=== PATIENT | female | born 1980 | race Caucasian/White ===

== ENCOUNTER → 2017-07-18 | Emergency (ER) | payer OTHER ==
[~2017-07-18] VITALS: Ht 157.5 cm; Wt 79.4 kg
[~2017-07-18] MED LIST: ABILIFY15 MG PO; CELEXA10 MG PO; CLEOCIN40 GM TP; HYDROXYZINE PA100 MG PO; IMITREX100 MG PO; KEFLEX500 MG PO; OMEPRAZOLE20 MG PO; PRAZOSIN HCL1 MG PO; PROPANOLOL PO; VISTARIL25 MG PO; VITAMIN D50000 UNI1 PO; VIVLODEX10 MG PO; ZYPREXA5 MG PO
== END ==
LOC: ED 10:59
DX: N89.8 Other specified noninflammatory disorders of vagina (principal); E87.6 Hypokalemia; F15.10 Other stimulant abuse, uncomplicated; F17.200 Nicotine dependence, unspecified, uncomplicated; F41.9 Anxiety disorder, unspecified; F32.9 Major depressive disorder, single episode, unspecified; Z87.442 Personal history of urinary calculi; Z90.49 Acquired absence of other specified parts of digestive tract; Z98.51 Tubal ligation status; Z88.8 Allergy status to other drugs, medicaments and biological substances; Z79.899 Other long term (current) drug therapy
CPT/HCPCS: 80053; 81001; 84703; 85025; 86703; 87070; 87147; 87205; 87220; 87491; 87591; 96374; 99284; J0696; J7030

== ENCOUNTER 2017-08-05 14:37 | Emergency (ER) | payer OTHER ==
[~2017-08-05] VITALS: Ht 157.5 cm; Wt 79.4 kg
[~2017-08-05 14:37] MED LIST changes: -VIVLODEX10 MG PO
[2017-08-05] MEDS ORDERED: VIVLODEX10 MG PO (14:54)
== END 2017-08-05 17:51 | disposition home or self-care (01) ==
LOC: ED 14:37
PROC: 0T9B70Z Drainage of Bladder with Drainage Device, Via Natural or Artificial Opening (ICD-10-PCS; principal; 2017-08-05)
DX: Z00.8 Encounter for other general examination (principal); F41.9 Anxiety disorder, unspecified; F32.9 Major depressive disorder, single episode, unspecified; F17.200 Nicotine dependence, unspecified, uncomplicated; Z90.49 Acquired absence of other specified parts of digestive tract; Z87.442 Personal history of urinary calculi; Z98.51 Tubal ligation status; Z88.8 Allergy status to other drugs, medicaments and biological substances; Z79.899 Other long term (current) drug therapy
CPT/HCPCS: 36415; 51701; 80053; 80176; 81001; 84443; 84703; 85025; 99283; G0480

== ENCOUNTER 2017-11-13 16:38 | Emergency (ER) | payer OTHER ==
[~2017-11-13] VITALS: Ht 157.5 cm; Wt 79.8 kg
[~2017-11-13 16:38] MED LIST changes: +VIVLODEX10 MG PO
--- NOTE | 2017-11-14 12:11 | NUR ---
MILO: [employer] CALLED REQUESTING THAT THE PT'S LAB RESULTS BE FAXED OVER. LABS WERE FAXED AND I GOT CONFIRMATION THEY WERE RECIEVED.
== END 2017-11-13 19:06 | disposition home or self-care (01) ==
LOC: ED 16:38
DX: S64.01XA Injury of ulnar nerve at wrist and hand level of right arm, initial encounter (principal); Z02.89 Encounter for other administrative examinations; Z88.8 Allergy status to other drugs, medicaments and biological substances; F17.200 Nicotine dependence, unspecified, uncomplicated; Z90.49 Acquired absence of other specified parts of digestive tract; Z98.51 Tubal ligation status; Z79.899 Other long term (current) drug therapy; Z87.442 Personal history of urinary calculi; W22.8XXA Striking against or struck by other objects, initial encounter
CPT/HCPCS: 80053; 80176; 81001; 84443; 85025; 99283; G0480

== ENCOUNTER 2019-01-22 20:49 | Emergency (ER) | payer OTHER ==
[~2019-01-22] VITALS: Ht 157.5 cm; Wt 81.7 kg
[~2019-01-22 20:49] MED LIST changes: +BACTRIM DS TAB1 EACH PO; +CIPRO500 MG PO; +CLONIDINE HCL0.1 MG PO; +NORCO 5-325 TA1 EACH PO
--- OUTSIDE RECORDS SUMMARY | 2019-01-22 20:52 | XMS ---
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 Presenting Problem: Pt has had 10 ED visits within multiple health systems in 12 months. Mult. Complaints UTI/Cervical Infection Bumps on arm Rash all over Anxiety Disorder Hypokalemia Headache Abdominal Pain Anxiety Disorder Anxiety Disorder Primary Providers: Unsure if patient has PCP in hometown of [place] Barriers to connection to outpatient care: Recent relocation to [place], [place] for [facility] residential treatment program, will need to establish PCP care Strengths and Supports: Pt has insurance Safety Concerns: History of substance abuse and anxiety Plan when in the ED: Provide appropriate but directed workup and disposition Provide education on appropriate use of the ED and alternatives to address non-emergent issues such as urgent care clinics and walk in clinics Encourage follow up and connection with outpatient providers Care History Medical/Surgical 06/30/2018 [facility] - PATIENT HAS NOT ESTABLISHED CARE WITH DR GAYLE PCP. PATIENT HAS NO SHOWED 3X TO EVERY APT TO ESTABLISH CARE WITH PROVIDER. PLEASE DIRECT PATIENT TO CLINIC FOR NON EMERGENT MEDICAL NEEDS. - Patient is currently established with [facility]. If patient is seen in the ED during business hours. Please contact CHWs at [facility]. Care Recommendation: This patient has had 5 or more Emergency Department visits in the last 12 months.\T\nbsp; Patient requires education on the scope and purpose of the ED as an acute care provider not a Primary Care Provider and should not be utilized for chronic conditions.\T\nbsp; These are guidelines and the provider should exercise clinical judgment when providing care. E.D. VISIT COUNT (12 MO.) 2 [facility] [address] TOTAL 9 NOTE: Visits indicate total known visits. ED/UCC VISIT TRACKING (12 MO.) 01/22/2019 20:49 T[facility] Ramirez TYPE: Emergency COMPLAINT: - SORE THROAT 11/11/2018 12:35 TESFA[facility] Ramirez TYPE: Emergency COMPLAINT: - MEDICAL CLEARANCE DIAGNOSES: - Other mcfp (current) drug therapy - Anxiety disorder, unspecified - Nicotine dependence, unspecified, uncomplicated - USP (current) use of aspirin - Migraine, unspecified, not intractable, without status migrainosus - Encounter for other general examination - Major depressive disorder, single episode, unspecified - Post-traumatic stress disorder, unspecified - Schizoaffective disorder, unspecified - Allergy status to other antibiotic agents status - Sedative, hypnotic or anxiolytic abuse, uncomplicated 10/19/2018 08:55 [facility] Xiomara MONIQUE TYPE: Emergency DIAGNOSES: - Unspecified psychosis not due to a substance or known physiological condition 10/18/2018 10:26 [facility] Xi[facility]ara Hernandeza Bala MONIQUE TYPE: Emergency DIAGNOSES: - Unspecified psychosis not due to a substance or known physiological condition - Medical Evaluation 09/21/2018 19:30 [facility] DIAGNOSES: 0. WHEEZING SHORT OF BREATH 09/17/2018 23:31 [facility]: [facility] DIAGNOSES: 0. 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 06/28/2018 13:42 T[facility] Car[facility] [place] TYPE: Emergency COMPLAINT: - WOUND CHECK/MSE TO CLINIC DIAGNOSES: - Encounter for surgical aftercare following surgery on the skin and subcutaneous tissue - Nicotine dependence, unspecified, uncomplicated - Cutaneous abscess of left axilla 06/26/2018 20:59 TES[facility] Carrera [place] TYPE: Emergency COMPLAINT: - POSS ABCESS ON LEFT ARM DIAGNOSES: - Other moth exterminator (current) drug therapy - Anxiety disorder, unspecified - Cutaneous abscess of left axilla - Allergy status to other drugs, medicaments and biological substances status - Major depressive disorder, single episode, unspecified - Migraine, unspecified, not intractable, without status migrainosus - Post-traumatic stress disorder, unspecified - Nicotine dependence, unspecified, uncomplicated - Cutaneous abscess of right axilla INPATIENT VISIT TRACKING (12 MO.) 09/21/2018 22:40 [facility] [place] TYPE: [facility] DIAGNOSES: 0. ACUTE HYPOXIC RESPIRATORY FAILRURE ALEXANDR COMM PNEUMO [email or web address]
[2019-01-22] MEDS ORDERED: CLARITHROMYCIN500 MG PO (23:02)
== END 2019-01-22 23:16 | disposition home or self-care (01) ==
LOC: ED 20:49
DX: J02.9 Acute pharyngitis, unspecified (principal); F41.9 Anxiety disorder, unspecified; F32.9 Major depressive disorder, single episode, unspecified; F43.10 Post-traumatic stress disorder, unspecified; G43.909 Migraine, unspecified, not intractable, without status migrainosus; F17.200 Nicotine dependence, unspecified, uncomplicated; Z88.8 Allergy status to other drugs, medicaments and biological substances; Z88.2 Allergy status to sulfonamides; Z88.1 Allergy status to other antibiotic agents; Z79.899 Other long term (current) drug therapy
CPT/HCPCS: 87880; 99283

== ENCOUNTER 2019-12-09 22:59 | Emergency (ER) | payer OTHER ==
[~2019-12-09] VITALS: Ht 157.5 cm; Wt 81.6 kg
--- OUTSIDE RECORDS SUMMARY | ~2019-12-09 | XMS | Encounter Summary ---
Demographics + + + | Address | [address] | | | [place] [address] | + + + | Home Phone | | + + + | Preferred Language | Unknown | + + + | Marital Status | Single | + + + | Judaism Affiliation | Unknown | + + + | Race | Unknown | + + + | Ethnic Group | Unknown | + + + Author + + + | Author | [facility] | | | and [place] | + + + | Organization | [facility] | | | and [place] | + + + | Address | Unknown | + + + | Phone | Unavailable | + + + Support + + + + + | Name | Relationship | Address | Phone | + + + + + | Vanesa Shukla | ECON | [place] | | | | | [address] | | + + + + + | Vanesa Shukla | ECON | [place] | | | | | [phone] | | + + + + + Care Team Providers + +------+ + | Care Automobile Mechanic Assistant Name | Role | Phone | + +------+ + PCP | Unavailable | + +------+ + Encounter Details +--------+ + + + + | Date | Type | Department | Care Team | Description | +--------+ + + + + | 10/29/ | Hospital | [facility] | | | | 2000 | Encounter | [facility] | | | | | | CENTER [address] | | | | | | [place] | | | | | | [address] | | | | | | [phone] | | | +--------+ + + + + Social History + +-------+ +--------+------+ | Tobacco Use | Types | Packs/Day | Years | Date | | | | | Used | | + +-------+ +--------+------+ | Never Assessed | | | | | + +-------+ +--------+------+ + + + | Sex Assigned at | Date Recorded | | | | + + + | Not on file | | + + + + + + + | Job Start Date | Occupation | Industry | + + + + | Not on file | Not on file | Not on file | + + + + + + + + | Travel History | Travel Start | Travel End | + + + + + + | No recent travel history available. | + + documented as of this encounter Plan of Treatment Not on filedocumented as of this encounter Visit Diagnoses Not on filedocumented in this encounter"
--- OUTSIDE RECORDS SUMMARY | ~2019-12-09 | XMS | Encounter Summary ---
Demographics + + + | Address | [address] | | | [place] [address] | + + + | Home Phone | | + + + | Preferred Language | Unknown | + + + | Marital Status | Single | + + + | Latter Day Affiliation | Unknown | + + + | Race | Unknown | + + + | Ethnic Group | Unknown | + + + Author + + + | Author | [facility] | | | and [place] | + + + | Organization | [facility] | | | and [place] | + + + | Address | Unknown | + + + | Phone | Unavailable | + + + Support + + + + + | Name | Relationship | Address | Phone | + + + + + | Vanesa Shukla | ECON | [place] | | | | | [phone] | | + + + + + | Vanesa Shukla | ECON | [place] | | | | | [address] | | + + + + + Care Team Providers + +------+ + | Care Topographical Surveyor Name | Role | Phone | + +------+ + PCP | Unavailable | + +------+ + Encounter Details +--------+ + + + + | Date | Type | Department | Care Team | Description | +--------+ + + + + | 09/17/ | Hospital | [facility] | | | | 2004 | Encounter | MED CTR XRAY [address] | | | | | | [address] [place] | | | | | | [place] [address] | | | | | | [phone] | | | +--------+ + + + [...]
--- OUTSIDE RECORDS SUMMARY | ~2019-12-09 | XMS | Encounter Summary ---
Demographics + + + | Address | [address] | | | [place] [address] | + + + | Home Phone | | + + + | Preferred Language | Unknown | + + + | Marital Status | Single | + + + | Denominational Affiliation | Unknown | + + + | Race | Unknown | + + + | Ethnic Group | Unknown | + + + Author + + + | Author | [facility] | | | and [place] | + + + | Organization | [facility] [place] | | | and [place] | + + + | Address | Unknown | + + + | Phone | Unavailable | + + + Support + + + + + | Name | Relationship | Address | Phone | + + + + + | Vanesa Shukla | ECON | [place] | | | | | [address] | | + + + + + | Vanesa Shukla | ECON | [place] | | | | | [address] | | + + + + + Care Team Providers + +------+ + | Care Filter Assembler Name | Role | Phone | + +------+ + PCP | Unavailable | + +------+ + Encounter Details +--------+ + + + + | Date | Type | Department | Care Team | Description | +--------+ + + + + | 10/12/ | Hospital | [facility] | Jesus Espinal | | | 2010 - | Encounter | MED CTR EMERGENCY | MD Miller [address] | | | | | [place]ENNET[place] [address] | [facility] | | | 10/13/ | | [place], [place] | [place] [address] | | | 2010 | | [address] | [phone] | | | | | [phone] | | | +--------+ + + + [...] Not on filedocumented as of this encounter Procedures + +--------+ + + + | Procedure Name | Priori | Date/Time | Associated Diagnosis | Comments | | | ty | | | | + +--------+ + + + | DRUGS OF ABUSE, | Routin | 10/13/2011 | | Results for this | | SCREEN, URINE | e | 2:14 AM | | procedure are in the | | | | PST | | results section. | + +--------+ + + + | CBC WITH | Routin | 10/12/2011 | | Results for this | | DIFFERENTIAL | e | 10:55 PM | | procedure are in the | | | | PST | | results section. | + +--------+ + + + | BASIC METABOLIC | Routin | 10/12/2011 | | Results for this | | PANEL | e | 10:55 PM | | procedure are in the | | | | PST | | results section. | + +--------+ + + + | CT ABDOMEN PELVIS W | | 10/12/2011 | | Results for this | | CONTRAST | | 9:30 PM | | procedure are in the | | | | PST | | results section. | + +--------+ + + + documented in this encounter Results Drugs of Abuse, Screen, Urine (10/13/2011 2:14 AM PST) + + + + + + | Component | Value | Ref Range | Performed | Pathologist | | | | | At | Signature | + + + + + + | Amphetamine | POSITIVE | NEGATIVE | [facility] | | | Screen, | | | [facility] | | | Urine | | | MEDICAL | | | | | | CENTER - | | | | | | LABORATORY | | + + + + + + | Barbiturate | NEGATIVE | NEGATIVE | [facility] | | | s Screen, | | | [facility] | | | Urine | | | MEDICAL | | | | | | CENTER - | | | | | | LABORATORY | | + + + + + + | Benzodiazep | NEGATIVE | NEGATIVE | [facility] | | | britt | | | [facility] | | | Screen, | | | MEDICAL | | | Urine | | | CENTER - | | | | | | LABORATORY | | + + + + + + | Cannabinoid | POSITIVE | NEGATIVE | [facility] | | | s Screen, | | | [facility] | | | Urine | | | MEDICAL | | | | | | CENTER - | | | | | | LABORATORY | | + + + + + + | Cocaine | NEGATIVE | NEGATIVE | [facility] | | | Metabolite | | | [facility] | | | | | | MEDICAL | | | | | | CENTER - | | | | | | LABORATORY | | + + + + + + | Opiates | NEGATIVEComment: The | NEGATIVE | [facility] | | | Screen, | following drugs or | | [facility] | | | Urine | classes were screened | | MEDICAL | | | | for by immunoassay at | | CENTER - | | | | these cutoff | | LABORATORY | | | | concentrations: | | | | | | Amphetamines | | | | | | 1000 ng/mL | | | | | | Barbiturates | | | | | | 200 ng/mL | | | | | | Benzodiazepines | | | | | | 200 ng/mL | | | | | | Cannabinoids | | | | | | 50 ng/mL | | | | | | Cocaine Metabolite | | | | | | 300 ng/mL | | | | | | Opiates | | | | | | 300 ng/mL | | | | | | This emergency urinary | | | | | | drug screen will not | | | | | | exclude drugs at | | | | | | levels below the | | | | | | cut-off point for | | | | | | screening, and may not | | | | | | correlate with current | | | | | | blood levels. These | | | | | | results should not be | | | | | | used for non-medical | | | | | | purposes. For important | | | | | | clinical decisions, | | | | | | confirmation by separate | | | | | | assay should be done. | | | | | | | | | | + + + + + + + + | Specimen | + + | | + + + + + + + | Performing | Address | City/State/Zipcode | Phone Number | | Organization | | | | + + + + + | [facility] | [address] | [place], [place] | [phone] | | [facility] | | [address] | | | - LABORATORY | | | | + + + + + | [facility] | [address] | [place], [place] | | | [facility] | | [address] | | | - LABORATORY | | | | + + + + + CBC with Differential (10/12/2011 10:55 PM PST) + + + + + + | Component | Value | Ref Range | Performed | Pathologist | | | | | At | Signature | + + + + + + | WBC | 11.3 (H) | 4.0 - 11.0 K/uL | [facility] | | | [facility] | | | | | | MEDICAL | | | | | | CENTER - | | | | | | LABORATORY | | + + + + + + | RBC | 4.51 | 3.70 - 5.20 | [facility] | | | | | M/uL | [facility] | | | | | | MEDICAL | | | | | | CENTER - | | | | | | LABORATORY | | + + + + + + | Hemoglobin | 13.9 | 11.5 - 16.0 | [facility] | | | | | gm/dL | [facility] | | | | | | MEDICAL | | | | | | CENTER - | | | | | | LABORATORY | | + + + + + + | Hematocrit | 40.4 | 34.0 - 47.0 % | [facility] | | | | | | [facility] | | | | | | MEDICAL | | | | | | CENTER - | | | | | | LABORATORY | | + + + + + + | MCV | 89.8 | 83.0 - 101.0 fL | [facility] | | | | | | [facility] | | | | | | MEDICAL | | | | | | CENTER - | | | | | | LABORATORY | | + + + + + + | MCH | 31.0 | 28.0 - 35.0 pg | [facility] | | | | | | [facility] | | | | | | MEDICAL | | | | | | CENTER - | | | | | | LABORATORY | | + + + + + + | MCHC | 34.5 | 32.0 - 36.0 | [facility] | | | | | g/dL | [facility] | | | | | | MEDICAL | | | | | | CENTER - | | | | | | LABORATORY | | + + + + + + | RDW-CV | 14.3 | <15.0 % | [facility] | | | | | | [facility] | | | | | | MEDICAL | | | | | | CENTER - | | | | | | LABORATORY | | + + + + + + | Platelet | 369 | 140 - 440 K/uL | [facility] | | | Count | | | [facility] | | | | | | MEDICAL | | | | | | CENTER - | | | | | | LABORATORY | | + + + + + + | % | 77.6 (H) | 45 - 75 % | [facility] | | | Neutrophils | | | [facility] | | | | | | MEDICAL | | | | | | CENTER - | | | | | | LABORATORY | | + + + + + + | % | 16.3 (L) | 20 - 45 % | [facility] | | | Lymphocytes | | | [facility] | | | | | | MEDICAL | | | | | | CENTER - | | | | | | LABORATORY | | + + + + + + | % Monocytes | 4.3 | 4 - 12 % | [facility] | | | | | | [facility] | | | | | | MEDICAL | | | | | | CENTER - | | | | | | LABORATORY | | + + + + + + | % | 1.1 | 0 - 5 % | [facility] | | | Eosinophils | | | [facility] | | | | | | MEDICAL | | | | | | CENTER - | | | | | | LABORATORY | | + + + + + + | % Basophils | 0.7 | 0 - 1 % | [facility] | | | | | | [facility] | | | | | | MEDICAL | | | | | | CENTER - | | | | | | LABORATORY | | + + + + + + | Absolute | 8.8 (H) | 1.5 - 6.6 K/uL | [facility] | | | Neutrophils | | | [facility] | | | | | | MEDICAL | | | | | | CENTER - | | | | | | LABORATORY | | + + + + + + | Absolute | 1.8 | 0.6 - 3.2 K/uL | [facility] | | | Lymphocytes | | | [facility] | | | | | | MEDICAL | | | | | | CENTER - | | | | | | LABORATORY | | + + + + + + | Absolute | 0.5 | 0.0 - 1.0 K/uL | [facility] | | | Monocytes | | | [facility] | | | | | | MEDICAL | | | | | | CENTER - | | | | | | LABORATORY | | + + + + + + | Absolute | 0.1 | 0.0 - 0.4 K/uL | [facility] | | | Eosinophils | | | [facility] | | | | | | MEDICAL | | | | | | CENTER - | | | | | | LABORATORY | | + + + + + + | Absolute | 0.1 | 0.0 - 0.1 K/uL | [facility] | | | Basophils | | | [facility] | | | | | | MEDICAL | | | | | | CENTER - | | | | | | LABORATORY | | + + + + + + + + | Specimen | + + | | + + + + + + + | Performing | Address | City/State/Zipcode | Phone Number | | Organization | | | | + + + + + | [facility] | [address] | [place] | [phone] | | [facility] | | [address] | | | - LABORATORY | | | | + + + + + | [facility] | [address] | [place] | | | [facility] | | [address] | | | - LABORATORY | | | | + + + + + Basic Metabolic Panel (10/12/2011 10:55 PM PST) + + + + + + | Component | Value | Ref Range | Performed | Pathologist | | | | | At | Signature | + + + + + + | Glucose | 82 | 70 - 109 mg/dL | [facility] | | | | | | [facility] | | | | | | MEDICAL | | | | | | CENTER - | | | | | | LABORATORY | | + + + + + + | Calcium | 9.2 | 8.3 - 10.5 | [facility] | | | | | mg/dL | [facility] | | | | | | MEDICAL | | | | | | CENTER - | | | | | | LABORATORY | | + + + + + + | BUN | 9 | 7 - 18 mg/dL | [place] | | | | | | [facility] | | | | | | MEDICAL | | | | | | CENTER - | | | | | | LABORATORY | | + + + + + + | Creatinine | 0.89 | 0.60 - 1.30 | [facility] | | | | | mg/dL | [facility] | | | | | | MEDICAL | | | | | | CENTER - | | | | | | LABORATORY | | + + + + + + | Estimated | >60Comment: For | >60 mL/min/A | [facility] | | | GFR | -Americans, | | [facility] | | | | please multiply the | | MEDICAL | | | | result by 1.210 | | CENTER - | | | | This is an estimated | | LABORATORY | | | | GFR and is based on a | | | | | | standard adult | | | | | | body mass (A=1.73m2) and | | | | | | serum creatinine | | | | + + + + + + | BUN/Creatin | 10.1 (L) | 12 - 20 | [facility] | | | ine Ratio | | | [facility] | | | | | | MEDICAL | | | | | | CENTER - | | | | | | LABORATORY | | + + + + + + | Na | 139 | 136 - 149 mEq/L | [facility] | | | | | | [facility] | | | | | | MEDICAL | | | | | | CENTER - | | | | | | LABORATORY | | + + + + + + | K | 3.4 (L) | 3.5 - 5.1 mEq/l | [facility] | | | | | | [facility] | | | | | | MEDICAL | | | | | | CENTER - | | | | | | LABORATORY | | + + + + + + | Cl | 105 | 98 - 109 mEq/l | [facility] | | | | | | [facility] | | | | | | MEDICAL | | | | | | CENTER - | | | | | | LABORATORY | | + + + + + + | CO2 | 22 (L) | 24 - 31 mEq/L | [facility] | | | | | | [facility] | | | | | | MEDICAL | | | | | | CENTER - | | | | | | LABORATORY | | + + + + + + | Anion Gap | 15.4 | 6.0 - 17.0 | [facility] | | | | | | [facility] | | | | | | MEDICAL | | | | | | CENTER - | | | | | | LABORATORY | | + + + + + + + + | Specimen | + + | | + + + + + + + | Performing | Address | City/State/Zipcode | Phone Number | | Organization | | | | + + + + + | [facility] | [address] | [place] | [phone] | | [facility] | | [address] | | | - LABORATORY | | | | + + + + + | [facility] | [address] | [place], [place] | | | [facility] | | [address] | | | - LABORATORY | | | | + + + + + CT Abdomen Pelvis w Contrast (10/12/2011 9:30 PM PST) + + | Specimen | + + | | + + + + + | Narrative | Performed At | + + + | [facility] Diagnostic Imaging Department | [facility] | | [address] [facility] | [facility] | | CT ABDOMEN AND PELVIS WITH | DIAG IMG | | CONTRAST: 10/12/2011 CLINICAL HISTORY: BLOOD IN URINE. | | | COMPARISON: 12/19/2008. TECHNIQUE: Imaging was performed from | | | the lung bases through the pubic symphysis without and with co | | | ntrast and following the uneventful intravenous administration of 80 | | | mL of Isovue 370. FINDINGS: LOWER LUNGS: The lower lungs | | | are clear. There are no pleural effusions. No pneumothorax. | | | ABDOMEN/PELVIS: Focal fatty infiltration along the falciform | | | ligament. The remainder of the liver i s unremarkable. The | | | gallbladder is nondistended. There is a probably cyst in the right | | | kidney, unch anged in size. Unobstructing nephrolith in the left | | | upper pole. Punctate nephrolith in the left low er pole. No | | | evidence for an obstructing uropathy in either kidney. There are no | | | ureteroliths. Ther e are no adrenal masses. The spleen is | | | unremarkable. The pancreas is unremarkable. There is no rei dence | | | for gastrointestinal tract obstruction. The appendix is not clearly | | | identified. No inflammato ry changes in the right or left. There | | | is a cyst in the left adnexa, likely associated with the left ovary | | | measuring about 2.2 cm. No significant free fluid. No free air. | | | IMPRESSION: 1. A 2.2 CM CYSTIC STRUCTURE IN THE LEFT | | | ADNEXA, LIKELY AN OVARIAN CYST. 2. STABLE SMALL CYSTIC STRUCTURE | | | IN THE RIGHT KIDNEY, PRESUMED TO BE A SIMPLE CYST, TO SMALL TO TERA | | | ACTERIZE ON THIS EXAM. COMMENT: PRELIMINARY REPORT WAS PROVIDED | | | BY DR. COLE ON 10/13/2011 AT 1:26 A.M., CENTRAL TIME. Dictated | | | Date/Time: 10/13/2011 07:45 Transcribed Date/Time: 10/13/2011 | | | 09:25 Barber Shop Operator: ALBAN <Electronically Signed by Saravanan Sampson | | | MD [place]> 10/13/11 1807 | | + + + + + | Procedure Note | + + | James Godfrey Conversion - 01/06/2014 4:13 PM [facility] | | Diagnostic Imaging Department [address] [place] [address] | | CT ABDOMEN AND PELVIS WITH CONTRAST: 10/12/2011 | | CLINICAL HISTORY: BLOOD IN URINE. COMPARISON: 12/19/2008. TECHNIQUE: Imaging was | | performed from the lung bases through the pubic symphysis without and with contrast and | | following the uneventful intravenous administration of 80 mL of Isovue 370. FINDINGS: | | LOWER LUNGS: The lower lungs are clear. There are no pleural effusions. No | | pneumothorax. ABDOMEN/PELVIS: Focal fatty infiltration along the falciform ligament. | | The remainder of the liver is unremarkable. The gallbladder is nondistended. There is | | a probably cyst in the right kidney, unchanged in size. Unobstructing nephrolith in | | the left upper pole. Punctate nephrolith in the left lower pole. No evidence for an | | obstructing uropathy in either kidney. There are no ureteroliths. There are no adrenal | | masses. The spleen is unremarkable. The pancreas is unremarkable. There is no | | evidence for gastrointestinal tract obstruction. The appendix is not clearly | | identified. No inflammatory changes in the right or left. There is a cyst in the left | | adnexa, likely associated with the left ovary measuring about 2.2 cm. No significant | | free fluid. No free air. IMPRESSION: 1. A 2.2 CM CYSTIC STRUCTURE IN THE LEFT | | ADNEXA, LIKELY AN OVARIAN CYST. 2. STABLE SMALL CYSTIC STRUCTURE IN THE RIGHT KIDNEY, | | PRESUMED TO BE A SIMPLE CYST, TO SMALL TO CHARACTERIZE ON THIS EXAM. COMMENT: | | PRELIMINARY REPORT WAS PROVIDED BY DR. COLE ON 10/13/2011 AT 1:26 A.M., CENTRAL TIME. | | Dictated Date/Time: 10/13/2011 07:45Transcribed Date/Time: 10/13/2011 | | 09:25Transcriptionist: <Electronically Signed by Saravanan Toledo MD> 10/13/11 | | 1807 | |e are no adrenal masses. The spleen is unremarkable. The pancreas is unremarkable. There is no rei | |dence for gastrointestinal tract obstruction. The appendix is not clearly identified. No inflammato | |ry changes in the right or left. There is a cyst in the left adnexa, likely associated wit h the left | | ovary measuring about 2.2 cm. No significant free fluid. No free air. | | | |IMPRESSION: | |1. A 2.2 CM CYSTIC STRUCTURE IN THE LEFT ADNEXA, LIKELY AN OVARIAN CYST. | | | |2. STABLE SMALL CYSTIC STRUCTURE IN THE RIGHT KIDNEY, PRESUMED TO BE A SIMPLE CYST, TO SMA LL TO TERA | |ACTERIZE ON THIS EXAM. | | | |COMMENT: PRELIMINARY REPORT WAS PROVIDED BY DR. COLE ON 10/13/2011 AT 1:26 A.M., CENTRAL TIME. | | | |Dictated Date/Time: 10/13/2011 07:45 | |Transcribed Date/Time: 10/13/2011 09:25 | |Barber Shop Operator: ALBAN | |<Electronically Signed by Saravanan Toledo MD> 10/13/11 1807 | + + + +---------+ + + | Performing | Address | City/State/Zipcode | Phone Number | | Organization | | | | + +---------+ + + | [place] | | | | | [facility] | | | | + +---------+ + + documented in this encounter Visit Diagnoses Not on filedocumented in this encounter"
--- OUTSIDE RECORDS SUMMARY | ~2019-12-09 | XMS | Encounter Summary ---
Demographics + + + | Address | [address] | | | [place] [address] | + + + | Home Phone | | + + + | Preferred Language | Unknown | + + + | Marital Status | Single | + + + | Sabianist Affiliation | Unknown | + + + | Race | Unknown | + + + | Ethnic Group | Unknown | + + + Author + + + | Author | [facility] | | | and [place] | + + + | Organization | [facility] | | | and [place] | + + + | Address | Unknown | + + + | Phone | Unavailable | + + + Support + + + + + | Name | Relationship | Address | Phone | + + + + + | Vanesa Shukla | ECON | [place] | | | | | [address] | | + + + + + | Vanesa Shukla | ECON | [place] | | | | | [address] | | + + + + + Care Team Providers + +------+ + | Care Coal Cutter Name | Role | Phone | + +------+ + PCP | Unavailable | + +------+ + Encounter Details +--------+ + + + + | Date | Type | Department | Care Team | Description | +--------+ + + + + | 06/16/ | Hospital | [facility] | | | | 1993 | Encounter | MED CTR XRAY [address] | | | | | | [place] | | | | | | [place] [address] | | | | | | [phone] | | | +--------+ + + + [...]
--- OUTSIDE RECORDS SUMMARY | ~2019-12-09 | XMS | Clinical Summary ---
Demographics + + + | Address | [address] | | | [place] [address] | + + + | Home Phone | | + + + | Preferred Language | Unknown | + + + | Marital Status | Unknown | + + + | Mandaeism Affiliation | Unknown | + + + | Race | Unknown | + + + | Ethnic Group | Unknown | + + + Author + + + | Author | [facility] (Historical as of | | | 07-16-19) | + + + | Organization | [facility] | | | 07-16-19) | + + + | Address | Unknown | + + + | Phone | Unavailable | + + + Care Team Providers + +------+ + | Care Clinical Medical Transcriptionist Name | Role | Phone | + +------+ + PP | Unavailable | + +------+ + Allergies Not on File Current Medications Not on file Active Problems Not on file Social History + +-------+ +--------+------+ | Tobacco [...] on file | | + + + Plan of Treatment + + + + + | Health Maintenance | Due Date | Last Done | Comments | + + + + + | Vaccine: | | | | | Dtap/Tdap/Td (1 - | 9 | | | | Tdap) | | | | + + + + + | Cervical Cancer | | | | | Screening (Pap) | 0 | | | + + + + + | Vaccine: Influenza | | | | | (#1) | 9 | | | + + + + + Results Not on filefrom Last 3 Months Insurance + +--------+ +------+-------+ + | Payer | Benefi | Subscriber | Type | Phone | Address | | | t Plan | ID | | | | | | / | | | | | | | Group | | | | | + +--------+ +------+-------+ + | MEDICAID | [place] | [id number] | | | [address] | | | [place] | | | | [place] | | | [place] | | | | [address] | | | [employer] | | | | | + +--------+ +------+-------+ + + +--------+ +--------+ + + | Guarantor Name | Accoun | Relation to | Date | Phone | Billing Address | | | t Type | Patient | of | | | | | | | | | | + +--------+ +--------+ + + | OLIVE GARRETT | Person | Self [birth year] | Home: | [address] | | | al/Fam | | 1980 | [phone] [place] [address] | | | jadiel | | | [phone] | | + +--------+ +--------+ + +"
--- OUTSIDE RECORDS SUMMARY | ~2019-12-09 | XMS | Encounter Summary ---
Demographics + + + | Address | [address] | | | [place] [address] | + + + | Home Phone | | + + + | Preferred Language | Unknown | + + + | Marital Status | Single | + + + | Lutheran Affiliation | Unknown | + + + | Race | Unknown | + + + | Ethnic Group | Unknown | + + + Author + + + | Author | [facility] | | | and [place] | + + + | Organization | [facility] | | | and [place] | + + + | Address | Unknown | + + + | Phone | Unavailable | + + + Support + + + + + | Name | Relationship | Address | Phone | + + + + + | Vanesa Shukla | ECON | [place] | | | | | [address] | | + + + + + | Vanesa Shukla | ECON | [place] | | | | | [address] | | + + + + + Care Team Providers + +------+ + | Care Software Architect Name | Role | Phone | + +------+ + PCP | Unavailable | + +------+ + Encounter Details +--------+ + + + + | Date | Type | Department | Care Team | Description | +--------+ + + + + | 12/17/ | Hospital | [facility] | [place], | | | 2006 - | Encounter | MED CTR EMERGENCY | Layo Thomas MD [address] | | | | [place] [address] | [facility] | | | 12/18/ | | [place], [place] | [place] [address] | | | 2006 | | [address] | [phone] | | | | | [phone] | | | +--------+ + + + [...]
--- OUTSIDE RECORDS SUMMARY | ~2019-12-09 | XMS | Encounter Summary ---
Demographics + + + | Address | [address] | | | [place] [address] | + + + | Home Phone | | + + + | Preferred Language | Unknown | + + + | Marital Status | Single | + + + | Yarsanism Affiliation | Unknown | + + + | Race | Unknown | + + + | Ethnic Group | Unknown | + + + Author + + + | Author | [facility] | | | and [place] | + + + | Organization | [facility] | | | and [place] | + + + | Address | Unknown | + + + | Phone | Unavailable | + + + Support + + + + + | Name | Relationship | Address | Phone | + + + + + | Vanesa Shukla | ECON | [place] | | | | | [address] | | + + + + + | Vanesa Shukla | ECON | [place] | | | | | [address] | | + + + + + Care Team Providers + +------+ + | Care Arnp Name | Role | Phone | + +------+ + | Mulu Mendez | PCP | | + +------+ + Reason for Visit + + + | Reason | Comments | + + + | Lab Results | | + + + Encounter Details +--------+ + + + + | Date | Type | Department | Care Team | Description | +--------+ + + + + | 10/17/ | Telephone | [facility] | Mulu Mendez, | Lab Results | | 2019 | | [facility] | [facility] [address] [place] [address] | | | | | [facility] [address] | [place] [address] | | | | | [facility] [facility], | [phone] | | | | | [place] [address] | | | | | | [phone] | | | +--------+ + + + + Social History + +-------+ +--------+------+ | Tobacco Use | Types | Packs/Day | Years | Date | | | | | Used | | + +-------+ +--------+------+ | Current Every Day | | 0.5 | | | | Smoker | | | | | + +-------+ +--------+------+ + +---+---+---+ | Smokeless Tobacco: | | | | | Never Used | | | | + +---+---+---+ + + +---------+ + | Alcohol Use | Drinks/Week | oz/Week | Comments | + + +---------+ + | No | | | | + + +---------+ + + + + | Sex Assigned at [...]
--- OUTSIDE RECORDS SUMMARY | ~2019-12-09 | XMS | Encounter Summary ---
Demographics + + + | Address | [address] | | | [place] [address] | + + + | Home Phone | | + + + | Preferred Language | Unknown | + + + | Marital Status | Single | + + + | Orthodox Affiliation | Unknown | + + + | Race | Unknown | + + + | Ethnic Group | Unknown | + + + Author + + + | Author | [facility] | | | and [place] | + + + | Organization | [facility] | | | and [place] | + + + | Address | Unknown | + + + | Phone | Unavailable | + + + Support + + + + + | Name | Relationship | Address | Phone | + + + + + | Vanesa Shukla | ECON | [place] | | | | | [id number] | | + + + + + | Vanesa Shukla | ECON | [place] | | | | | [address] | | + + + + + Care Team Providers + +------+ + | Care Software Test Engineer Name | Role | Phone | + +------+ + PCP | Unavailable | + +------+ + Encounter Details +--------+ + + + + | Date | Type | Department | Care Team | Description | +--------+ + + + + | 05/15/ | Hospital | [facility] | | | | 1998 | Encounter | [facility] | | | | | | CONV DEPT [address] | | | | | [place], | | | | | | [place] [address] | | | | | | [phone] | | | +--------+ + + + [...]
--- OUTSIDE RECORDS SUMMARY | ~2019-12-09 | XMS | Encounter Summary ---
Demographics + + + | Address | [address] | | | [place] [address] | + + + | Home Phone | | + + + | Preferred Language | Unknown | + + + | Marital Status | Single | + + + | Mormonism Affiliation | Unknown | + + + | Race | Unknown | + + + | Ethnic Group | Unknown | + + + Author + + + | Author | [facility] | | | and [place] | + + + | Organization | [facility] | | | and [place] | + + + | Address | Unknown | + + + | Phone | Unavailable | + + + Support + + + + + | Name | Relationship | Address | Phone | + + + + + | Vanesa Shukla | ECON | [place] | | | | | [address] | | + + + + + | Vanesa Shukla | ECON | [place] | | | | | [address] | | + + + + + Care Team Providers + +------+ + | Care Motion Picture Scene Builder Name | Role | Phone | + +------+ + PCP | Unavailable | + +------+ + Encounter Details +--------+ + + + + | Date | Type | Department | Care Team | Description | +--------+ + + + + | 01/19/ | Hospital | [facility] | | | | 2007 | Encounter | [facility] | | | | | | CENTER [address] | | | | | | [place] | | | | | | [address] | | | | | | [phone] | | | +--------+ + + + [...]
--- OUTSIDE RECORDS SUMMARY | ~2019-12-09 | XMS | Encounter Summary ---
Demographics + + + | Address | [address] | | | [place] [address] | + + + | Home Phone | | + + + | Preferred Language | Unknown | + + + | Marital Status | Single | + + + | Cheondoism Affiliation | Unknown | + + + | Race | Unknown | + + + | Ethnic Group | Unknown | + + + Author + + + | Author | [facility] | | | and [place] | + + + | Organization | [facility] | | | and [place] | + + + | Address | Unknown | + + + | Phone | Unavailable | + + + Support + + + + + | Name | Relationship | Address | Phone | + + + + + | Vanesa Shukla | ECON | [place] | | | | | [address] | | + + + + + | Vanesa Shukla | ECON | [place] | + | | | | [address] | | + + + + + Care Team Providers + +------+ + | Care Insurance And Financial Services Agent Name | Role | Phone | + +------+ + | No, Physician | PCP | Unavailable | + +------+ + Reason for Visit + + + | Reason | Comments | + + + | Headache (Adult - | | | New Onset Or New | | | Symptoms) | | + + + | Nausea | | + + + | Diarrhea (Adult) | | + + + Encounter Details +--------+ + + + + | Date | Type | Department | Care Team | Description | +--------+ + + + + | 03/27/ | Emergency | [facility] | Doc Forbes, | Acute cystitis | | 2016 | | MED CTR EM[facility] | MD [address] | without hematuria | | | | CENTER [address] | [place] | (Primary Dx) | | | | [place] | [id number] | | | | | [address] | | | | | | [phone] | | | +--------+ + + + + Social History + +-------+ +--------+------+ | Tobacco Use | Types | Packs/Day | Years | Date | | | | | Used | | + +-------+ +--------+------+ | Current Every Day | | 0.5 | | | | Smoker | | | | | + +-------+ +--------+------+ + + +---------+ + | Alcohol Use [...] + + documented as of this encounter Last Filed Vital Signs + + + + + | Vital Sign | Reading | Time Taken | Comments | + + + + + | Blood Pressure | 138/79 | 03/27/2016 9:23 PM | | | | | PDT | | + + + + + | Pulse | 108 | 03/27/2016 9:23 PM | | | | | PDT | | + + + + + | Temperature | 36.3 C (97.3 F) | 03/27/2016 9:23 PM | | | | | PDT | | + + + + + | Respiratory Rate | 15 | 03/27/2016 9:23 PM | | | | | PDT | | + + + + + | Oxygen Saturation | 98% | 03/27/2016 9:23 PM | | | | | PDT | | + + + + + | Inhaled Oxygen | - | - | | | Concentration | | | | + + + + + | Weight | 81.6 kg (180 lb) | 03/27/2016 9:23 PM | | | | | PDT | | + + + + + | Height | 157.5 cm (5' 2") | 03/27/2016 9:23 PM | | | | | PDT | | + + + + + | Body Mass Index | 32.92 | 03/27/2016 9:23 PM | | | | | PDT | | + + + + + documented in this encounter Discharge Instructions AttachmentsThe following attachments cannot be sent through Care Everywhere.URINARY TRACT I NFECTIONS (UTIS), UNDERSTANDING (TUNISIAN)documented in this encounter Medications at Time of Discharge + + + +---------+ + + | Medication | Sig | Dispensed | Refills | Start | End Date | | | | | | Date | | + + + +---------+ + + | cephalexin | Take 1 capsule by | 40 | 0 | 03/27/20 | | | (KEFLEX) 500 mg | mouth 4 times daily | capsule | | 16 | 6 | | capsule | for 10 days. | | | | | + + + +---------+ + + | | Take 1 tablet by | 30 | 0 | 02/24/20 | | | HYDROcodone-acetamin | mouth every 6 hours | tablet | | 16 | 9 | | ophen (NORCO) 5-325 | as needed for Pain. | | | | | | mg per tablet | | | | | | + + + +---------+ + + documented as of this encounter Plan of Treatment Not on filedocumented as of this encounter Procedures + +--------+ + + + | Procedure Name | Priori | Date/Time | Associated Diagnosis | Comments | | | ty | | | | + +--------+ + + + | CBC W/AUTO | STAT | 03/27/2016 | | Results for this | | DIFFERENTIAL | | 9:58 PM | | procedure are in the | | | | PDT | | results section. | + +--------+ + + + | COMPREHENSIVE | STAT | 03/27/2016 | | Results for this | | METABOLIC PANEL | | 9:58 PM | | procedure are in the | | | | PDT | | results section. | + +--------+ + + + | POCT TEST, | STAT | 03/27/2016 | | Results for this | | URINE, QUAL | | 9:43 PM | | procedure are in the | | | | PDT | | results section. | + +--------+ + + + | URINALYSIS WITH | STAT | 03/27/2016 | | Results for this | | MICROSCOPIC WITH | | 9:38 PM | | procedure are in the | | CULTURE IF INDICATED | | PDT | | results section. | + +--------+ + + + | CULTURE, URINE | Routin | 03/27/2016 | | Results for this | | | e | 9:38 PM | | procedure are in the | | | | PDT | | results section. | + +--------+ + + + documented in this encounter Results Comprehensive Metabolic Panel (03/27/2016 9:58 PM PDT) + + + + + + | Component | Value | Ref Range | Performed | Pathologist | | | | | At | Signature | + + + + + + | Na | 139 | 136 - 149 | [facility] | | | | | mmol/L | [facility] | | | | | | MEDICAL | | | | | | CENTER - | | | | | | LABORATORY | | + + + + + + | K | 3.6 | 3.5 - 5.1 | [facility] | | | | | mmol/L | [facility] | | | | | | MEDICAL | | | | | | CENTER - | | | | | | LABORATORY | | + + + + + + | Cl | 107 | 98 - 109 mmol/L | [facility] | | | | | | [facility] | | | | | | MEDICAL | | | | | | CENTER - | | | | | | LABORATORY | | + + + + + + | CO2 | 24 | 24 - 31 mmol/L | [facility] | | | | | | [facility] | | | | | | MEDICAL | | | | | | CENTER - | | | | | | LABORATORY | | + + + + + + | Anion Gap | 8 | 3 - 16 mmol/L | [facility] | | | | | | [facility] | | | | | | MEDICAL | | | | | | CENTER - | | | | | | LABORATORY | | + + + + + + | Glucose | 107 | 70 - 109 mg/dL | [facility] | | | | | | [facility] | | | | | | MEDICAL | | | | | | CENTER - | | | | | | LABORATORY | | + + + + + + | BUN | 12 | 7 - 18 mg/dL | [facility] | | | | | | [facility] | | | | | | MEDICAL | | | | | | CENTER - | | | | | | LABORATORY | | + + + + + + | Creatinine | 0.78 | 0.60 - 1.30 | [facility] | | | | | mg/dL | [facility] | | | | | | MEDICAL | | | | | | CENTER - | | | | | | LABORATORY | | + + + + + + | eGFR if not | >60Comment: GLOMERULAR | >=60 | [facility] | | | | FILTRATION | mL/min/1.73m2 | [facility] | | | [place] | RATE,ESTIMATED | | MEDICAL | | | | mL/min/1.43e7Ipcs than | | CENTER - | | | | 60 Chronic kidney | | LABORATORY | | | | disease,if found over a | | | | | | 3-month period.Less than | | | | | | 15 Kidney failureFor | | | | | | | | | | | | Americans,multiply the | | | | | | calculated GFR by 1.21. | | | | | | | | | | + + + + + + | Calcium | 9.5 | 8.3 - 10.5 | [facility] | | | | | mg/dL | [facility] | | | | | | MEDICAL | | | | | | CENTER - | | | | | | LABORATORY | | + + + + + + | Albumin | 3.9 | 3.2 - 5.0 g/dL | [facility] | | | | | | [facility] | | | | | | [facility] | | | | | | CENTER - | | | | | | LABORATORY | | + + + + + + | Bilirubin | 1.0Comment: This is an | 0.1 - 1.5 mg/dL | [facility] | | | Total | appended report. These | | [facility] | | | | results have been | | MEDICAL | | | | appended to a previously | | CENTER - | | | | preliminary verified | | LABORATORY | | | | report. | | | | + + + + + + | Total | 6.4 | 6.0 - 7.8 g/dL | [facility] | | | Protein | | | [facility] | | | | | | MEDICAL | | | | | | CENTER - | | | | | | LABORATORY | | + + + + + + | AST | 40Comment: This is an | 10 - 42 U/L | [facility] | | | | appended report. These | | [facility] | | | | results have been | | MEDICAL | | | | appended to a previously | | CENTER - | | | | preliminary verified | | LABORATORY | | | | report. | | | | + + + + + + | ALT | 34Comment: This is an | 6 - 45 U/L | [facility] | | | | appended report. These | | [facility] | | | | results have been | | MEDICAL | | | | appended to a previously | | CENTER - | | | | preliminary verified | | LABORATORY | | | | report. | | | | + + + + + + | Alkaline | 48Comment: This is an | 40 - 110 U/L | [facility] | | | Phosphatase | appended report. These | | [facility] | | | | results have been | | MEDICAL | | | | appended to a previously | | CENTER - | | | | preliminary verified | | LABORATORY | | | | report. | | | | + + + + + + | Globulin | 2.5 | 2.1 - 3.8 g/dL | [facility] | | | | | | [facility] | | | | | | [facility]ICAL | | | | | | CENTER - | | | | | | LABORATORY | | + + + + + + | Albumin/Mikaela | 1.6 | 0.8 - 2.0 | [facility] | | | bulin Ratio | | | [facility] | | | | | | MEDICAL | | | | | | CENTER - | | | | | | LABORATORY | | + + + + + + | BUN/Creatin | 15.4 | | [facility] | | | ine Ratio | | | [facility] | | | | | | MEDICAL | | | | | | CENTER - | | | | | | LABORATORY | | + + + + + + + + | Specimen | + + | Blood | + + + + + + + | Performing | Address | City/State/Zipcode | Phone Number | | Organization | | | | + + + + + | [facility] | [address] | [place] | [phone] | | [facility] | | [address] | | | - LABORATORY | | | | + + + + + CBC w/ Auto Differential (03/27/2016 9:58 PM PDT) + +-------+ + + + | Component | Value | Ref Range | Performed | Pathologist | | | | | At | Signature | + +-------+ + + + | WBC | 8.5 | 4.0 - 11.0 K/uL | [facility] | | | | | | [facility] | | | | | | MEDICAL | | | | | | CENTER - | | | | | | LABORATORY | | + +-------+ + + + | RBC | 4.81 | 3.70 - 5.20 | [facility] | | | | | M/uL | [facility] | | | | | | MEDICAL | | | | | | CENTER - | | | | | | LABORATORY | | + +-------+ + + + | Hemoglobin | 14.8 | 11.5 - 16.0 | [facility] | | | | | g/dL | [facility] | | | | | | MEDICAL | | | | | | CENTER - | | | | | | LABORATORY | | + +-------+ + + + | Hematocrit | 42.9 | 34.0 - 47.0 % | [facility] | | | | | | [facility] | | | | | | MEDICAL | | | | | | CENTER - | | | | | | LABORATORY | | + +-------+ + + + | MCV | 89.2 | 83.0 - 101.0 fL | [facility] | | | | | | [facility] | | | | | | [facility]ICAL | | | | | | CENTER - | | | | | | LABORATORY | | + +-------+ + + + | MCH | 30.7 | 28.0 - 35.0 pg | [facility] | | | | | | [facility] | | | | | | MEDICAL | | | | | | CENTER - | | | | | | LABORATORY | | + +-------+ + + + | MCHC | 34.4 | 32.0 - 36.0 | [facility] | | | | | g/dL | [facility] | | | | | | MEDICAL | | | | | | CENTER - | | | | | | LABORATORY | | + +-------+ + + + | RDW-CV | 13.7 | <15.0 % | [facility] | | | | | | [facility] | | | | | | MEDICAL | | | | | | CENTER - | | | | | | LABORATORY | | + +-------+ + + + | Platelet | 304 | 140 - 440 K/uL | [facility] | | | Count | | | [facility] | | | | | | MEDICAL | | | | | | CENTER - | | | | | | LABORATORY | | + +-------+ + + + | MPV | 7.7 | fL | [facility] | | | | | | [facility] | | | | | | MEDICAL | | | | | | CENTER - | | | | | | LABORATORY | | + +-------+ + + + | % | 63.5 | 45.0 - 82.0 % | [facility] | | | Neutrophils | | | [facility] | | | | | | MEDICAL | | | | | | CENTER - | | | | | | LABORATORY | | + +-------+ + + + | % | 24.5 | 20.0 - 45.0 % | [facility] | | | Lymphocytes | | | [facility] | | | | | | MEDICAL | | | | | | CENTER - | | | | | | LABORATORY | | + +-------+ + + + | % Monocytes | 8.8 | 4.0 - 12.0 % | [facility] | | | | | | [facility] | | | | | | MEDICAL | | | | | | CENTER - | | | | | | LABORATORY | | + +-------+ + + + | % | 2.2 | 0.0 - 5.0 % | [facility] | | | Eosinophils | | | [facility] | | | | | | MEDICAL | | | | | | CENTER - | | | | | | LABORATORY | | + +-------+ + + + | % Basophils | 1.0 | 0.0 - 1.0 % | [facility] | | | | | | [facility] | | | | | | MEDICAL | | | | | | CENTER - | | | | | | LABORATORY | | + +-------+ + + + | Absolute | 5.40 | 1.80 - 8.50 | [facility] | | | Neutrophils | | K/uL | [facility] | | | | | | MEDICAL | | | | | | CENTER - | | | | | | LABORATORY | | + +-------+ + + + | Absolute | 2.10 | 0.60 - 3.20 | [facility] | | | Lymphocytes | | K/uL | [facility] | | | | | | MEDICAL | | | | | | CENTER - | | | | | | LABORATORY | | + +-------+ + + + | Absolute | 0.80 | 0.00 - 1.00 | [facility] | | | Monocytes | | K/uL | [facility] | | | | | | MEDICAL | | | | | | CENTER - | | | | | | LABORATORY | | + +-------+ + + + | Absolute | 0.20 | 0.00 - 0.40 | [facility] | | | Eosinophils | | K/uL | [facility] | | | | | | MEDICAL | | | | | | CENTER - | | | | | | LABORATORY | | + +-------+ + + + | Absolute | 0.10 | 0.00 - 0.10 | [facility] | | | Basophils | | K/uL | [facility] | | | | | | MEDICAL | | | | | | CENTER - | | | | | | LABORATORY | | + +-------+ + + + + + | Specimen | + + | Blood | + + + + + + + | Performing | Address | City/State/Zipcode | Phone Number | | Organization | | | | + + + + + | [facility] | [address] | [place], [place] | [phone] | | [facility] | | [address] | | | - LABORATORY | | | | + + + + + POCT Test, Urine, QUAL (03/27/2016 9:43 PM PDT) + + + + + + | Component | Value | Ref Range | Performed | Pathologist | | | | | At | Signature | + + + + + + | | Negative | Negative | | | | Test, | | | | | | Urine, POC | | | | | + + + + + + | Internal QC | Acceptable | | | | + + + + + + | Specific | | 1.010, 1.015, | | | | [place], | | 1.020, 1.025 | | | | POC | | | | | + + + + + + | Lot Number | [id number] | | | | + + + + + + | Expiration | 2017-8 | | | | | Date | | | | | + + + + + + + + | Specimen | + + | Urine specimen | | (specimen) | + + Culture, Urine (03/27/2016 9:38 PM PDT) + + + + + + | Component | Value | Ref Range | Performed | Pathologist | | | | | At | Signature | + + + + + + | Culture | >100,000 CFU/ml | | [facility] | | | | Staphylococcus | | [facility] | | | | saprophyticusComment: | | MEDICAL | | | | Per CLSI guidelines: | | CENTER - | | | | Routine testing of urine | | LABORATORY | | | | isolates of S. | | | | | | Saprophyticus is not | | | | | | advised because | | | | | | infections respond to | | | | | | concentrations achieved | | | | | | in urine of | | | | | | antimicrobial agents | | | | | | commonly used to treat | | | | | | acute, uncomplicated | | | | | | urinary tract infections | | | | | | (eg, nitrofurantoin, | | | | | | trimethoprim/sulfamethox | | | | | | azole or a | | | | | | fluoroquinolone). | | | | + + + + + + + + | Specimen | + + | Urine - Urine | | specimen obtained by | | clean catch | | procedure (specimen) | + + + + + + + | Performing | Address | City/State/Zipcode | Phone Number | | Organization | | | | + + + + + | [facility] | [address] | [place] | [phone] | | [facility] | | [address] | | | - LABORATORY | | | | + + + + + Urinalysis with Microscopic with Culture if Indicated (03/27/2016 9:38 PM PDT) + + + + + + | Component | Value | Ref Range | Performed | Pathologist | | | | | At | Signature | + + + + + + | Color, | Yellow | Light Yellow, | [facility] | | | Urine | | Yellow, Straw | [facility] | | | | | | MEDICAL | | | | | | CENTER - | | | | | | LABORATORY | | + + + + + + | Clarity | Cloudy | | [facility] | | | | | | [facility] | | | | | | MEDICAL | | | | | | CENTER - | | | | | | LABORATORY | | + + + + + + | pH, Urine | 5.0 | 5.0 - 8.0 | [facility] | | | | | | [facility] | | | | | | MEDICAL | | | | | | CENTER - | | | | | | LABORATORY | | + + + + + + | Specific | 1.026 | 1.001 - 1.030 | [facility] | | | [place] | | | [facility] | | | | | | MEDICAL | | | | | | CENTER - | | | | | | LABORATORY | | + + + + + + | Protein, | 30 mg/dL (A) | Negative | [facility] | | | Urine | | | [facility] | | | | | | MEDICAL | | | | | | CENTER - | | | | | | LABORATORY | | + + + + + + | Blood, | Negative | Negative | [facility] | | | Urine | | | [facility] | | | | | | MEDICAL | | | | | | CENTER - | | | | | | LABORATORY | | + + + + + + | Glucose, | Negative | Negative | [facility] | | | Urine | | | [facility] | | | | | | MEDICAL | | | | | | CENTER - | | | | | | LABORATORY | | + + + + + + | Ketones, | 20 mg/dL (A) | Negative | [facility] | | | Urine | | | [facility] | | | | | | MEDICAL | | | | | | CENTER - | | | | | | LABORATORY | | + + + + + + | Bilirubin, | Negative | Negative | [facility] | | | Urine | | | [facility] | | | | | | MEDICAL | | | | | | CENTER - | | | | | | LABORATORY | | + + + + + + | Nitrite, | Negative | Negative | [facility] | | | Urine | | | [facility] | | | | | | MEDICAL | | | | | | CENTER - | | | | | | LABORATORY | | + + + + + + | Leukocyte | Moderate (A) | Negative | [facility] | | | Esterase, | | | [facility] | | | Urine | | | MEDICAL | | | | | | CENTER - | | | | | | LABORATORY | | + + + + + + | Urobilinoge | Negative | 0.2 mg/dL, 1.0 | [facility] | | | n, Urine | | mg/dL, Negative | [facility] | | | | | | MEDICAL | | | | | | CENTER - | | | | | | LABORATORY | | + + + + + + | WBC UA | 25-50 (A) | 0 - 2 /HPF | [facility] | | | | | | [facility] | | | | | | MEDICAL | | | | | | CENTER - | | | | | | LABORATORY | | + + + + + + | RBC UA | 10-15 (A) | 0 - 2 /HPF | [facility] | | | | | | [facility] | | | | | | MEDICAL | | | | | | CENTER - | | | | | | LABORATORY | | + + + + + + | SQUAMOUS | >100 (A) | 0 - 2 /LPF | [facility] | | | EPITHELIAL | | | [facility] | | | UA | | | MEDICAL | | | | | | CENTER - | | | | | | LABORATORY | | + + + + + + | BACTERIA UA | 1+ (A) | Negative /HPF | [facility] | | | | | | [facility] | | | | | | MEDICAL | | | | | | CENTER - | | | | | | LABORATORY | | + + + + + + | MUCUS UA | Present (A) | Negative /LPF | [facility] | | | | | | [facility] | | | | | | MEDICAL | | | | | | CENTER - | | | | | | LABORATORY | | + + + + + + | URINE | Urine Culture Set Up | | [facility] | | | COMMENT | | | [facility] | | | | | | MEDICAL | | | | | | CENTER - | | | | | | LABORATORY | | + + + + + + + + | Specimen | + + | Urine - Urine | | specimen obtained by | | clean catch | | procedure (specimen) | + + + + + + + | Performing | Address | City/State/Zipcode | Phone Number | | Organization | | | | + + + + + | [facility] | [address] | [place] | [phone] | | [facility] | | [address] | | | - LABORATORY | | | | + + + + + documented in this encounter Visit Diagnoses + + | Diagnosis | + + | Acute cystitis without hematuria - Primary Acute cystitis | + + documented in this encounter Administered Medications + +---------+ +------+-------+------+ | Medication Order | MAR | Action | Dose | Rate | Site | | | Action | Date | | | | + +---------+ +------+-------+------+ | cefTRIAXone (ROCEPHIN) 2 g in | New Bag | 03/27/20 | 2 g | 100 | | | sodium chloride 0.9% 50 mL IVPB | | 16 10:26 | | mL/hr | | | 2 g, Intravenous, Administer over | | PM PDT | | | | | 30 Minutes, ONCE, Krissy 03/27/16 at | | | | | | | 2220, For 1 dose, Activate | | | | | | | system and mix before use., | | | | | | | Indications: Urinary Tract | | | | | | | Infection | | | | | | + +---------+ +------+-------+------+ +---+---+ | | | +---+---+ + + + +------+---+---+ | ondansetron (ZOFRAN ODT) | Dispense | 03/27/20 | 4 mg | | | | disintegrating tablet (ED | to Home | 16 11:49 | | | | | homepack) 4 mg 4 mg, Oral, ONCE, | | PM PDT | | | | | Krissy 03/27/16 at 2220, For 1 dose, | | | | | | | Dissolve on tongue or swallow 1 | | | | | | | or 2 tablets every 8 hours prn | | | | | | | nausea or vomiting Dispense for | | | | | | | home use., | | | | | | + + + +------+---+---+ +---+---+ | | | +---+---+ + +-------+ +------+---+---+ | ondansetron (ZOFRAN) injection | Given | 03/27/20 | 8 mg | | | | 8 mg 8 mg, Intravenous, ONCE, | | 16 10:00 | | | | | Krissy 03/27/16 at 2140, For 1 dose | | PM PDT | | | | + +-------+ +------+---+---+ +---+---+ | | | +---+---+ + +---------+ +--------+-------+---+ | sodium chloride 0.9% (NS) bolus | New Bag | 03/27/20 | 1,000 | 4000 | | | 1,000 mL 1,000 mL, Intravenous, | | 16 10:00 | mLs | mL/hr | | | Administer over 15 Minutes, | | PM PDT | | | | | ONCE, Krissy 03/27/16 at 2140, For 1 | | | | | | | dose | | | | | | + +---------+ +--------+-------+---+ +---+---+ | | | +---+---+ documented in this encounter
--- OUTSIDE RECORDS SUMMARY | ~2019-12-09 | XMS | Encounter Summary ---
Demographics + + + | Address | [address] | | | [place] [address] | + + + | Home Phone | | + + + | Preferred Language | Unknown | + + + | Marital Status | Single | + + + | Judaism Affiliation | Unknown | + + + | Race | Unknown | + + + | Ethnic Group | Unknown | + + + Author + + + | Author | [facility] | | | and [place] | + + + | Organization | [facility] | | | and [place] | + + + | Address | Unknown | + + + | Phone | Unavailable | + + + Support + + + + + | Name | Relationship | Address | Phone | + + + + + | Vanesa Shukla | ECON | [place] | | | | | [address] | | + + + + + | Vanesa Shukla | ECON | [place] | | | | | [address] | | + + + + + Care Team Providers + +------+ + | [facility] Name | Role | Phone | + +------+ + PCP | Unavailable | + +------+ + Encounter Details +--------+ + + + + | Date | Type | Department | Care Team | Description | +--------+ + + + + | 08/04/ | Hospital | [facility] | | | | 1996 | Encounter | MED CTR XRAY [address] | | | | | | [place] | | | | | | [place] [address] | | | | | | [phone] | | | +--------+ + + + [...]
--- OUTSIDE RECORDS SUMMARY | ~2019-12-09 | XMS | Encounter Summary ---
Demographics + + + | Address | [address] | | | [place] [address] | + + + | Home Phone | | + + + | Preferred Language | Unknown | + + + | Marital Status | Single | + + + | Buddhism Affiliation | Unknown | + + + | Race | Unknown | + + + | Ethnic Group | Unknown | + + + Author + + + | Author | [facility] | | | and [place] | + + + | Organization | [facility] | | | and [place] | + + + | Address | Unknown | + + + | Phone | Unavailable | + + + Support + + + + + | Name | Relationship | Address | Phone | + + + + + | Vanesa Shukla | ECON | [place] | | | | | [phone] | | + + + + + | Vanesa Shukla | ECON | [place] | | | | | [address] | | + + + + + Care Team Providers + +------+ + | Care Laundry Helper Name | Role | Phone | + +------+ + PCP | Unavailable | + +------+ + Encounter Details +--------+ + + + + | Date | Type | Department | Care Team | Description | +--------+ + + + + | 08/22/ | Hospital | [facility] | Layo Medina W, | | | 2007 - | Encounter | MED CTR MED ONC | [address] | | | | | [address] [place] | [place], [place] | | | 08/24/ | | [place] [address] | [address] | | | 2007 | | [phone] | [phone] | | | | | | | | | | | | Yamilex Castellanos MD | | | | | | [address] | | | | | | [place], [place] | | | | | | [address] | | | | | | | | +--------+ + + + [...]
--- OUTSIDE RECORDS SUMMARY | ~2019-12-09 | XMS | Encounter Summary ---
Demographics + + + | Address | [address] | | | [place] [address] | + + + | Home Phone | | + + + | Preferred Language | Unknown | + + + | Marital Status | Single | + + + | Hoahaoism Affiliation | Unknown | + + + | Race | Unknown | + + + | Ethnic Group | Unknown | + + + Author + + + | Author | [facility] | | | and [place] | + + + | Organization | [facility] [place] | | | and [place] | + + + | Address | Unknown | + + + | Phone | Unavailable | + + + Support + + + + + | Name | Relationship | Address | Phone | + + + + + | Vanesa Shukla | ECON | [place] | | | | | [phone] | | + + + + + | Vanesa Shukla | ECON | [place] | | | | | [address] | | + + + + + Care Team Providers + +------+ + | Care Internal Controls Specialist Name | Role | Phone | + +------+ + PCP | Unavailable | + +------+ + Encounter Details +--------+ + + + + | Date | Type | Department | Care Team | Description | +--------+ + + + + | 04/23/ | Hospital | [facility] | | | | 2010 | Encounter | MED CTR XRAY [address] | | | | | [address] [place] | | | | | | [place] [address] | | | | | | [phone] | | | +--------+ + + + [...] | + +--------+ + + + | ECHO COMPLETE | | 04/23/2011 | | Results for this | | | | 2:45 PM | | procedure are in the | | | | PDT | | results section. | + +--------+ + + + documented in this encounter Results ECHO Complete (04/23/2011 2:45 PM PDT) + + | Specimen | + + | | + + + + + | Narrative | Performed At | + + + | [facility] | [place] | | [address] [place] | [facility] | | E C H O C A R D | DIAG IMG | | I O G R A P H Y R E P O R T HEIGHT: 61" | | | WEIGHT: 217# REINFORCER: SMZ REFERRING DR: HELDER | | | READING DR: CHADD DIAGNOSIS: TIA'S, MIGRAINES, PT IS | | | | | | | | | M E A S U R E M E N T S | | | Aortic Root: 26 mm LV Diameter-diastole: | | | 43 mm Aortic Cusp Sep: 16 mm LV | | | Diameter--systole: 30 mm LA: 43 mm | | | Fractional Shortenin % IVS--diastole: | | | 8 mm PFV Aortic Valve: IVS--systole: | | | 12 mm MPG Mitral Valve: mmHg | | | LVPW--diastole: 9 mm PFV TR Jet: | | | 2.14 m/s LVPW--systole: 15 mm RA/RV PPG: | | | 18 mmHg | | | | | | ECHOCARDIOGRAM REPORT, 04/23/2011 CLINICAL HISTORY: TIAs. | | | REFERRING PHYSICIAN: Thai Bonner MD TECHNICAL DATA: | | | This is a complete transthoracic echocardiogram including 2-D / | | | M-mode / Doppler / color-flow Doppler analysis. In addition, | | | agitated saline contrast was used to assess for intracardiac shunt. | | | HEMODYNAMICS: The patient was in underlying sinus rhythm with a | | | ventricular rate in the 90s.. RESULTS: CHAMBERS: The left | | | ventricle is of normal end diastolic and end systolic dimensions | | | with normal wall thickness and regional wall motion. LVEF was | | | calculated at 65%. Bilateral atria are of normal size. The right | | | ventricle is of normal size and systolic function. VALVES: | | | Aortic valve is a normal trileaflet valve with good opening. There | | | is no stenosis or insufficiency noted. Mitral valve is normal | | | without any thickening or prolapse. No significant regurgitation | | | is seen. Tricuspid valve is normal with mild regurgitation and a | | | peak velocity of 2.1 meters per second consistent with normal | | | right-sided pressures. Pulmonic valve is normal without any | | | insufficiency. MISCELLANEOUS: Pericardium is normal without | | | an epicardial effusion. Injection of agitated saline contrast does | | | not reveal the presence of intracardiac shunt. DIASTOLOGY: | | | Mitral inflow diastolic parameters are within normal limits. | | | IMPRESSION: 1. NORMAL LEFT VENTRICULAR SIZE AND SYSTOLIC FUNCTION | | | WITH LVEF OF 65%. 2. MILD TRICUSPID REGURGITATION AND NORMAL | | | RIGHT-SIDED PRESSURES. 3. NORMAL LEFT VENTRICULAR DIASTOLIC | | | PARAMETERS. 4. NO EVIDENCE OF INTRACARDIAC SHUNTING | | | ASSESSED BY CONTRAST BUBBLE STUDY. Dictated Date/Time: | | | 04/24/2011 09:37 Transcribed Date/Time: 04/24/2011 12:12 | | | Retail Service Technician: <Electronically Signed by Brandon Soriano, | | | MD> 04/24/11 1541 | | + + + + + | Procedure Note | + + | James Godfrey Conversion - 01/06/2014 3:01 PM [facility] | | Diagnostic Imaging Department | | [address] [facility] | | | | | | | | E C H O C A R D I O G R A P H Y R E P O R T | | | | | | HEIGHT: 61" WEIGHT: 217# REINFORCER: YULIYA | | REFERRING DR: HELDER GONZALEZ DR: CHADD | | | | DIAGNOSIS: TIA'S, MIGRAINES, PT IS | | | | | | M E A S U R E M E N T S | | | | Aortic Root: 26 mm LV Diameter-diastole: 43 mm | | Aortic Cusp Sep: 16 mm LV Diameter--systole: 30 mm | | LA: 43 mm Fractional Shortenin % | | IVS--diastole: 8 mm PFV Aortic Valve: | | IVS--systole: 12 mm MPG Mitral Valve: mmHg | | LVPW--diastole: 9 mm PFV TR Jet: 2.14 m/s | | LVPW--systole: 15 mm RA/RV PP mmHg | | | | | | | | ECHOCARDIOGRAM REPORT, 04/23/2011 | | | | CLINICAL HISTORY: TIAs. | | | | REFERRING PHYSICIAN: Thai Bonner MD | | | | TECHNICAL DATA: This is a complete transthoracic echocardiogram including 2-D | | / M-mode / Doppler / color-flow Doppler analysis. In addition, agitated saline | | contrast was used to assess for intracardiac shunt. | | | | HEMODYNAMICS: The patient was in underlying sinus rhythm with a ventricular | | rate in the 90s.. | | | | RESULTS: | | | | CHAMBERS: The left ventricle is of normal end diastolic and end systolic | | dimensions with normal wall thickness and regional wall motion. LVEF was | | calculated at 65%. Bilateral atria are of normal size. The right ventricle is | | of normal size and systolic function. | | | | VALVES: Aortic valve is a normal trileaflet valve with good opening. There is | | no stenosis or insufficiency noted. Mitral valve is normal without any | | thickening or prolapse. No significant regurgitation is seen. Tricuspid valve | | is normal with mild regurgitation and a peak velocity of 2.1 meters per second | | consistent with normal right-sided pressures. Pulmonic valve is normal without | | any insufficiency. | | | | MISCELLANEOUS: Pericardium is normal without an epicardial effusion. | | Injection of agitated saline contrast does not reveal the presence of | | intracardiac shunt. | | | | DIASTOLOGY: Mitral inflow diastolic parameters are within normal limits. | | | | IMPRESSION: | | 1. NORMAL LEFT VENTRICULAR SIZE AND SYSTOLIC FUNCTION WITH LVEF OF 65%. | | | | 2. MILD TRICUSPID REGURGITATION AND NORMAL RIGHT-SIDED PRESSURES. | | | | 3. NORMAL LEFT VENTRICULAR DIASTOLIC PARAMETERS. | | | | 4. NO EVIDENCE OF INTRACARDIAC SHUNTING ASSESSED BY CONTRAST BUBBLE STUDY. | | | | Dictated Date/Time: 04/24/2011 09:37 | | Transcribed Date/Time: 04/24/2011 12:12 | | Retail Service Technician: | | <Electronically Signed by Brandon Soriano MD> 04/24/11 1548 | + + + +---------+ + + | Performing | Address | City/State/Zipcode | Phone Number | | Organization | | | | + +---------+ + + | [place] | | | | | [facility] | | | | + +---------+ + + documented in this encounter Visit Diagnoses Not on filedocumented in this encounter
--- OUTSIDE RECORDS SUMMARY | ~2019-12-09 | XMS | Encounter Summary ---
Demographics + + + | Address | [address] | | | [place] [address] | + + + | Home Phone | | + + + | Preferred Language | Unknown | + + + | Marital Status | Single | + + + | Hindu Affiliation | Unknown | + + + | Race | Unknown | + + + | Ethnic Group | Unknown | + + + Author + + + | Author | [facility] [place] | | | and [place] | + + + | Organization | [facility] [place] | | | and [place] | + + + | Address | Unknown | + + + | Phone | Unavailable | + + + Support + + + + + | Name | Relationship | Address | Phone | + + + + + | Vanesa Shukla | ECON | [place] | | | | | [phone] | | + + + + + | Vanesa Shukla | ECON | [place] | | | | | [address] | | + + + + + Care Team Providers + +------+ + | Care Scale Shooter Name | Role | Phone | + +------+ + PCP | Unavailable | + +------+ + Encounter Details +--------+ + + + + | Date | Type | Department | Care Team | Description | +--------+ + + + + | 10/30/ | Hospital | [facility] | | | | 2008 | Encounter | MED CTR [facility] | | | | | | [facility] [address] | | | | | | [place], | | | | | | [place] [address] | | | | | | [phone] | | | +--------+ + + + [...]
--- OUTSIDE RECORDS SUMMARY | ~2019-12-09 | XMS | Encounter Summary ---
Demographics + + + | Address | [address] | | | [place] [address] | + + + | Home Phone | | + + + | Preferred Language | Unknown | + + + | Marital Status | Single | + + + | Jew Affiliation | Unknown | + + + | Race | Unknown | + + + | Ethnic Group | Unknown | + + + Author + + + | Author | [facility] | | | and [place] | + + + | Organization | [facility] | | | and [place] | + + + | Address | Unknown | + + + | Phone | Unavailable | + + + Support + + + + + | Name | Relationship | Address | Phone | + + + + + | Vanesa Shukla | ECON | [place] | | | | | [address] | | + + + + + | Vanesa Shukla | ECON | [place] | | | | | [address] | | + + + + + Care Team Providers + +------+ + | Care Passenger Service Agent Name | Role | Phone | + +------+ + PCP | Unavailable | + +------+ + Encounter Details +--------+ + + + + | Date | Type | Department | Care Team | Description | +--------+ + + + + | 03/12/ | Hospital | [facility] | | | | 2006 | Encounter | MED CTR EMERGENCY | | | | | | CENTER [address] | | | | | | [place] | | | | | | [address] | | | | | | [phone] | | | +--------+ + + + [...]
--- OUTSIDE RECORDS SUMMARY | ~2019-12-09 | XMS | Encounter Summary ---
Demographics + + + | Address | [address] | | | [place] [address] | + + + | Home Phone | | + + + | Preferred Language | Unknown | + + + | Marital Status | Single | + + + | Religion Affiliation | Unknown | + + + | Race | Unknown | + + + | Ethnic Group | Unknown | + + + Author + + + | Author | [facility] [place] | | | and [place] | + + + | Organization | [facility] [place] | | | and [place] | + + + | Address | Unknown | + + + | Phone | Unavailable | + + + Support + + + + + | Name | Relationship | Address | Phone | + + + + + | Vanesa Shukla | ECON | [place] | | | | | [address] | | + + + + + | Vanesa Shukla | ECON | [place] | | | | | [address] | | + + + + + Care Team Providers + +------+ + | Care Rubber Curer Name | Role | Phone | + +------+ + PCP | Unavailable | + +------+ + Encounter Details +--------+ + + + + | Date | Type | Department | Care Team | Description | +--------+ + + + + | 12/21/ | Hospital | [facility] | Alfonso Blake MD | | | 2008 | Encounter | MED CTR XRAY [address] | | | | | [place] | [place], [place] | | | | | [place] [address] | [address] | | | | | [phone] | | | +--------+ + + + [...]
--- OUTSIDE RECORDS SUMMARY | ~2019-12-09 | XMS | Encounter Summary ---
Demographics + + + | Address | [address] | | | [place] [address] | + + + | Home Phone | | + + + | Preferred Language | Unknown | + + + | Marital Status | Single | + + + | Yarsani Affiliation | Unknown | + + + | Race | Unknown | + + + | Ethnic Group | Unknown | + + + Author + + + | Author | [facility] [place] | | | and [place] | + + + | Organization | [facility] [place] | | | and [place] | + + + | Address | Unknown | + + + | Phone | Unavailable | + + + Support + + + + + | Name | Relationship | Address | Phone | + + + + + | Vanesa Shukla | ECON | [place] | | | | | [address] | | + + + + + | Vanesa Shukla | ECON | [place] | | | | | [address] | | + + + + + Care Team Providers + +------+ + | Care Junior Software Engineer Name | Role | Phone | [...] Lab Results | | 2019 | | [facility] | INTERVENTION MANAGER [address] [place] [address] | | | | | [facility] [address] | [facility] [place] [address] | | | | | [address] [facility], | [phone] | | | | | [place] [address] | | | | | | [phone] | | | +--------+ + + + [...]
--- OUTSIDE RECORDS SUMMARY | ~2019-12-09 | XMS | Encounter Summary ---
Demographics + + + | Address | [address] | | | [place] [address] | + + + | Home Phone | | + + + | Preferred Language | Unknown | + + + | Marital Status | Single | + + + | Shinto Affiliation | Unknown | + + + | Race | Unknown | + + + | Ethnic Group | Unknown | + + + Author + + + | Author | [facility] | | | and [place] | + + + | Organization | [facility] | | | and [place] | + + + | Address | Unknown | + + + | Phone | Unavailable | + + + Support + + + + + | Name | Relationship | Address | Phone | + + + + + | Vanesa Shukla | ECON | [place] | | | | | [address] | | + + + + + | Vanesa Shukla | ECON | [place] | | | | | [address] | | + + + + + Care Team Providers + +------+ + | Care Lumber Racker Name | Role | Phone | + +------+ + | No, Physician | PCP | Unavailable | + +------+ + Reason for Visit + + + | Reason | Comments | + + + | Psychiatric | | | Evaluation | | + + + Encounter Details +--------+ + + + + | Date | Type | Department | Care Team | Description | +--------+ + + + + | 10/18/ | Emergency | [facility] | John Hicks | Psychosis, | | 2017 | | [facility] | DO [place] [address] | unspecified | | | | [place] [address] | [facility] | psychosis type (HCC) | | | | [place], [place] | [place] [address] | (Primary Dx) | | | | [address] | [phone] | | | | | [phone] | | | +--------+ + + + [...] + + + | Blood Pressure | 140/100 | 10/18/2018 11:54 AM | | | | | PST | | + + + + + | Pulse | 109 | 10/18/2018 11:54 AM | | | | | PST | | + + + + + | Temperature | 36.7 C (98 F) | 10/18/2018 11:54 AM | | | | | PST | | + + + + + | Respiratory Rate | 20 | 10/18/2018 11:54 AM | | | | | PST | | + + + + + | Oxygen Saturation | - | - | | + + + + + | Inhaled Oxygen | - | - | | | Concentration | | | | + + + + + | Weight | - | - | | + + + + + | Height | - | - | | + + + + + | Body Mass Index | - | - | | + + + + + documented in this encounter Discharge Instructions AttachmentsThe following attachments cannot be sent through Care Everywhere.Psychosis (Engl kenyetta)documented in this encounter Medications at Time of [...] + + + +---------+ + + | LORazepam (ATIVAN) | Take 1 tablet by | 10 | 0 | 10/18/20 | 11/13/201 | | 1 mg tablet | mouth every 8 hours | tablet | | 18 | 9 | | | as needed for | | | | | | | Anxiety or | | | | | | | Withdrawal Symptoms. | | | | | + + + +---------+ + + documented as of this encounter Plan of Treatment + +------+--------+ + + | Name | Type | Priori | Associated Diagnoses | Date/Time | | | | ty | | | + +------+--------+ + + | ED INFORMATION | GABBY | Routin | | 10/18/2018 10:29 AM | | EXCHANGE | | e | | PST | + +------+--------+ + + documented as of this encounter Procedures + +--------+ + + + | Procedure Name | Priori | Date/Time | Associated Diagnosis | Comments | | | ty | | | | + +--------+ + + + | HCG, URINE, QUAL | STAT | 10/18/2018 | | Results for this | | | | 12:52 PM | | procedure are in the | | | | PST | | results section. | + +--------+ + + + | DRUGS OF ABUSE, | STAT | 10/18/2018 | | Results for this | | SCREEN, URINE | | 12:52 PM | | procedure are in the | | | | PST | | results section. | + +--------+ + + + | URINALYSIS WITH | STAT | 10/18/2018 | | Results for this | | MICROSCOPIC | | 12:52 PM | | procedure are in the | | | | PST | | results section. | + +--------+ + + + | ECG 12 LEAD | STAT | 10/18/2018 | | Results for this | | | | 12:21 PM | | procedure are in the | | | | PST | | results section. | + +--------+ + + + | ED INFORMATION | Routin | 10/18/2018 | | | | EXCHANGE | e | 10:29 AM | | | | | | PST | | | + +--------+ + + + +---+--------+ | | | | | Proced | | | ure | | | Note - | | | Mikey, | | | Lab In | | | | | | Hlseve | | | n - | | | | | | 2017 | | | 10:30 | | | AM PST | | | | | | Format | | | ting | | | of | | | this | | | note | | | might | | | be | | | differ | | | ent | | | from | | | the | | | origin | | | al.MIKEY | | | E?NOTI | | | FICATI | | | ON? | | | | | | 8 | | | 10:26? | | | TAMI, | | | HUGH | | | | | | E?MRN: | | | | | | [id number] | | | [id number] | | | his | | | patien | | | t has | | | regist | | | ered | | | at the | | | | | | Provid | | | ence | | | [facility] | | | [facility] | [facility] | | | l | | | Center | | | | | | Emerge | | | ncy | | | Depart | | | ment | | | For | | | more | | | inform | | | ation | | | visit: | | | | | | https: | | | //secu | | | [email or web address] | | | ecarep | | | [email or web address] | | | m/shireen | | | ent/33 | | | [id number] | | | [phone] | | | [id number] | | | [id number] | | | [id number] | | | [id number] | | | Securi | | | ty | | | Events | | | No | | | recent | | | | | | Securi | | | ty | | | Events | | | | | | curren | | | tly on | | | | | | fileED | | | Care | | | Guidel | | | britt | | | from | | | St. | | | [facility] | | | sen | | | Medica | | | l | | | Center | | | -[place] | | | ioLast | | | | | | Update | | | d: | | | 12/27/ | | | 17 | | | 10:57 | | | AM | | | Care | | | Recomm | | | endati | | | on:Hea | | | lth | | | Resour | | | ce | | | Center | | | : | | | Please | | | | | | review | | | Case | | | manage | | | ment | | | docume | | | ntatio | | | n in | | | EMR.Pr | | | esenti | | | ng | | | Proble | | | m:Pt | | | has | | | had 10 | | | ED | | | visits | | | | | | within | | | | | | multip | | | le | | | health | | | | | | system | | | s in | | | 12 | | | months | | | .Mult. | | | | | | Compla | | | intsUT | | | I/Cerv | | | ical | | | Infect | | | ionBum | | | ps on | | | armRas | | | h all | | | overAn | | | xiety | | | Disord | | | erHypo | | | kalemi | | | aHeada | | | cheAbd | | | ominal | | | | | | PainAn | | | xiety | | | Disord | | | erAnxi | | | ety | | | Disord | | | erPrim | | | amelia | | | Provid | | | ers:Un | | | sure | | | if | | | patien | | | t has | | | PCP in | | | | | | hometo | | | wn of | | | Pendle | | | tonBar | | | riers | | | to | | | connec | | | tion | | | to | | | outpat | | | ient | | | care:R | | | ecent | | | reloca | | | tion | | | to | | | [place] | | | [place] | | | for 90 | | | | | | reside | | | ntial | | | treatm | | | ent | | | progra | | | m, | | | will | | | need | | | to | | | establ | | | kenyetta | | | PCP | | | care | | | Streng | | | ths | | | and | | | Suppor | | | ts:Pt | | | has | | | insura | | | nce | | | Safety | | | | | | Concer | | | ns:His | | | tory | | | of | | | substa | | | nce | | | abuse | | | and | | | anxiet | | | yPlan | | | when | | | in the | | | | | | ED:Pro | | | vide | | | approp | | | riate | | | but | | | direct | | | ed | | | workup | | | and | | | dispos | | | itionP | | | rovide | | | | | | educat | | | ion on | | | | | | approp | | | riate | | | use of | | | the | | | ED and | | | | | | altern | | | atives | | | to | | | addres | | | s | | | non-em | | | ergent | | | | | | issues | | | such | | | as | | | urgent | | | care | | | clinic | | | s and | | | walk | | | in | | | clinic | | | sEncou | | | rage | | | follow | | | up | | | and | | | connec | | | tion | | | with | | | outpat | | | ient | | | provid | | | ersThe | | | se are | | | | | | guidel | | | britt | | | and | | | the | | | provid | | | er | | | should | | | | | | exerci | | | se | | | clinic | | | al | | | judgme | | | nt | | | when | | | provid | | | ing | | | care.R | | | ecent | | | Emerge | | | ncy | | | Depart | | | ment | | | Visit | | | Summar | | | yAdmit | | | Date | | | Facili | | | ty | | | City | | | State | | | Type | | | Major | | | Type | | | Diagno | | | ses or | | | Chief | | | | | | Compla | | | int | | | Nov | | | 19, | | | 2018 | | | Provid | | | ence | | | [facility] | | [facility] | | [place] | | | [place] | | | Emerge | | | ncy | | | Emerge | | | ncy | | | | | | Medica | | | l | | | Evalua | | | tion | | | Oct | | | 23, | | | 2018 | | | St[facility] | | | [facility] | | | sen | | | [facility] | | | [place] | | | | | | [place] | [place] | | | Emerge | | | ncy | | | Emerge | | | ncy | | | 0. | | | WHEEZI | | | NG | | | SHORT | | | OF | | | BREATH | | | Oct | | | 19, | | | 2018 | | | St[facility] | | | [facility] | | | sen | | | [facility] | | | [place] | | | | | | [place] | [place] | | | Emerge | | | ncy | | | Emerge | | | ncy | | | 0. | | | UNABLE | | | TO | | | URINAT | | | E | | | E.D. | | | Visit | | | Count | | | (12 | | | mo.)Fa | | | cility | | | | | | Visits | | | Low | | | Acuity | | | St. | | | [facility] | | | sen | | | Medica | | | l | | | Center | | | -[place] | | | io 4 0 | | | | | | Provid | | | ence | | | St[facility] | | | [facility] | | | Medica | | | l | | | Center | | | 1 0 | | | [facility] | [facility] | | | y | | | [facility] | | | al 4 0 | | | Total | | | 9 0 | | | Note: | | | Visits | | | | | | indica | | | te | | | total | | | known | | | visits | | | . | | | Medica | | | id Low | | | | | | Acuity | | | Dx | | | are | | | the | | | number | | | of | | | primar | | | y | | | diagno | | | ses on | | | the | | | Medica | | | id's | | | Low | | | Acuity | | | dx | | | list. | | | | | | Recent | | | | | | Inpati | | | ent | | | Visit | | | [facility]mar | | | yAdmit | | | Date | | | Facili | | | ty | | | City | | | State | | | Type | | | Major | | | Type | | | Diagno | | | ses or | | | Chief | | | | | | Compla | | | int | | | Oct | | | 23, | | | 2018 | | | St[facility] | | | [facility] | | | sen | | | [facility] | | | [place] | | | | | | [place] | | | Family | | | | | | Practi | | | ce | | | Inpati | | | ent | | | 0. | | | ACUTE | | | HYPOXI | | | C | | | RESPIR | | | ATORY | | | FAILRU | | | RE ALEXANDR | | | COMM | | | PNEUMO | | | PDMP | | | | | | Report | | | PDMP | | | query | | | found | | | no | | | report | | | .Care | | | Provid | | | ersPro | | | vider | | | PRC | | | Type | | | Phone | | | Fax | | | Servic | | | e | | | Dates | | | Hilty, | | | | | | Antoine | | | L | | | Primar | | | y Care | | | | | | (509) | | | [phone] | | | 51 | | | Curren | | | t | | | Alfonso | | | T Blake | | | Primar | | | y Care | | | | | | Curren | | | t | | | Care | | | Histor | | | yMedic | | | al/Geni | | | [email or web address] | | | /1/18 | | | 12:00 | | | AM | | | [facility] | | [facility] | | | al | | | Patien | | | t is | | | curren | | | tly | | | establ | | | ished | | | with | | | St | | | [facility] | | | y | | | Clinic | | | . If | | | patien | | | t is | | | seen | | | in the | | | ED | | | during | | | | | | busine | | | ss | | | hours. | | | | | | Please | | | | | | contac | | | t [facility] | | | at St | | | | | | [facility] | | | y | | | Clinic | | | .Care | | | Recomm | | | endati | | | on:Thi | | | s | | | patien | | | t has | | | had 5 | | | or | | | more | | | Emerge | | | ncy | | | Depart | | | ment | | | visits | | | in | | | the | | | last | | | 12 | | | months | | | .? | | | Patien | | | t | | | requir | | | es | | | educat | | | ion on | | | the | | | scope | | | and | | | purpos | | | e of | | | the ED | | | as an | | | acute | | | care | | | provid | | | er not | | | a | | | Primar | | | y Care | | | | | | Provid | | | er and | | | | | | should | | | not | | | be | | | utiliz | | | ed for | | | | | | chroni | | | c | | | condit | | | ions.? | | | These | | | are | | | guidel | | | britt | | | and | | | the | | | provid | | | er | | | should | | | | | | exerci | | | se | | | clinic | | | al | | | judgme | | | nt | | | when | | | provid | | | ing | | | care.C | | | riteri | | | a met | | | Care | | | Guidel | | | inesKn | | | own | | | Aliase | | | sNo | | | known | | | aliase | | | s. The | | | above | | | | | | inform | | | ation | | | is | | | provid | | | ed for | | | the | | | sole | | | purpos | | | e of | | | patien | | | t | | | treatm | | | ent. | | | Use of | | | this | | | inform | | | ation | | | beyond | | | the | | | terms | | | of | | | Data | | | Sharin | | | g | | | Memora | | | ndum | | | of | | | Unders | | | tandin | | | g and | | | Licens | | | e | | | Agreem | | | ent is | | | | | | prohib | | | ited. | | | In | | | certai | | | n | | | cases | | | not | | | all | | | visits | | | may | | | be | | | repres | | | ented. | | | | | | Consul | | | t the | | | aforem | | | ention | | | ed | | | facili | | | ties | | | for | | | additi | | | onal | | | inform | | | ation. | | | ? | | | 2018 | | | Collec | | | tive | | | Medica | | | l | | | [employer] | | | logies | | | , Inc[employer] | | | - | | | [place] | | | Mercado | | | City, | | | [place] - | | | info@c | | | ollect | | | ivemed | | | icalte | | | ch.com | | | | +---+--------+ documented in this encounter Results Urinalysis With Microscopic (10/18/2018 12:52 PM PST) + + + + + + | Component | Value | Ref Range | Performed | Pathologist | | | | | At | Signature | + + + + + + | Color, | Yellow | Light Yellow, | [facility] | | | Urine | | Yellow, Straw | [facility] | | | | | | [facility] | | | | | | C[facility] - | | | | | | LABORATORY | | + + + + + + | Clarity | Hazy (A) | Clear | [facility] | | | | | | [facility] | | | | | | [facility] | | | | | | C[facility] - | | | | | | LABORATORY | | + + + + + + | pH, Urine | 5.0 | 5.0 - 8.0 | [facility] | | | | | | [facility] | | | | | | [facility] | | | | | | C[facility] - | | | | | | LABORATORY | | + + + + + + | Specific | 1.014 | 1.001 - 1.030 | [facility] | | | [place] | | | [facility] | | | | | | MEDICAL | | | | | | CENTER - | | | | | | LABORATORY | | + + + + + + | Protein, | Negative | Negative | [facility] | | | Urine | | | [facility] | | | | | | MED[facility] | | | | | | CENTER - | | | | | | LABORATORY | | + + + + + + | Blood, | Negative | Negative | [facility] | | | Urine | | | [facility] | | | | | | MEDICAL | | | | | | CENTER - | | | | | | LABORATORY | | + + + + + + | Glucose, | Negative | Negative | [facility] | | | Urine | | | [facility] | | | | | | MEDICAL | | | | | | CENTER - | | | | | | LABORATORY | | + + + + + + | Ketones, | 20 mg/dL (A) | Negative | [facility] | | | Urine | | | [facility] | | | | | | MEDICAL | | | | | | CENTER - | | | | | | LABORATORY | | + + + + + + | Bilirubin, | Negative | Negative | [facility] | | | Urine | | | [facility] | | | | | | MEDICAL | | | | | | CENTER - | | | | | | LABORATORY | | + + + + + + | Nitrite, | Negative | Negative | [facility] | | | Urine | | | [facility] | | | | | | MEDICAL | | | | | | CENTER - | | | | | | LABORATORY | | + + + + + + | Leukocyte | Negative | Negative | [facility] | | | Esterase, | | | [facility] | | | Urine | | | MEDICAL | | | | | | CENTER - | | | | | | LABORATORY | | + + + + + + | Urobilinoge | Negative | 0.2 mg/dL, 1.0 | [facility] | | | n, Urine | | mg/dL, Negative | [facility] | | | | | | MEDICAL | | | | | | CENTER - | | | | | | LABORATORY | | + + + + + + | WBC UA | 2-5 (A) | 0 - 2 /HPF | [facility] | | | | | | [facility] | | | | | | MEDICAL | | | | | | CENTER - | | | | | | LABORATORY | | + + + + + + | RBC UA | 0-2 | 0 - 2 /HPF | [facility] | | | | | | [facility] | | | | | | MEDICAL | | | | | | CENTER - | | | | | | LABORATORY | | + + + + + + | SQUAMOUS | >100 (A) | 0 - 2 /LPF | [facility] | | | EPITHELIAL | | | [facility] | | | [facility] | | | MEDICAL | | | | | | CENTER - | | | | | | LABORATORY | | + + + + + + | BACTERIA UA | 1+ (A) | Negative /HPF | [facility] | | | | | | [facility] | | | | | | MEDICAL | | | | | | CENTER - | | | | | | LABORATORY | | + + + + + + | MUCUS UA | Present (A) | Negative /LPF | [facility] | | | | | | [facility] | | | | | | MEDICAL | | | | | | CENTER - | | | | | | LABORATORY | | + + + + + + | HYALINE | 0-2 | 0 - 2 /LPF | [facility] | | | [facility] | | | [facility] | | | | | | MEDICAL [...] + | [facility] | [address] | [place] | [phone] | | [facility] | | [address] | | | - LABORATORY | | | | + + + + + , Urine, Qual (10/18/2018 12:52 PM PST) + + + + + + | Component | Value | Ref Range | Performed | Pathologist | | | | | At | Signature | + + + + + + | HCG SCREEN, | Negative | Negative | [facility] | | | URINE | | | [facility] | | | | | | MEDICAL [...] | + + + + + | [facility] | [address] | [place], [place] | [phone] | | [facility] | | [address] | | | - LABORATORY | | | | + + + + + Drugs of Abuse, Screen, Urine (10/18/2018 12:52 PM PST) + + + + + + | Component | Value | Ref Range | Performed | Pathologist | | | | | At | Signature | + + + + + + | Amphetamine | Negative | Negative | [facility] | | | Screen, | | | [facility] | | | Urine | | | MEDICAL | | | | | | CENTER - | | | | | | LABORATORY | | + + + + + + | Barbiturate | Negative | Negative | [facility] | | | s Screen, | | | [facility] | | | Urine | | | MEDICAL | | | | | | CENTER - | | | | | | LABORATORY | | + + + + + + | Benzodiazep | Negative | Negative | [facility] | | | britt | | | [facility] | | | Screen, | | | MEDICAL | | | Urine | | | CENTER - | | | | | | LABORATORY | | + + + + + + | Cannabinoid | Positive (A) | Negative | [facility] | | | s Screen, | | | [facility] | | | Urine | | | MEDICAL | | | | | | CENTER - | | | | | | LABORATORY | | + + + + + + | Cocaine | Negative | Negative | [facility] | | | Screen, | | | [facility] | | | Urine | | | MEDICAL | | | | | | CENTER - | | | | | | LABORATORY | | + + + + + + | Methadone | Negative | Negative | [facility] | | | Screen, | | | [facility] | | | Urine | | | MEDICAL | | | | | | CENTER - | | | | | | LABORATORY | | + + + + + + | Opiates | Negative | Negative | [facility] | | | Screen, | | | [facility] | | | Urine | | | [...] | + + + + + | [facility] | [address] | [place] | [phone] | | [facility] | | [address] | | | - LABORATORY | | | | + + + + + ECG 12 lead (10/18/2018 12:21 PM PST) + + + + + + | Component | Value | Ref Range | Performed | Pathologist | | | | | At | Signature | + + + + + + | VENTRICULAR | 110 | BPM | [facility] | | | RATE EKG | | | | | + + + + + + | ATRIAL RATE | 110 | BPM | [facility] | | + + + + + + | P-R | 156 | ms | [facility] | | | INTERVAL | | | | | + + + + + + | QRS | 76 | ms | [facility] | | | DURATION | | | | | + + + + + + | Q-T | 334 | ms | [facility] | | | INTERVAL | | | | | + + + + + + | Q-T | 452 | ms | [facility] | | | INTERVAL | | | | | | (CORRECTED) | | | | | + + + + + + | P WAVE AXIS | 68 | degrees | [facility] | | + + + + + + | QRS AXIS | 43 | degrees | [facility] | | + + + + + + | T AXIS | 38 | degrees | [facility] | | + + + + + + | INTERPRETAT | Sinus | | [facility] | | | ION TEXT | tachycardiaOtherwise | | | | | | normal ECGNo previous | | | | | | ECGs availableConfirmed | | | | | | by CATALINO HARKINS MD | | | | | | ([id number]) on 10/19/2018 | | | | | | 6:27:01 AM | | | | + + + + + + + + | Specimen | + + | | + + + + + | Narrative | Performed At | + + + | | | + + + + +---------+ + + | Performing | Address | City/State/Zipcode | Phone Number | | Organization | | | | + +---------+ + + | [facility] | | | | + +---------+ + + documented in this encounter Visit Diagnoses + + | Diagnosis | + + | Psychosis, unspecified psychosis type (HCC) - Primary | + + documented in this encounter"
--- OUTSIDE RECORDS SUMMARY | ~2019-12-09 | XMS | Encounter Summary ---
Demographics + + + | Address | [address] | | | [place] [address] | + + + | Home Phone [...] [place] | | | | | [address] | | + + + + + | Vanesa Shukla | ECON | [place] | + | | | | [address] | | + + + + + Care Team Providers + +------+ + | Care Deputy Sheriff Name | Role | Phone | + +------+ + | No, Physician | PCP | Unavailable | + +------+ + Reason for Visit + + + | Reason | Comments | + + + | Altered Mental | | | Status | | + + + Encounter Details +--------+ + + + + | Date | Type | Department | Care Team | Description | +--------+ + + + + | 07/18/ | Emergency | [facility] | Hunter Herman, | Altered mental | | 2016 | | [facility] | [address] | status, unspecified | | | | [facility] [address] [facility] | [place], [place] | (Primary Dx); | | | | [place], [place] | [address] | Substance abuse; | | | | [address] | | Acute cystitis | | | | [phone] | | without hematuria | +--------+ + + + + Social [...] + + + | Blood Pressure | 124/85 | 07/18/2016 4:36 PM | | | | | PDT | | + + + + + | Pulse | 100 | 07/18/2016 4:36 PM | | | | | PDT | | + + + + + | Temperature | 37.1 C (98.7 F) | 07/18/2016 4:36 PM | | | | | PDT | | + + + + + | Respiratory Rate | 16 | 07/18/2016 4:36 PM | | | | | PDT | | + + + + + | Oxygen Saturation | 100% | 07/18/2016 4:36 PM | | | | | PDT | | + + + + + | Inhaled Oxygen | - | - | | | Concentration | | | | + + + + + | Weight | 77.6 kg (171 lb) | 07/18/2016 11:36 AM | | | | | PDT | | + + + + + | Height | 165.1 cm (5' 5") | 07/18/2016 11:36 AM | | | | | PDT | | + + + + + | Body Mass Index | 28.46 | 07/18/2016 11:36 AM | | | | | PDT | | + + + + + documented in this encounter Discharge Instructions Instructions Hunter Herman MD - 07/18/2016Avoid marijuana methamphetamine and other drug s. Follow up as advised by mental health provider. Starting about it for possible bladder infection that showed up in testing. Recheck in a week if not improving, sooner if worse. If your symptoms are not resolving as expected please return here or go to an emergency department as needed. We are committed to improving the emergency department experience for our patients, and alex boykin love to hear your feedback. If you receive a customer satisfaction survey either by mail or email, please fill it out and let us know how we are doing! We love to hear about any p ositive experiences, and we need to hear about any areas we can improve upon. We appreciate you taking the time to fill out this survey so we can continue to serve our community in th e best way possible. documented in this encounter Medications at Time of Discharge + + + +---------+ + + | Medication | Sig | Dispensed | Refills | Start | End Date | | | | | | Date | | + + + +---------+ + + | cephalexin | Take 1 capsule by | 14 | 0 | 07/18/20 | | | (KEFLEX) 500 mg | mouth 2 times daily | capsule | | 16 | 6 | | capsule | for 7 days. | | | | | + [...] + | URINALYSIS WITH | STAT | 07/18/2016 | | Results for this | | MICROSCOPIC WITH | | 1:39 PM | | procedure are in the | | CULTURE IF INDICATED | | PDT | | results section. | + +--------+ + + + | DRUGS OF ABUSE, | STAT | 07/18/2016 | | Results for this | | SCREEN, URINE | | 1:39 PM | | procedure are in the | | | | PDT | | results section. | + +--------+ + + + | CULTURE, URINE | Routin | 07/18/2016 | | Results for this | | | e | 1:39 PM | | procedure are in the | | | | PDT | | results section. | + +--------+ + + + | CBC W/AUTO | STAT | 07/18/2016 | | Results for this | | DIFFERENTIAL | | 12:41 PM | | procedure are in the | | | | PDT | | results section. | + +--------+ + + + | ALCOHOL | STAT | 07/18/2016 | | Results for this | | | | 12:41 PM | | procedure are in the | | | | PDT | | results section. | + +--------+ + + + | COMPREHENSIVE | STAT | 07/18/2016 | | Results for this | | METABOLIC PANEL | | 12:41 PM | | procedure are in the | | | | PDT | | results section. | + +--------+ + + + documented in this encounter Results Culture, Urine (07/18/2016 1:39 PM PDT) + + + + + + | Component | Value | Ref Range | Performed | Pathologist | | | | | At | Signature | + + + + + + | Culture | >100,000 CFU/ml | | [facility] | | | | Staphylococcus | | [facility] | | | | saprophyticusComment: | | [...] + + + + | Culture | 50,000-100,000 CFU/ml | | [facility] | | | | Mixed Gram Positive | | [facility] | | | | FloraComment: Suggests | | MEDICAL | | | | contamination with | | CENTER - | | | | urogenital or skin | | LABORATORY | | | | mercedes.No further work-up | | | | | | to follow. | | | | + + + + + + + + | Specimen | + + | Urine | + + + + + + + | Performing | Address | City/State/Zipcode | Phone Number | | Organization | | | | + + + + + | [facility] | [address] | [place] | [phone] | | [facility] | | [address] | | | - LABORATORY | | | | + + + + + Drugs of Abuse, Screen, Urine (07/18/2016 1:39 PM PDT) + + + + + + | Component | Value | Ref Range | Performed | Pathologist | | | | | At | Signature | + + + + + + | Amphetamine | Positive (A) | Negative | [facility] [...] | s Screen, | | | [facility] | [...] | | Screen, | | | [facility] | | | Urine | | | MEDICAL | | | | | | CENTER - | | | | | | LABORATORY | | + + + + + + | Methadone | Negative | Negative | [facility] | | | Screen, | | | [facility] | [...] | Specimen | + + | Urine | + + + + + + + | Performing | Address | City/State/Zipcode | Phone Number | | Organization | | | | + + + + + | [facility] | [address] | [place] | [phone] | | [facility] | | [address] | | | - LABORATORY | | | | + + + + + Urinalysis with Microscopic with Culture if Indicated (07/18/2016 1:39 PM PDT) + + + + + [...] + + + | Clarity | Cloudy (A) | Clear | [facility] | | | | | | [facility] | | | | | | MEDICAL | | | | | | CENTER - | | | | | | LABORATORY | | + + + + + + | pH, Urine | 6.0 | 5.0 - 8.0 | [facility] | | | | | | [facility] | | | | | | MEDICAL | | | | | | CENTER - | | | | | | LABORATORY | | + + + + + + | Specific | 1.011 | 1.001 - 1.030 | [facility] | | | [place] | | | [facility] | | [...] + + + + | Blood, | Moderate (A) | Negative | [facility] | | | Urine | | | [facility] | | | | | | MEDICAL | | | | | | CENTER - | | | | | | LABORATORY | | + + + + + + | Glucose, | 50 mg/dL (A) | Negative | [facility] | | | Urine | | | [facility] | | | | | | MEDICAL | | | | | | CENTER - | | | | | | LABORATORY | | + + + + + + | Ketones, | Negative | Negative | [facility] | [...] + + + + | Leukocyte | Large (A) | Negative | [facility] | | [...] + + + | WBC UA | 50-100 (A) | 0 - 2 /HPF | [facility] | | | | | | [facility] | | | | | | MEDICAL | | | | | | CENTER - | | | | | | LABORATORY | | + + + + + + | WBC CLUMPS | Few (A) | None Seen /HPF | [facility] | | | UA | | | [facility] | | | | | | MEDICAL | | | | | | CENTER - | | | | | | LABORATORY | | + + + + + + | RBC UA | 5-10 (A) | 0 - 2 /HPF | [...] | [facility] | | | [facility] | | | | | | MEDICAL | | | | | | CENTER - | | | | | | LABORATORY | | + + + + + + | URINE | Urine Culture Set Up | | [facility] | | | COMMENT | | | [facility] | | | | | | MEDICAL | | | | | | CENTER - | | | | | | LABORATORY | | + + + + + + + + | Specimen | + + | Urine | + + + + + + + | Performing | Address | City/State/Zipcode | Phone Number | | Organization | | | | + + + + + | [facility] | [address] | [place] | [phone] | | [facility] | | [address] | | | - LABORATORY | | | | + + + + + Ethanol (07/18/2016 12:41 PM PDT) + +-------+ + + + | Component | Value | Ref Range | Performed | Pathologist | | | | | At | Signature | + +-------+ + + + | ALCOHOL, | <5 | <400 mg/dL | [facility] | | | SERUM/PLASM | | | [facility] | | | A | | | MEDICAL | | | [...] + | [facility] | [address] | [place] | [phone] | | [facility] | | [address] | | | - LABORATORY | | | | + + + + + Comprehensive Metabolic Panel (07/18/2016 12:41 PM PDT) + + + + + + | Component | Value | Ref Range | Performed | Pathologist | | | | | At | Signature | + + + + + + | Na | 140 | 136 - 149 | [facility] | | | | | mmol/L | [facility] | | | | | | MEDICAL | | | | | | CENTER - | | | | | | LABORATORY | | + + + + + + | K | 3.3 (L) | 3.5 - 5.1 | [facility] | | | | | mmol/L | [facility] | | | | | | MEDICAL | | | | | | CENTER - | | | | | | LABORATORY | | + + + + + + | Cl | 108 | 98 - 109 mmol/L | [facility] [...] + + + + | Glucose | 99 | 70 - 109 mg/dL | [facility] | | | | | | [facility] | | | | | | MEDICAL | | | | | | CENTER - | | | | | | LABORATORY | | + + + + + + | BUN | 6 (L) | 7 - 18 mg/dL | [facility] | | | | | | [facility] | | | | | | MEDICAL | | | | | | CENTER - | | | | | | LABORATORY | | + + + + + + | Creatinine | 0.80 | 0.60 - 1.30 | [facility] | | | | | mg/dL | [facility] | | | | | | MEDICAL | | | | | | CENTER - | | | | | | LABORATORY | | + + + + + + | eGFR if not | >60Comment: GLOMERULAR | >=60 | [facility] | | | | FILTRATION | mL/min/1.73m2 | [facility] | | | MONGOLIAN | RATE,ESTIMATED | | MEDICAL | | | | mL/min/1.07i0Muql than | | CENTER - | | [...] + + + + | Calcium | 9.3 | 8.3 - 10.5 | [facility] | | | | | mg/dL | [facility] | | | | | | MEDICAL | | | | | | CENTER - | | | | | | LABORATORY | | + + + + + + | Albumin | 3.8 | 3.2 - 5.0 g/dL | [facility] | | | | | | [facility] | | | | | | MEDICAL | | | | | | CENTER - | | | | | | LABORATORY | | + + + + + + | Bilirubin | 0.6Comment: This is an | 0.1 - 1.5 mg/dL | [facility] | | | Total | appended report. These | | [facility] | | | | results have been | | MEDICAL | | | | appended to a previously | | CENTER - | | | | preliminary verified | | LABORATORY | | | | report. | | | | + + + + + + | Total | 6.2 | 6.0 - 7.8 g/dL | [facility] | | | Protein | | | [facility] | | | | | | MEDICAL | | | | | | CENTER - | | | | | | LABORATORY | | + + + + + + | AST | 22Comment: This is an | 10 - 42 [...] + + + + | ALT | 18Comment: This is an | 6 - 45 [...] + + + + | Alkaline | 46Comment: This is an | 40 - 110 U/L | [facility] | | | Phosphatase | appended report. These | | [facility] | | | | results have been | | MEDICAL | | | | appended to a previously | | CENTER - | | | | preliminary verified | | LABORATORY | | | | report. | | | | + + + + + + | Globulin | 2.4 | 2.1 - 3.8 g/dL | [facility] [...] + + + + | BUN/Creatin | 7.5 | | [facility] | | | ine [...] | [address] | [place] | [phone] | | [facility] | | [address] | | | - LABORATORY | | | | + + + + + CBC w/ Auto Differential (07/18/2016 12:41 PM PDT) + + + + + + | Component | Value | Ref Range | Performed | Pathologist | | | | | At | Signature | + + + + + + | WBC | 12.7 (H) | 4.0 - 11.0 K/uL | [facility] | | | | | | [facility] | | | | | | MEDICAL | | | | | | CENTER - | | | | | | LABORATORY | | + + + + + + | RBC | 4.94 | 3.70 - 5.20 | [facility] | | | | | M/uL | [facility] | | | | | | MEDICAL | | | | | | CENTER - | | | | | | LABORATORY | | + + + + + + | Hemoglobin | 14.9 | 11.5 - 16.0 | [facility] | | | | | g/dL | [facility] | | | | | | MEDICAL | | | | | | CENTER - | | | | | | LABORATORY | | + + + + + + | Hematocrit | 43.9 | 34.0 - 47.0 % | [facility] | | | | | | [facility] | | | | | | MEDICAL | | | | | | CENTER - | | | | | | LABORATORY | | + + + + + + | MCV | 88.8 | 83.0 - 101.0 fL | [facility] | | | | | | [facility] | | | | | | MEDICAL | | | | | | CENTER - | | | | | | LABORATORY | | + + + + + + | MCH | 30.1 | 28.0 - 35.0 pg | [facility] | | | | | | [facility] | | | | | | MEDICAL | | | | | | CENTER - | | | | | | LABORATORY | | + + + + + + | MCHC | 33.9 | 32.0 - 36.0 | [facility] | | | | | g/dL | [facility] | | | | | | MEDICAL | | | | | | CENTER - | | | | | | LABORATORY | | + + + + + + | RDW-CV | 12.9 | <15.0 % | [facility] | | | | | | [facility] | | | | | | MEDICAL | | | | | | CENTER - | | | | | | LABORATORY | | + + + + + + | Platelet | 211 | 140 - 440 K/uL | [facility] | | | Count | | | [facility] | | | | | | MEDICAL | | | | | | CENTER - | | | | | | LABORATORY | | + + + + + + | MPV | 8.5 | fL | [facility] | | | | | | [facility] | | | | | | MEDICAL | | | | | | CENTER - | | | | | | LABORATORY | | + + + + + + | % | 79.5 | 45.0 - 82.0 % | [facility] | | | Neutrophils | | | [facility] | | | | | | MEDICAL | | | | | | CENTER - | | | | | | LABORATORY | | + + + + + + | % | 11.3 (L) | 20.0 - 45.0 % | [facility] | | | Lymphocytes | | | [facility] | | | | | | MEDICAL | | | | | | CENTER - | | | | | | LABORATORY | | + + + + + + | % Monocytes | 8.6 | 4.0 - 12.0 % | [facility] | | | | | | [facility] | | | | | | MEDICAL | | | | | | CENTER - | | | | | | LABORATORY | | + + + + + + | % | 0.1 | 0.0 - 5.0 % | [facility] | | | Eosinophils | | | [facility] | | | | | | MEDICAL | | | | | | CENTER - | | | | | | LABORATORY | | + + + + + + | % Basophils | 0.5 | 0.0 - 1.0 % | [facility] | | | | | | [facility] | | | | | | MEDICAL | | | | | | CENTER - | | | | | | LABORATORY | | + + + + + + | Absolute | 10.10 (H) | 1.80 - 8.50 | [facility] | | | Neutrophils | | K/uL | [facility] | | | | | | MEDICAL | | | | | | CENTER - | | | | | | LABORATORY | | + + + + + + | Absolute | 1.40 | 0.60 - 3.20 | [facility] | | | Lymphocytes | | K/uL | [facility] | | | | | | MEDICAL | | | | | | CENTER - | | | | | | LABORATORY | | + + + + + + | Absolute | 1.10 (H) | 0.00 - 1.00 | [facility] | | | Monocytes | | K/uL | [facility] | | | | | | MEDICAL | | | | | | CENTER - | | | | | | LABORATORY | | + + + + + + | Absolute | 0.00 | 0.00 - 0.40 | [facility] | | | Eosinophils | | K/uL | [facility] | | | | | | MEDICAL | | | | | | CENTER - | | | | | | LABORATORY | | + + + + + + | Absolute | 0.10 | 0.00 - 0.10 | [facility] | | | Basophils | | K/uL | [facility] | | | | [...] | [address] | [place] | [phone] | | [facility] | | [address] | | | - LABORATORY | | | | + + + + + documented in this encounter Visit Diagnoses + + | Diagnosis | + + | Altered mental status, unspecified - Primary | + + | Substance abuse (HCC) Other, mixed, or unspecified nondependent drug abuse, | | unspecified | + + | Acute cystitis without hematuria Acute cystitis | + + documented in this encounter Administered Medications + +--------+ +--------+------+------+ | Medication Order | MAR | Action | Dose | Rate | Site | | | Action | Date | | | | + +--------+ +--------+------+------+ | cephalexin (KEFLEX) capsule 500 | Given | 07/18/20 | 500 mg | | | | mg 500 mg, Oral, ONCE, Thu | | 16 5:27 | | | | | 07/18/16 at 1710, For 1 dose, | | PM PDT | | | | | Indications: UTI - LOWER | | | | | | + +--------+ +--------+------+------+ +---+---+ | | | +---+---+ + +-------+ +------+---+---+ | LORazepam (ATIVAN) tablet 1 mg | Given | 07/18/20 | 1 mg | | | | 1 mg, Oral, ONCE, Thu07/18/16 at | | 16 8:11 | | | | | 2005, For 1 dose | | PM PDT | | | | + +-------+ +------+---+---+ +---+---+ | | | +---+---+ + +-------+ +------+---+---+ | LORazepam (ATIVAN) tablet 1-2 | Given | 07/18/20 | 1 mg | | | | mg 1-2 mg, Oral, ONCE, Fri | | 16 4:15 | | | | | 07/18/16 at 1605, For 1 dose | | PM PDT | | | | + +-------+ +------+---+---+ +---+---+ | | | +---+---+ documented in this encounter
--- OUTSIDE RECORDS SUMMARY | ~2019-12-09 | XMS | Encounter Summary ---
Demographics + + + | Address | [address] | | | [place] [address] | + + + | Home Phone | | + + + | Preferred Language | Unknown | + + + | Marital Status | Single | + + + | Temple Affiliation | Unknown | + + + | Race | Unknown | + + + | Ethnic Group | Unknown | + + + Author + + + | Author | [facility] | | | and [place] | + + + | Organization | [facility] | | | and [place] | + + + | Address | Unknown | + + + | Phone | Unavailable | + + + Support + + + + + | Name | Relationship | Address | Phone | + + + + + | Vanesa Shukla | ECON | [place] | | | | | [address] | | + + + + + | Vanesa Shukla | ECON | [place] | | | | | [address] | | + + + + + Care Team Providers + +------+ + | Care Community Cultural Development Officer Name | Role | Phone | + +------+ + PCP | Unavailable | + +------+ + Encounter Details +--------+ + + + + | Date | Type | Department | Care Team | Description | +--------+ + + + + | 07/13/ | Hospital | [facility] | | | | 2000 | Encounter | MED CTR EMERGENCY | | | | | | CENTER [address] | | | | | | [place] | | | | | | [address] | | | | | | [phone] | | | +--------+ + + + [...]
--- OUTSIDE RECORDS SUMMARY | ~2019-12-09 | XMS | Encounter Summary ---
Demographics + + + | Address | [address] | | | [place] [address] | + + + | Home Phone | | + + + | Preferred Language | Unknown | + + + | Marital Status | Single | + + + | Rastafarian Affiliation | Unknown | + + + [...] [place] | | | | | [address] | | + + + + + | Vanesa Shukla | ECON | [place] | | | | | [address] | | + + + + + Care Team Providers + +------+ + | Care Second Cook And Baker Name | Role | Phone | + [...] | +--------+ + + + + | 10/13/ | Telephone | [facility] | Mulu Mendez, | Lab Results | | 2019 | | [facility] | [facility] [address] [place] [address] | | | | | MED[facility] [address] | [place] [address] | | | | | [facility] [facility], | [phone] | | | | | [place] [address] | | | | | | [phone] | | | +--------+ + + + [...]
--- OUTSIDE RECORDS SUMMARY | ~2019-12-09 | XMS | Encounter Summary ---
Demographics + + + | Address | [address] | | | [place] [address] | + + + | Home Phone | | + + + | Preferred Language | Unknown | + + + | Marital Status | Single | + + + | Alevism Affiliation | Unknown | + + + | Race | Unknown | + + + | Ethnic Group | Unknown | + + + Author + + + | Author | [facility] | | | and [place] | + + + | Organization | [facility] | | | and [place] | + + + | Address | Unknown | + + + | Phone | Unavailable | + + + Support + + + + + | Name | Relationship | Address | Phone | + + + + + | Vanesa Shukla | ECON | [place] | | | | | [address] | | + + + + + | Vanesa Shukla | ECON | [place] | | | | | [address] | | + + + + + Care Team Providers + +------+ + | Care Cooler Room Worker Name | Role | Phone | + +------+ + PCP | Unavailable | + +------+ + Encounter Details +--------+ + + + + | Date | Type | Department | Care Team | Description | +--------+ + + + + | 08/06/ | Hospital | [facility] | CarlosSahil, | | | 2008 | Encounter | MED CTR EMERGENCY | MD [address] | | | | | CENTER [address] | [facility] [place] | | | | | [place], [place] | [place] [address] | | | | | [address] | [phone] | | | | | [phone] | | | +--------+ + + + [...]
--- OUTSIDE RECORDS SUMMARY | ~2019-12-09 | XMS | Encounter Summary ---
Demographics + + + | Address | [address] | | | [place] [address] | + + + | Home Phone | | + + + | Preferred Language | Unknown | + + + | Marital Status | Single | + + + | Sabianism Affiliation | Unknown | + + + | Race | Unknown | + + + | Ethnic Group | Unknown | + + + Author + + + | Author | [facility] | | | and [place] | + + + | Organization | [facility] | | | and [place] | + + + | Address | Unknown | + + + | Phone | Unavailable | + + + Support + + + + + | Name | Relationship | Address | Phone | + + + + + | Vanesa Shukla | ECON | [place] | | | | | [address] | | + + + + + | Vanesa Shukla | ECON | [place] | | | | | [address] | | + + + + + Care Team Providers + +------+ + | Care Billet Heater Operator Name | Role | Phone | + +------+ + PCP | Unavailable | + +------+ + Encounter Details +--------+ + + + + | Date | Type | Department | Care Team | Description | +--------+ + + + + | 05/15/ | Hospital | [facility] | | | | 1998 | Encounter | MED CTR GENERIC OP | | | | | | CONV DEPT [address] | | | | | | [place], | | | | | | [place] [address] | | | | | | [phone] | | | +--------+ + + + [...]
--- OUTSIDE RECORDS SUMMARY | ~2019-12-09 | XMS | Encounter Summary ---
Demographics + + + | Address | [address] | | | [place] [address] | + + + | Home Phone | | + + + | Preferred Language | Unknown | + + + | Marital Status | Single | + + + | Synagogue Affiliation | Unknown | + + + | Race | Unknown | + + + | Ethnic Group | Unknown | + + + Author + + + | Author | [facility] | | | and [place] | + + + | Organization | [facility] | | | and [place] | + + + | Address | Unknown | + + + | Phone | Unavailable | + + + Support + + + + + | Name | Relationship | Address | Phone | + + + + + | Vanesa Shukla | ECON | [place] | | | | | [address] | | + + + + + | Vanesa Shukla | ECON | [place] | | | | | [address] | | + + + + + Care Team Providers + +------+ + | Care Lab Asst Name | Role | Phone | + +------+ + PCP | Unavailable | + +------+ + Encounter Details +--------+ + + + + | Date | Type | Department | Care Team | Description | +--------+ + + + + | 10/29/ | Hospital | [facility] | Nolberto Holm | | | 2000 | Encounter | MED CTR EMERGENCY | MD [address] | | | | | [address] | [facility] | | | | | [place], [place] | [place] [address] | | | | | [address] | [phone] | | | | | [phone] | | | +--------+ + + + [...]
--- OUTSIDE RECORDS SUMMARY | ~2019-12-09 | XMS | Encounter Summary ---
Demographics + + + | Address | [address] | | | [place] [address] | + + + | Home Phone | | + + + | Preferred Language | Unknown | + + + | Marital Status | Single | + + + | Yarsani Affiliation | Unknown | + + + | Race | Unknown | + + + | Ethnic Group | Unknown | + + + Author + + + | Author | [facility] | | | and [place] | + + + | Organization | [facility] | | | and [place] | + + + | Address | Unknown | + + + | Phone | Unavailable | + + + Support + + + + + | Name | Relationship | Address | Phone | + + + + + | Vanesa Shukla | ECON | [place] | | | | | [address] | | + + + + + | Vanesa Shukla | ECON | [place] | | | | | [address] | | + + + + + Care Team Providers + +------+ + | Care Distresser Name | Role | Phone | + +------+ + PCP | Unavailable | + +------+ + Encounter Details +--------+ + + + + | Date | Type | Department | Care Team | Description | +--------+ + + + + | 03/12/ | Hospital | [facility] | | | | 2006 | Encounter | MED CTR EMERGENCY | | | | | | CENTER [address] | | | | | | [place] | | | | | | [address] | | | | | | [phone] | | | +--------+ + + + [...]
--- OUTSIDE RECORDS SUMMARY | ~2019-12-09 | XMS | Encounter Summary ---
Demographics + + + | Address | [address] | | | [place] [address] | + + + | Home Phone | | + + + | Preferred Language | Unknown | + + + | Marital Status | Single | + + + | Holiness Affiliation | Unknown | + + + | Race | Unknown | + + + | Ethnic Group | Unknown | + + + Author + + + | Author | [facility] | | | and [place] | + + + | Organization | [facility] | | | and [place] | + + + | Address | Unknown | + + + | Phone | Unavailable | + + + Support + + + + + | Name | Relationship | Address | Phone | + + + + + | Vanesa Shukla | ECON | [place] | | | | | [address] | | + + + + + | Vaneas Shukla | ECON | [place] | | | | | [address] | | + + + + + Care Team Providers + +------+ + | Care Mixer Operator Name | Role | Phone | [...] Lab Results | | 2019 | | [facility] | ULTRASOUND TECH [address] [place] [address] | | | | | [facility] [address] | [place] [address] | | | | | [address] [facility], | [phone] | | | | | [place] [address] | | | | | | [phone] | | | +--------+ + + + [...]
--- OUTSIDE RECORDS SUMMARY | ~2019-12-09 | XMS | Encounter Summary ---
Demographics + + + | Address | [address] | | | [place] [address] | + + + | Home Phone | | + + + | Preferred Language | Unknown | + + + | Marital Status | Single | + + + | Evangelical Affiliation | Unknown | + + + [...] [place] | | | | | [address] | | + + + + + | Vanesa Shukla | ECON | [place] | | | | | [address] | | + + + + + Care Team Providers + +------+ + | Care Trailer Rental Clerk Name | Role | Phone | + +------+ + | Mulu Mendez | PCP | | + +------+ + Reason for Referral Consultation (Routine) + + + + + + + | Status | Reason | Specialty | Diagnoses / | Referred By | Referred To | | | | | Procedures | Contact | Contact | + + + + + + + | Authorized | Specialty | Neurology | Diagnoses | [place], | Brittani, | | | Services | | Bilateral | ARNAV Hardwick | Beverly Chavez, | | | Required | | isai | [address] | [address] | | | | | tunnel | [place], | [address], | | | | | syndrome | [place] [address] | [place] | | | | | | Phone: | [place], [place] | | | | | | [phone] | [address] Phone: | | | | | | Fax: | [phone] | | | | | | [phone] | Fax: | | | | | | | [phone] | + + + + + + + Reason for Visit + + + | Reason | Comments | + + + | Establish Care | Thyroid concerns | + + + | Arm Pain | | + + + Encounter Details +--------+---------+ + + + | Date | Type | Department | Care Team | Description | +--------+---------+ + + + | 10/12/ | Office | [facility] | Mulu Mendez, | Bilateral carpal | | 2019 | Visit | [facility] | AMBULANCE ATTENDANT [address] [place] | tunnel syndrome | | | | [facility] | [place] [address] | (Primary Dx); | | | | [address] [place], | [phone] | Multiple thyroid | | | | [place] [address] | | nodules; Lower | | | | [phone] | | abdominal pain | +--------+---------+ + + + Social History + +-------+ [...] | | | + +---+---+---+ + + | Tobacco Cessation: Ready to Quit: Yes; Counseling Given: No | + + + + +---------+ + | Alcohol Use [...] + + + | Blood Pressure | 138/80 | 10/12/2019 4:05 PM | | | | | PST | | + + + + + | Pulse | 93 | 10/12/2019 4:05 PM | reg | | | | PST | | + + + + + | Temperature | 36.9 C (98.4 F) | 10/12/2019 4:05 PM | | | | | PST | | + + + + + | Respiratory Rate | 18 | 10/12/2019 4:05 PM | | | | | PST | | + + + + + | Oxygen Saturation | 98% | 10/12/2019 4:05 PM | ra | | | | PST | | + + + + + | Inhaled Oxygen | - | - | | | Concentration | | | | + + + + + | Weight | 91.5 kg (201 lb 12.8 | 10/12/2019 4:05 PM | | | | oz) | PST | | + + + + + | Height | 157.5 cm (5' 2") | 10/12/2019 4:05 PM | | | | | PST | | + + + + + | Body Mass Index | 36.91 | 10/12/2019 4:05 PM | | | | | PST | | + + + + + documented in this encounter Progress Notes Mulu Mendez FNP - 10/12/2019 3:40 PM PSTFormatting of this note might be different f rom the original. Patient ID: Olive Allan is a 39 y.o. year old female Chief Complaint: Chief Complaint Patient presents with Establish Care Thyroid concerns Arm Pain Assessment and Plan: 1. Multiple thyroid nodules - US Thyroid; Future - T3, Free; Future - T4, Free; Future - TSH; Future 2. Bilateral carpal tunnel syndrome - * [facility] Referral - gabapentin (NEURONTIN) 100 mg capsule; Take 1 capsule by mouth 2 times daily. Dispense: 60 capsule; Refill: 0 3. Lower abdominal pain - CBC with Differential; Future - Comprehensive Metabolic Panel; Future - Urinalysis with Microscopic with Culture if Indicated; Future Subjective: HPI: Patient presents to the clinic with her [facility] counselor for thyroid issues and establish ing care. She is currently on a Lamictal taper, Minipress, and Buspar. She participates in therapy an d medication management with [facility]. Due to psychosis and dissociative behavior, there are gaps in her care and past that she cannot remember. She reports that she gets chronic bronchitis. She has seasonal allergies and will have to u se an inhaler for intermittent wheezing. She smokes about half a pack cigarettes a day for 2 7 years. She is clean from marijuana for a year. She has a long history of IV drug use. Her previous doctor found three nodules on her thyroid. She did not have further work up. S he is unsure if she had lab works. She experiences bilateral wrist, hand, and finger pain and numbness that is worse at night. She has chronic arm and neck pain. She reports that she has a herniated disc between C4 and C6. She takes Gabapentin 300mg daily and reports that makes her groggy. She is requesting a lower dose. She was treated for an ear infection with amoxicillin last week. She denies ear pain. She also has a history of kidney stones. She reports that about two years ago she had a 5mm kidney stone. She is experiencing suprapubic pain and her counselor notes that she has diff iculty recognizing when she has a UTI. She uses Imitrex for migraines. She thinks that she gets 1-2 migraines a month. Her counselor reports that she has a history of a TBI. FmHx: mother with ulcers, gallbladder, diabetes; father with asthma, drug and alcohol probl ems, arthritis, sleep apnea Review of Systems Constitutional: Negative. Respiratory: Negative. Cardiovascular: Positive for palpitations. Musculoskeletal: Positive for arthralgias. Allergic/Immunologic: Negative for environmental allergies. Psychiatric/Behavioral: Positive for behavioral problems, dysphoric mood and hallucinations . Objective: Vitals: BP 138/80 | Pulse 93 Comment: reg | Temp 36.9 C (98.4 F) (Oral) | Resp 18 | Ht 1.575 m (5' 2") | Wt 91.5 kg (201 lb 12.8 oz) | SpO2 98% Comment: ra | BMI 36.91 kg/m Physical Exam Constitutional: She is oriented to person, place, and time. She appears well-developed and well-nourished. HENT: Head: Normocephalic and atraumatic. Right Ear: External ear normal. Left Ear: External ear normal. Nose: Nose normal. Mouth/Throat: Oropharynx is clear and moist. No oropharyngeal exudate. Eyes: Pupils are equal, round, and reactive to light. Conjunctivae are normal. Neck: Normal range of motion. Neck supple. Thyroid mass (Left) present. No thyromegaly pres ent. Cardiovascular: Normal rate, regular rhythm and normal heart sounds. Exam reveals no gallop and no friction rub. No murmur heard. Pulmonary/Chest: Effort normal and breath sounds normal. No respiratory distress. She has n o wheezes. She has no rales. She exhibits no tenderness. Abdominal: Soft. Normal appearance and bowel sounds are normal. She exhibits no distension and no mass. There is tenderness in the suprapubic area. There is no rebound and no guarding . Musculoskeletal: Normal range of motion. General: No edema. Cervical back: She exhibits tenderness. Comments: Spurling test negative. Tinel's and phalen positive bilaterally Lymphadenopathy: She has no cervical adenopathy. Neurological: She is alert and oriented to person, place, and time. Reflex Scores: Tricep reflexes are 2+ on the right side and 2+ on the left side. Bicep reflexes are 2+ on the right side and 2+ on the left side. Brachioradialis reflexes are 2+ on the right side and 2+ on the left side. Skin: Skin is warm and dry. Psychiatric: Her speech is normal. Her mood appears anxious. She is agitated. Thought missy nt is delusional. She exhibits abnormal remote memory. Minimal eye contact Entered by Rabia Navarrete CNA 2, [facility], acting as scribe for ARNAV Riley. The documentation recorded by the scribe accurately reflects the service I personally perfo ed and the decisions made by me. Electronically signed by: ARNAV Riley 10/12/2019 4:13 PMElectronically signed by ARNAV Riley at 5:43 PM PSTdocumented in this encounter Plan of Treatment + +---------+--------+ + + | Name | Type | Priori | Associated Diagnoses | Order Schedule | | | | ty | | | + +---------+--------+ + + | US Thyroid | Imaging | Routin | Multiple thyroid | Expected: | | | | e | nodules | 10/12/2019, Expires: | | | | | | 10/12/2020 | + +---------+--------+ + + + + +--------+ + + | Name | Type | Priori | Associated Diagnoses | Order Schedule | | | | ty | | | + + +--------+ + + | * [facility] | Outpatient | Routin | Bilateral carpal | Ordered: 10/12/2019 | | [facility] - [facility] | Referral | e | tunnel syndrome | | | Referral | | | | | + + +--------+ + + documented as of this encounter Results Urinalysis with Microscopic with Culture if Indicated (10/12/2019 4:41 PM PST) + + + + + + | Component | Value | Ref Range | Performed | Pathologist | | | | | At | Signature | + + + + + + | Color, | Yellow | Pale Yellow, | [place] | | | Urine | | Yellow | [facility] | | | | | | [facility] | | + + + + + + | Clarity | Clear | Clear | [place] | | | | | | [facility] | | | | | | [facility] | | + + + + + + | pH, Urine | 6.5 | 5.0 - 7.0 | [place] | | | | | | [facility] | | | | | | [facility] | | + + + + + + | Specific | 1.010 | 1.003 - 1.030 | [place] | | | [place] | | | [facility] | | | | | | [facility] | | + + + + + + | Protein, | Negative | Negative | [place] | | | Urine | | | [facility] | | | | | | [facility] | | + + + + + + | Blood, | 25 vernell/uL (A) | Negative | [facility] | | | Urine | | | [facility] | | | | | | [facility] | | + + + + + + | Glucose, | Normal | Normal | [place] | | | Urine | | | [facility] | | | | | | [facility] | | + + + + + + | Ketones, | 15 mg/dL (A) | Negative | [facility] | | | Urine | | | [facility] | | | | | | [facility] | | + + + + + + | Bilirubin, | Negative | Negative | [place] | | | Urine | | | [facility] | | | | | | [facility] | | + + + + + + | Nitrite, | Negative | Negative | [place] | | | Urine | | | [facility] | | | | | | [facility] | | + + + + + + | Leukocyte | Negative | Negative | [place] | | | Esterase, | | | [facility] | | | Urine | | | [facility] | | | | | | [facility] | | + + + + + + | Urobilinoge | Normal | 0-1.0 mg/dL | [place] | | | n, Urine | | | [facility] | | | | | | [facility] | | + + + + + + | WBC UA | 0-2 | <=5 /HPF | [place] | | | | | | [facility] | | | | | | [facility] | | + + + + + + | RBC UA | 0-2 | <=5 /HPF | [place] | | | | | | [facility] | | | | | | [facility] | | + + + + + + | SQUAMOUS | Trace (A) | None Seen /LPF | [place] | | | EPITHELIAL | | | [facility] | | UA | | | [facility] | | | | | | [facility] | | + + + + + + | BACTERIA UA | None Seen | None Seen /HPF | [facility] | | | | | | [facility] | | | | | | [facility] | | + + + + + + | URINE | Urine Culture Not | | [facility] | | | COMMENT | Indicated | | [facility] | | | | | | [facility] | | + + + + + + + + | Specimen | + + | Urine | + + + + + + + | Performing | Address | City/State/Zipcode | Phone Number | | Organization | | | | + + + + + | [facility] | [address] | [place] [address] | [phone] | | [facility] | | | | + + + + + TSH (10/12/2019 4:41 PM PST) + +-------+ + + + | Component | Value | Ref Range | Performed | Pathologist | | | | | At | Signature | + +-------+ + + + | TSH | 1.64 | 0.36 - 3.74 | [facility] | | | | | uIU/mL | [facility] | | | | | | [facility] | | + +-------+ + + + + + | Specimen | + + | Blood | + + + + + + + | Performing | Address | City/State/Zipcode | Phone Number | | Organization | | | | + + + + + | [facility] | [address] | [place] [address] | [phone] | | [facility] | | | | + + + + + T4, Free (10/12/2019 4:41 PM PST) + +-------+ + + + | Component | Value | Ref Range | Performed | Pathologist | | | | | At | Signature | + +-------+ + + + | FT4 | 1.0 | 0.8 - 1.5 ng/dL | [facility] | | | | | | [facility] | | | [facility] | | | | [facility] | | | | | | [facility] | | + +-------+ + + + + + | Specimen | + + | Blood | + + + + + + + | Performing | Address | City/State/Zipcode | Phone Number | | Organization | | | | + + + + + | [facility] | [address] | [place] [address] | [phone] | | [facility] | | | | | [facility] | | | | + + + + + T3, Free (10/12/2019 4:41 PM PST) + + + + + + | Component | Value | Ref Range | Performed | Pathologist | | | | | At | Signature | + + + + + + | T3, Free | 2.7Comment: @ Test | 2.3 - 4.2 pg/mL | [facility] | | | | Performed By: [facility] | | [facility] | | | | [facility] | | [place] | | | | Dorota Sullivan | | - [facility] | | | | Rocio Capps, Ph.D., | | [place] | | | | Global Transportation Manager | | | | | | [address] [facility] [facility] | | | | | | [place] [address] | | | | | | LILI #[id number] | | | | + + + + + + + + | Specimen | + + | Blood | + + + + + + + | Performing | Address | City/State/Zipcode | Phone Number | | Organization | | | | + + + + + | REFERENCE LAB | [address] [facility] [facility] | [place], [place] | | | [facility] - | | [address] | | | [facility] | | | | + + + + + Comprehensive Metabolic Panel (10/12/2019 4:41 PM PST) + + + + + + | Component | Value | Ref Range | Performed | Pathologist | | | | | At | Signature | + + + + + + | Na | 139 | 132 - 143 | [place] | | | | | mmol/L | [facility] | | | | | | [facility] | | + + + + + + | K | 3.7 | 3.3 - 4.9 | [place] | | | | | mmol/L | [facility] | | | | | | [facility] | | + + + + + + | Cl | 104 | 95 - 108 mmol/L | [place] | | | | | | [facility] | | | | | | [facility] | | + + + + + + | CO2 | 22 (L) | 23 - 34 mmol/L | [place] | | | | | | [facility] | | | | | | [facility] | | + + + + + + | Anion Gap | 13 | 7 - 16 mmol/L | [facility] | | | | | | [facility] | | | | | | [facility] | | + + + + + + | Glucose | 83 | 70 - 110 mg/dL | [facility] | | | | | | [facility] | | | | | | [facility] | | + + + + + + | BUN | 12 | 5 - 26 mg/dL | [facility] | | | | | | [facility] | | | | | | [facility] | | + + + + + + | Creatinine | 0.83 | 0.60 - 1.30 | [place] | | | | | mg/dL | [facility] | | | | | | [facility] | | + + + + + + | eGFR if not | >60Comment: GLOMERULAR | >=60 | [place] | | | | FILTRATION | mL/min/1.73m2 | [facility] | | | [facility] | R[facility],ESTIMATED | | [facility] | | | | mL/min/1.03e0Pois than | | LABORATORY | | | | 60 Chronic kidney | | | | | | disease,if found over [...] | Calcium | 9.3 | 8.3 - 10.0 | [facility] | | | | | mg/dL | [facility] | | | | | | [facility] | | + + + + + + | Albumin | 3.9 | 3.0 - 4.5 g/dL | [facility] | | | | | | [facility] | | | | | | [facility] | | + + + + + + | Bilirubin | 0.4 | 0.0 - 1.2 mg/dL | [facility] | | | Total | | | [facility] | | | | | | [facility] | | + + + + + + | Total | 7.3 | 6.6 - 8.5 g/dL | [facility] | | | Protein | | | [facility] | | | | | | [facility] | | + + + + + + | AST | 21 | 0 - 38 U/L | [facility] | | | | | | [facility] | | | | | | [facility] | | + + + + + + | ALT | 34 | 14 - 59 U/L | [facility] | | | | | | [facility] | | | | | | [facility] | | + + + + + + | Alkaline | 58 | 46 - 116 U/L | [facility] | | | Phosphatase | | | [facility] | | | | | | [facility] | | + + + + + + | Globulin | 3.4 | 2.4 - 4.5 g/dL | [facility] | | | | | | [facility] | | | | | | [facility] | | + + + + + + | Albumin/Mikaela | 1.1 | 0.8 - 2.0 | [facility] | | | bulin Ratio | | | [facility] | | | | | | [facility] | | + + + + + + | BUN/Creatin | 14.5 | 7.0 - 24.0 | [facility] | | | ine Ratio | | | [facility] | | | | | | [facility] | | + + + + + + + + | Specimen | + + | Blood | + + + + + + + | Performing | Address | City/State/Zipcode | Phone Number | | Organization | | | | + + + + + | [facility] | [address] | [place] [address] | [phone] | | [facility] | | | | + + + + + documented in this encounter Visit Diagnoses + + | Diagnosis | + + | Bilateral carpal tunnel syndrome - Primary Carpal tunnel syndrome | + + | Multiple thyroid nodules Nontoxic multinodular goiter | + + | Lower abdominal pain Abdominal pain, other specified site | + + documented in this encounter
--- OUTSIDE RECORDS SUMMARY | ~2019-12-09 | XMS | Encounter Summary ---
Demographics + + + | Address | [address] | | | [place] [address] | + + + | Home Phone | | + + + | Preferred Language | Unknown | + + + | Marital Status | Single | + + + | Orthodoxy Affiliation | Unknown | + + + | Race | Unknown | + + + | Ethnic Group | Unknown | + + + Author + + + | Author | [facility] | | | and [place] | + + + | Organization | [facility] | | | and [place] | + + + | Address | Unknown | + + + | Phone | Unavailable | + + + Support + + + + + | Name | Relationship | Address | Phone | + + + + + | Vanesa Shukla | ECON | [place] | | | | | [address] | | + + + + + | Vanesa Shukla | ECON | [place] | | | | | [address] | | + + + + + Care Team Providers + +------+ + | Care Soda Fountain Manager Name | Role | Phone | + +------+ + PCP | Unavailable | + +------+ + Encounter Details +--------+ + + + + | Date | Type | Department | Care Team | Description | +--------+ + + + + | 01/28/ | Hospital | [facility] | | | | 2008 | Encounter | [facility] | | | | | | CENTER [address] | | | | | | [place] | | | | | | [address] | | | | | | [phone] | | | +--------+ + + + [...]
--- OUTSIDE RECORDS SUMMARY | ~2019-12-09 | XMS | Encounter Summary ---
Demographics + + + | Address | [address] | | | [place] [address] | + + + | Home Phone | | + + + | Preferred Language | Unknown | + + + | Marital Status | Single | + + + | Advent Affiliation | Unknown | + + + | Race | Unknown | + + + | Ethnic Group | Unknown | + + + Author + + + | Author | [facility] | | | and [place] | + + + | Organization | [facility] | | | and [place] | + + + | Address | Unknown | + + + | Phone | Unavailable | + + + Support + + + + + | Name | Relationship | Address | Phone | + + + + + | Vanesa Shukla | ECON | [place] | | | | | [address] | | + + + + + | Vanesa Shukla | ECON | [place] | | | | | [address] | | + + + + + Care Team Providers + +------+ + | Care Shoe Dresser Name | Role | Phone | + +------+ + PCP | Unavailable | + +------+ + Encounter Details +--------+ + + + + | Date | Type | Department | Care Team | Description | +--------+ + + + + | 12/27/ | Hospital | [facility] | | | | 2001 | Encounter | [facility] | | | | | | CENTER [address] | | | | | | [place] | | | | | | [address] | | | | | | [phone] | | | +--------+ + + + [...]
--- OUTSIDE RECORDS SUMMARY | ~2019-12-09 | XMS | Encounter Summary ---
Demographics + + + | Address | [address] | | | [place] [address] | + + + | Home Phone | | + + + | Preferred Language | Unknown | + + + | Marital Status | Single | + + + | Church Affiliation | Unknown | + + + | Race | Unknown | + + + | Ethnic Group | Unknown | + + + Author + + + | Author | [facility] | | | and [place] | + + + | Organization | [facility] | | | and [place] | + + + | Address | Unknown | + + + | Phone | Unavailable | + + + Support + + + + + | Name | Relationship | Address | Phone | + + + + + | Vanesa Shukla | ECON | [place] | | | | | [address] | | + + + + + | Vanesa Shukla | ECON | [place] | | | | | [address] | | + + + + + Care Team Providers + +------+ + | Care Restaurant Operations Manager Name | Role | Phone | + +------+ + PCP | Unavailable | + +------+ + Encounter Details +--------+ + + + + | Date | Type | Department | Care Team | Description | +--------+ + + + + | 09/23/ | Hospital | [facility] | | | | 2008 | Encounter | [facility] | | | | | | [facility] [address] | | | | | | [place], | | | | | | [place] [address] | | | | | | [phone] | | | +--------+ + + + [...]
--- OUTSIDE RECORDS SUMMARY | ~2019-12-09 | XMS | Encounter Summary ---
Demographics + + + | Address | [address] | | | [place] [address] | + + + | Home Phone | | + + + | Preferred Language | Unknown | + + + | Marital Status | Single | + + + | Orthodoxy Affiliation | Unknown | + + + | Race | Unknown | + + + | Ethnic Group | Unknown | + + + Author + + + | Author | [facility] | | | and [place] | + + + | Organization | [facility] | | | and [place] | + + + | Address | Unknown | + + + | Phone | Unavailable | + + + Support + + + + + | Name | Relationship | Address | Phone | + + + + + | Vanesa Shukla | ECON | [place] | | | | | [address] | | + + + + + | Vanesa Shukla | ECON | [place] | | | | | [address] | | + + + + + Care Team Providers + +------+ + | Care Turbine Operator Name | Role | Phone | + +------+ + PCP | Unavailable | + +------+ + Encounter Details +--------+ + + + + | Date | Type | Department | Care Team | Description | +--------+ + + + + | 10/30/ | Hospital | [facility] | | | | 2008 | Encounter | [facility] | | | | | | [facility] [address] | | | | | | [place], | | | | | | [place] [address] | | | | | | [phone] | | | +--------+ + + + [...]
--- OUTSIDE RECORDS SUMMARY | ~2019-12-09 | XMS | Encounter Summary ---
Demographics + + + | Address | [address] | | | [place] [address] | + + + | Home Phone | | + + + | Preferred Language | Unknown | + + + | Marital Status | Single | + + + | Denominational Affiliation | Unknown | + + + | Race | Unknown | + + + | Ethnic Group | Unknown | + + + Author + + + | Author | [facility] | | | and [place] | + + + | Organization | [facility] | | | and [place] | + + + | Address | Unknown | + + + | Phone | Unavailable | + + + Support + + + + + | Name | Relationship | Address | Phone | + + + + + | Vanesa Shukla | ECON | [place] | | | | | [address] | | + + + + + | Vanesa Shukla | ECON | [place] | | | | | [address] | | + + + + + Care Team Providers + +------+ + | Care Negative Cleaner Name | Role | Phone | + +------+ + | No, Physician | PCP | Unavailable | + +------+ + Reason for Visit + + + | Reason | Comments | + + + | Ankle Injury | | + + + Encounter Details +--------+ + + + + | Date | Type | Department | Care Team | Description | +--------+ + + + + | 02/23/ | Emergency | [facility] | Quinn Galarza, | Sprain of | | 2015 | | MED CTR EM[facility] | MD [address] | calcaneofibular | | | | CENTER [address] | [place], [place] | ligament of left | | | | [place], [place] | [id number] | ankle, initial | | | | [address] | | encounter (Primary | | | | [phone] | Doc Forbes, | Dx) | | | | | MD [address] | | | | | | [place], [place] | | | | | | [address] | | | | | | | [...] + + + | Blood Pressure | 136/98 | 02/24/2016 6:57 PM | | | | | PDT | | + + + + + | Pulse | 92 | 02/24/2016 6:57 PM | | | | | PDT | | + + + + + | Temperature | 37.1 C (98.8 F) | 02/24/2016 6:57 PM | | | | | PDT | | + + + + + | Respiratory Rate | 16 | 02/24/2016 6:57 PM | | | | | PDT | | + + + + + | Oxygen Saturation | 98% | 02/24/2016 6:57 PM | | | | | PDT | | + + + + + | Inhaled Oxygen | - | - | | | Concentration | | | | + + + + + | Weight | 77.1 kg (170 lb) | 02/24/2016 6:57 PM | | | | | PDT | | + + + + + | Height | 157.5 cm (5' 2") | 02/24/2016 6:57 PM | | | | | PDT | | + + + + + | Body Mass Index | 31.09 | 02/24/2016 6:57 PM | | | | | PDT | | + + + + + documented in this encounter Medications at Time [...] | + +--------+ + + + | XR ANKLE LEFT 3 + VW | STAT | 02/24/2016 | | Results for this | | | | 7:17 PM | | procedure are in the | | | | PDT | | results section. | + +--------+ + + + documented in this encounter Results XR Ankle Left 3 + Vw (02/24/2016 7:17 PM PDT) + + | Specimen | + + | | + + + + + | Narrative | Performed At | + + + | XR ANKLE LEFT 3 + VW. 02/24/2016 7:11 PM HISTORY: ANKLE INJURY | [facility] | | . COMPARISON: None available. FINDINGS: Joint spaces and | | | alignment are maintained, without evidence of fracture or | | | dislocation. Ankle mortise is intact. Talar dome is smooth. | | | There is a prominent plantar calcaneal enthesophyte . There is | | | soft tissue swelling at the ankle, predominantly laterally. | | | IMPRESSION - No radiographic evidence of fracture or dislocation. | | | Swelling predominantly at the lateral ankle, consistent with soft | | | tissue injury. Dictated and Signed by: Bob Lua MD | | | Electronically signed: 02/25/2016 8:59 AM | | + + + + + | Procedure Note | + + | Epifanio, Rad Results In - 02/25/2016 9:02 AM PDT XR ANKLE LEFT 3 + VW. 02/24/2016 7:11 | | PMHISTORY: ANKLE INJURY . COMPARISON: None available.FINDINGS:Joint spaces and | | alignment are maintained, without evidence of fracture ordislocation. Ankle mortise is | | intact. Talar dome is smooth. There is aprominent plantar calcaneal enthesophyte . | | There is soft tissue swelling at theankle, predominantly laterally.IMPRESSION -No | | radiographic evidence of fracture or dislocation. Swelling predominantly atthe lateral | | ankle, consistent with soft tissue injury.Dictated and Signed by: Bob Lua MD | | Electronically signed: 02/25/2016 8:59 AM | |dislocation. Ankle mortise is intact. Talar dome is smooth. There is a | |prominent plantar calcaneal enthesophyte . There is soft tissue swelling at the | |ankle, predominantly laterally. | | | | | |IMPRESSION - | |No radiographic evidence of fracture or dislocation. Swelling predominantly at | |the lateral ankle, consistent with soft tissue injury. | | | |Dictated and Signed by: Bob Lua MD | | Electronically signed: 02/25/2016 8:59 AM | + + + +---------+ + + | Performing | Address | City/State/Zipcode | Phone Number | | Organization | | | | + +---------+ + + | [facility] | | | | + +---------+ + + documented in this encounter Visit Diagnoses + + | Diagnosis | + + | Sprain of calcaneofibular ligament of left ankle, initial encounter - Primary | + + documented in this encounter
--- OUTSIDE RECORDS SUMMARY | ~2019-12-09 | XMS | Encounter Summary ---
Demographics + + + | Address | [address] | | | [place] [address] | + + + | Home Phone | | + + + | Preferred Language | Unknown | + + + | Marital Status | Single | + + + | Pentecostalism Affiliation | Unknown | + + + [...] [place] | | | | | [address] | | + + + + + | Vanesa Shukla | ECON | [place] | | | | | [address] | | + + + + + Care Team Providers + +------+ + | Care Social Science Instructor Name | Role | Phone | + [...] | | | | syndrome | [place] [address] | [address] [place] | | | | | | Phone: | [place], [place] | | | | | | [phone] | [address] Phone: | | | | | | Fax: | [phone] | | | | | | [phone] | Fax: | | | | | | | [phone] | + + + + + + [...] carpal | | 2019 | Visit | [facility] | CIVIL CAD TECH [address] [place] | tunnel syndrome | | | | [facility] | [place] [address] | (Primary Dx); | | | | [address] [place], | [phone] | Multiple thyroid | | | | [place] [address] | | nodules; Lower | | | | [phone] | | abdominal pain | +--------+---------+ + [...] contact Entered by Rabia Navarrete CNA 2, [facility], acting as scribe for ARNAV Riley. The [...] - 1.030 | [place] | | | [facility] | | | [facility] | | | [...] + + | [place] [facility] | [address] | [place] [address] | [phone] | | HOSPITAL LAB[facility]ATORY | | | [...] + + | [place] [facility] | [address] | [place] [address] | [phone] | | HOSPITAL LAB[facility]ATORY | | | [...] + + | [facility] [facility] | [address] | [place] [address] | [phone] | | [facility] | | | [...] | | [place] | | | | Engineering Inspection Assistant | | | | | | [address] [facility] | | | | | | [place] [address] | | | | | | LILI #[id number] | | | | + + + + + + + + | Specimen | + + | Blood | + + + + + + + | Performing | Address | City/State/Zipcode | Phone Number | | Organization | | | | + + + + + | REFERENCE LAB | [address] [facility] | [place], [place] | | | [facility] - | | [address] | | | [facility] | | [...] | mL/min/1.73m2 | [facility] | | | [facility] | RATE,ESTIMATED | | HOSPITAL | | | | mL/min/1.94t7Kbts than | | LABORATORY | | | [...] | 14.5 | 7.0 - 24.0 | [place] | | | ine Ratio | | [...] + + | [place] [facility] | [address] | [place] [address] | [phone] | | HOSPITAL LABORATORY | | | [...]
--- OUTSIDE RECORDS SUMMARY | ~2019-12-09 | XMS | Encounter Summary ---
Demographics + + + | Address | [address] | | | [place] [address] | + + + | Home Phone | | + + + | Preferred Language | Unknown | + + + | Marital Status | Single | + + + | Methodist Affiliation | Unknown | + + + | Race | Unknown | + + + | Ethnic Group | Unknown | + + + Author + + + | Author | [facility] | | | and [place] | + + + | Organization | [facility] | | | and [place] | + + + | Address | Unknown | + + + | Phone | Unavailable | + + + Support + + + + + | Name | Relationship | Address | Phone | + + + + + | Vanesa Shukla | ECON | [place] | | | | | [address] | | + + + + + | Vanesa Shukla | ECON | [place] | + | | | | [address] | | + + + + + Care Team Providers + +------+ + | Care Disability Insurance Claim Examiner Name | Role | Phone | + [...] | +--------+ + + + + | 07/30/ | Emergency | [facility] | Doc Forbes, | Medical clearance | | 2015 | | MED CTR EM[facility]Y | ID [address] [facility] | for psychiatric | | | | [place] [address] [address] | [place], [place] | admission (Primary | | | | [place], [place] | [address] | Dx); Acute psychosis | | | | [address] | | | | | | [phone] | | | +--------+ + + + [...] + + + | Blood Pressure | 137/97 | 07/30/2016 8:42 PM | | | | | PDT | | + + + + + | Pulse | 110 | 07/30/2016 8:42 PM | | | | | PDT | | + + + + + | Temperature | 36.7 C (98.1 F) | 07/30/2016 8:42 PM | | | | | PDT | | + + + + + | Respiratory Rate | 16 | 07/30/2016 8:42 PM | | | | | PDT | | + + + + + | Oxygen Saturation | 100% | 07/30/2016 8:42 PM | | | | | PDT | | + + + + + | Inhaled Oxygen | - | - | | | Concentration | | | | + + + + + | Weight | 81.6 kg (180 lb) | 07/30/2016 8:42 PM | | | | | PDT | | + + + + + | Height | 162.6 cm (5' 4") | 07/30/2016 8:42 PM | | | | | PDT | | + + + + + | Body Mass Index | 30.9 | 07/30/2016 8:42 PM | | | | | PDT | | + + + + + documented in this encounter Discharge Instructions AttachmentsThe following attachments cannot be sent through Care Everywhere.RIVAS BALDWIN FOR PSYCH ADMISSION (NEPALI)documented in this encounter Medications at Time of [...] INFORMATION | GABBY | Routin | | 07/30/2016 11:20 PM | | EXCHANGE | | e | | PDT | + +------+--------+ + + documented as of this encounter Procedures + +--------+ + + + | Procedure Name | Priori | Date/Time | Associated Diagnosis | Comments | | | ty | | | | + +--------+ + + + | CBC W/AUTO | STAT | 07/30/2016 | | Results for this | | DIFFERENTIAL | | 9:26 PM | | procedure are in the | | | | PDT | | results section. | + +--------+ + + + | ALCOHOL | STAT | 07/30/2016 | | Results for this | | | | 9:26 PM | | procedure are in the | | | | PDT | | results section. | + +--------+ + + + | COMPREHENSIVE | STAT | 07/30/2016 | | Results for this | | METABOLIC PANEL | | 9:26 PM | | procedure are in the | | | | PDT | | results section. | + +--------+ + + + documented in this encounter Results Ethanol (07/30/2016 9:26 PM PDT) + +-------+ + + + | Component | Value | Ref Range | Performed | Pathologist | | | | | At | Signature | + +-------+ + + + | ALCOHOL, | <5 | <400 mg/dL | [facility] | | | SERUM/PLASM | | | [facility] | | | A | | | [...] + | [facility] | [address] | [place] | [phone] | | [facility] | | [address] | | | - LABORATORY | | | | + + + + + Comprehensive Metabolic Panel (07/30/2016 9:26 PM PDT) + + + + + + | Component | Value | Ref Range | Performed | Pathologist | | | | | At | Signature | + + + + + + | Na | 140 | 136 - 149 | [facility] | | | | | mmol/L | [facility] | | | | | | MEDICAL | | | | | | CENTER - | | | | | | LABORATORY | | + + + + + + | K | 4.3 | 3.5 - 5.1 | [facility] | | | | | mmol/L | [facility] | | | | | | MEDICAL | | | | | | CENTER - | | | | | | LABORATORY | | + + + + + + | Cl | 105 | 98 - 109 mmol/L | [facility] | | | | | | [facility] | | | | | | MEDICAL | | | | | | CENTER - | | | | | | LABORATORY | | + + + + + + | CO2 | 23 (L) | 24 - 31 mmol/L | [facility] | | | | | | [facility] | | | | | | MEDICAL | | | | | | CENTER - | | | | | | LABORATORY | | + + + + + + | Anion Gap | 12 | 3 - 16 mmol/L | [facility] | | | | | | [facility] | | | | | | MEDICAL | | | | | | CENTER - | | | | | | LABORATORY | | + + + + + + | Glucose | 142 (H) | 70 - 109 mg/dL | [facility] | | | | | | [facility] | | | | | | MEDICAL | | | | | | CENTER - | | | | | | LABORATORY | | + + + + + + | BUN | 10 | 7 - 18 mg/dL | [facility] | | | | | | [facility] | | | | | | MEDICAL | | | | | | CENTER - | | | | | | LABORATORY | | + + + + + + | Creatinine | 1.04 | 0.60 - 1.30 | [facility] | | | | | mg/dL | [facility] | | | | | | MEDICAL | | | | | | CENTER - | | | | | | LABORATORY | | + + + + + + | eGFR if not | 60Comment: GLOMERULAR | >=60 | [facility] | | | | FILTRATION | mL/min/1.73m2 | [facility] | | | LATVIAN | RATE,ESTIMATED | | MEDICAL | | | | mL/min/1.32z5Bsss than | | CENTER - | | [...] + + + + | Calcium | 9.7 | 8.3 - 10.5 | [facility] | | | | | mg/dL | [facility] | | | | | | MEDICAL | | | | | | CENTER - | | | | | | LABORATORY | | + + + + + + | Albumin | 3.9 | 3.2 - 5.0 g/dL | [facility] | | | | | | [facility] | | [facility] | | | MEDICAL | | | | | | CENTER - | | | | | | LABORATORY | | + + + + + + | Bilirubin | 0.9 | 0.1 - 1.5 mg/dL | [facility] | | | Total | | | [facility] | | [...] + + + + | AST | 36 | 10 - 42 U/L | [facility] | | | | | | [facility] | | | | | | MEDICAL | | | | | | CENTER - | | | | | | LABORATORY | | + + + + + + | ALT | 25 | 6 - 45 U/L | [facility] | | | | | | [facility] | | | | | | MEDICAL | | | | | | CENTER - | | | | | | LABORATORY | | + + + + + + | Alkaline | 51 | 40 - 110 U/L | [facility] | | | Phosphatase | | | [facility] | | [...] + + + + | BUN/Creatin | 9.6 | | [facility] | | | ine [...] | + + + + + | [facility] | [address] | [place] | [phone] | | [facility] | | [address] | | | - LABORATORY | | | | + + + + + CBC w/ Auto Differential (07/30/2016 9:26 PM PDT) + + + + + + | Component | Value | Ref Range | Performed | Pathologist | | | | | At | Signature | + + + + + + | WBC | 11.1 (H) | 4.0 - 11.0 K/uL | [facility] | | | | | | [facility] | | | | | | MEDICAL | | | | | | CENTER - | | | | | | LABORATORY | | + + + + + + | RBC | 4.63 | M/uL | [facility] | | | | | | [facility] | | | | | | MEDICAL | | | | | | CENTER - | | | | | | LABORATORY | | + + + + + + | Hemoglobin | 13.9 | g/dL | [facility] | | | | | | [facility] | | | | | | MEDICAL | | | | | | CENTER - | | | | | | LABORATORY | | + + + + + + | Hematocrit | 40.6 | % | [facility] | | | | | | [facility] | | | | | | MEDICAL | | | | | | CENTER - | | | | | | LABORATORY | | + + + + + + | MCV | 87.8 | fL | [facility] | | | | | | [facility] | | | | | | MEDICAL | | | | | | CENTER - | | | | | | LABORATORY | | + + + + + + | MCH | 30.0 | 28.0 - 35.0 pg | [facility] | | | | | | [facility] | | | | | | MEDICAL | | | | | | CENTER - | | | | | | LABORATORY | | + + + + + + | MCHC | 34.2 | 32.0 - 36.0 | [facility] | | | | | g/dL | [facility] | | | | | | MEDICAL | | | | | | CENTER - | | | | | | LABORATORY | | + + + + + + | RDW-CV | 13.6 | <15.0 % | [facility] | | | | | | [facility] | | | | | | MEDICAL | | | | | | CENTER - | | | | | | LABORATORY | | + + + + + + | Platelet | 311 | 140 - 440 K/uL | [facility] | | | Count | | | [facility] | | | | | | MEDICAL | | | | | | CENTER - | | | | | | LABORATORY | | + + + + + + | MPV | 7.6 | fL | [facility] | | | | | | [facility] | | | | | | MEDICAL | | | | | | CENTER - | | | | | | LABORATORY | | + + + + + + | % | 78.8 | 45.0 - 82.0 % | [facility] | | | Neutrophils | | | [facility] | | | | | | MEDICAL | | | | | | CENTER - | | | | | | LABORATORY | | + + + + + + | % | 12.3 (L) | 20.0 - 45.0 % | [facility] | | | Lymphocytes | | | [facility] | | | | | | MEDICAL | | | | | | CENTER - | | | | | | LABORATORY | | + + + + + + | % Monocytes | 8.0 | 4.0 - 12.0 % | [facility] | | | | | | [facility] | | | | | | MEDICAL | | | | | | CENTER - | | | | | | LABORATORY | | + + + + + + | % | 0.4 | 0.0 - 5.0 % | [facility] [...] + + + + | Absolute | 8.70 (H) | 1.80 - 8.50 | [facility] [...] + + + + | Absolute | 0.90 | 0.00 - 1.00 | [facility] | [...] | Basophils | | K/uL | [facility] | [...] | [address] | [place] | [phone] | | [facility] | | [address] | | | - LABORATORY | | | | + + + + + documented in this encounter Visit Diagnoses + + | Diagnosis | + + | Medical clearance for psychiatric admission - Primary | + + | Acute psychosis (HCC) Unspecified psychosis | + + documented in this encounter
--- OUTSIDE RECORDS SUMMARY | ~2019-12-09 | XMS | Encounter Summary ---
Demographics + + + | Address | [address] | | | [place] [address] | + + + | Home Phone | | + + + | Preferred Language | Unknown | + + + | Marital Status | Single | + + + | Islam Affiliation | Unknown | + + + | Race | Unknown | + + + | Ethnic Group | Unknown | + + + Author + + + | Author | [facility] | | | and [place] | + + + | Organization | [facility] | | | and [place] | + + + | Address | Unknown | + + + | Phone | Unavailable | + + + Support + + + + + | Name | Relationship | Address | Phone | + + + + + | Vanesa Shukla | ECON | [place] | | | | | [address] | | + + + + + | Vanesa Shukla | ECON | [place] | | | | | [address] | | + + + + + Care Team Providers + +------+ + | Care Metal Furniture Repairer Name | Role | Phone | + +------+ + PCP | Unavailable | + +------+ + Encounter Details +--------+ + + + + | Date | Type | Department | Care Team | Description | +--------+ + + + + | 01/19/ | Hospital | [facility] | | | | 2007 | Encounter | [facility] | | | | | | CENTER [address] | | | | | | [place] | | | | | | [address] | | | | | | [phone] | | | +--------+ + + + [...]
--- OUTSIDE RECORDS SUMMARY | ~2019-12-09 | XMS | Encounter Summary ---
Demographics + + + | Address | [address] | | | [place] [address] | + + + | Home Phone [...] + + | Author | [facility] | | | and [place] | + + + | Organization | [facility] | | | and [place] | + + + | Address | Unknown | + + + | Phone | Unavailable | + + + Support + + + + + | Name | Relationship | Address | Phone | + + + + + | Vanesa Shukla | ECON | [place] | | | | | [address] | | + + + + + | Vanesa Shukla | ECON | [place] | | | | | [address] | | + + + + + Care Team Providers + +------+ + | Care Rug Cutter Name | Role | Phone | [...] + + | 10/18/ | Emergency | [facility] | John Hicks | Psychosis, | | 2017 | | [facility] EM[facility] | DO [address] | unspecified | | | | [place] [address] | [facility] | psychosis type (HCC) | | | | [place], [place] | [place] [address] | (Primary Dx) | | | | [address] | [phone] | | | | | [phone] | | | +--------+ + + + [...] E?MRN: | | | | | | [id number] | | | [id number] | | | his | | | [...] | | | ent/33 | | | [id number] | | | [phone]- | | | [...] | | | St. | | | [facility] | | | y | | | [...] | | | St. | | | [facility] | | | y | | | Hospit | | | al | | | Patien | | | t is | | | curren | | | tly | | | establ | | | ished | | | with | | | St | | | [facility] | | | y | | | [...] St | | | | | | [facility] | | | y | | | [...] - 1.030 | [facility] | | | [facility] | | | [facility] | | [...] | | EPITHELIAL | | | [facility] | | | [facility] | | | [...] + | [facility] | [address] | [place] | [phone] | | [facility] | | [address] | | | - LABORATORY | | [...] | + + + + + | [facility] | [address] | [place], [place] | [phone] | | [facility] | | [address] | | | - LABORATORY | | [...] | [facility] | [address] | [place] | [phone] | | [facility] | | [address] | | | - LABORATORY | | [...] MD | | | | | | ([id number]) on 10/19/2018 | | | | | [...]
--- OUTSIDE RECORDS SUMMARY | ~2019-12-09 | XMS | Encounter Summary ---
Demographics + + + | Address | [address] | | | [place] [address] | + + + | Home Phone | | + + + | Preferred Language | Unknown | + + + | Marital Status | Single | + + + | Episcopal Affiliation | Unknown | + + + | Race | Unknown | + + + | Ethnic Group | Unknown | + + + Author + + + | Author | [facility] | | | and [place] | + + + | Organization | [facility] | | | and [place] | + + + | Address | Unknown | + + + | Phone | Unavailable | + + + Support + + + + + | Name | Relationship | Address | Phone | + + + + + | Vanesa Shukla | ECON | [place] | | | | | [address] | | + + + + + | Vanesa Shukla | ECON | [place] | | | | | [address] | | + + + + + Care Team Providers + +------+ + | Care Hoof Trimmer Name | Role | Phone | + +------+ + PCP | Unavailable | + +------+ + Encounter Details +--------+ + + + + | Date | Type | Department | Care Team | Description | +--------+ + + + + | 09/06/ | Hospital | [facility] | Nolberto Holm | | | 2008 | Encounter | MED CTR EM[facility] | MD [place] [address] | | | | | [place] [address] | [facility] | | | | | [place], [place] | [place] [address] | | | | | [address] | [phone] | | | | | [phone] | | | +--------+ + + + [...]
--- OUTSIDE RECORDS SUMMARY | ~2019-12-09 | XMS | Encounter Summary ---
Demographics + + + | Address | [address] | | | [place] [address] | + + + | Home Phone | | + + + | Preferred Language | Unknown | + + + | Marital Status | Single | + + + | Yarsanism Affiliation | Unknown | + + + | Race | Unknown | + + + | Ethnic Group | Unknown | + + + Author + + + | Author | [facility] | | | and [place] | + + + | Organization | [facility] | | | and [place] | + + + | Address | Unknown | + + + | Phone | Unavailable | + + + Support + + + + + | Name | Relationship | Address | Phone | + + + + + | Vanesa Shukla | ECON | [place] | | | | | [address] | | + + + + + | Vanesa Shukla | ECON | [place] | | | | | [address] | | + + + + + Care Team Providers + +------+ + | Care Internet Marketing Director Name | Role | Phone | + +------+ + | No, Physician | PCP | Unavailable | + +------+ + Reason for Visit + + + | Reason | Comments | + + + | Depression | | + + + Encounter Details +--------+ + + + + | Date | Type | Department | Care Team | Description | +--------+ + + + + | 07/24/ | Emergency | [facility] | Juan Pablo Sierra, | Acute exacerbation | | 2015 | | [facility] | [place] [address] | of psychosis | | | | [place] [address] | [place], [place] | (Primary Dx); Severe | | | | [place], [place] | [address] | episode of | | | | [address] | | recurrent major | | | | [phone] | | depressive disorder, | | | | | | with psychotic | | | | | | features (HCC); | | | | | | Methamphetamine | | | | | | abuse; Mild | | | | | | tetrahydrocannabinol | | | | | | (THC) abuse | +--------+ + + + + Social [...] this encounter Last Filed Vital Signs + +---------+ + + | Vital Sign | Reading | Time Taken | Comments | + +---------+ + + | Blood Pressure | 114/88 | 07/24/2016 9:01 PM | | | | | PDT | | + +---------+ + + | Pulse | 91 | 07/24/2016 9:01 PM | | | | | PDT | | + +---------+ + + | Temperature | - | - | | + +---------+ + + | Respiratory Rate | 16 | 07/24/2016 9:01 PM | | | | | PDT | | + +---------+ + + | Oxygen Saturation | 97% | 07/24/2016 9:01 PM | | | | | PDT | | + +---------+ + + | Inhaled Oxygen | - | - | | | Concentration | | | | + +---------+ + + | Weight | - | - | | + +---------+ + + | Height | - | - | | + +---------+ + + | Body Mass Index | - | - | | + +---------+ + + documented in this encounter Discharge Instructions AttachmentsThe following attachments cannot be sent through Care Everywhere.ADDICTION, ALYSON CTION (EQUATORIAL GUINEAN)ADDICTION, RECOVERING (EQUATORIAL GUINEAN)ADDICTION: YOUR TREATMENT OPTIONS (EQUATORIAL GUINEAN)doc umented in this encounter Medications at Time of [...] + | URINALYSIS WITH | STAT | 07/24/2016 | | Results for this | | MICROSCOPIC WITH | | 6:07 PM | | procedure are in the | | CULTURE IF INDICATED | | PDT | | results section. | + +--------+ + + + | DRUGS OF ABUSE, | STAT | 07/24/2016 | | Results for this | | SCREEN, URINE | | 6:07 PM | | procedure are in the | | | | PDT | | results section. | + +--------+ + + + | CULTURE, URINE | Routin | 07/24/2016 | | Results for this | | | e | 6:07 PM | | procedure are in the | | | | PDT | | results section. | + +--------+ + + + | CBC W/AUTO | STAT | 07/24/2016 | | Results for this | | DIFFERENTIAL | | 4:43 PM | | procedure are in the | | | | PDT | | results section. | + +--------+ + + + | HCG, SERUM, QUANT | STAT | 07/24/2016 | | Results for this | | | | 4:43 PM | | procedure are in the | | | | PDT | | results section. | + +--------+ + + + | TSH | STAT | 07/24/2016 | | Results for this | | | | 4:43 PM | | procedure are in the | | | | PDT | | results section. | + +--------+ + + + | ALCOHOL | STAT | 07/24/2016 | | Results for this | | | | 4:43 PM | | procedure are in the | | | | PDT | | results section. | + +--------+ + + + | ACETAMINOPHEN LEVEL | STAT | 07/24/2016 | | Results for this | | | | 4:43 PM | | procedure are in the | | | | PDT | | results section. | + +--------+ + + + | SALICYLATE LEVEL | STAT | 07/24/2016 | | Results for this | | | | 4:43 PM | | procedure are in the | | | | PDT | | results section. | + +--------+ + + + | COMPREHENSIVE | STAT | 07/24/2016 | | Results for this | | METABOLIC PANEL | | 4:43 PM | | procedure are in the | | | | PDT | | results section. | + +--------+ + + + | ECG 12 LEAD | STAT | 07/24/2016 | | Results for this | | | | 4:39 PM | | procedure are in the | | | | PDT | | results section. | + +--------+ + + + documented in this encounter Results Culture, Urine (07/24/2016 6:07 PM PDT) + + + + + + | Component | Value | Ref Range | Performed | Pathologist | | | | | At | Signature | + + + + + + | Culture | 100,000 CFU/ml Mixed | | [facility] | | | | mercedes (multiple | | [facility] | | | | morphologies | | MEDICAL | | | | present)Comment: | | CENTER - | | | | Suggests contamination | | LABORATORY | | | | with urogenital or skin | | | | | | mercedes.No further work-up | | | | | | to follow. | | | | + + + + + + + + | Specimen | + + | Urine - Urine | | specimen (specimen) | + + + + + + + | Performing | Address | City/State/[facility] | Phone Number | | Organization | | | | + + + + + | [facility] | [address] | [place], [place] | [phone] | | [facility] | | [address] | | | - LABORATORY | | | | + + + + + Drugs of Abuse, Screen, Urine (07/24/2016 6:07 PM PDT) + + + + + [...] | Urine - Urine | | specimen (specimen) | + + + + + + + | Performing | Address | City/State/Zipcode | Phone Number | | Organization | | | | + + + + + | [facility] | [address] | [place] | [phone] | | [facility] | | [address] | | | - LABORATORY | | | | + + + + + Urinalysis with Microscopic with Culture if Indicated (07/24/2016 6:07 PM PDT) + + + + + [...] - 1.030 | [facility] | | | [place] | | | [facility] | | [...] + + + + | Ketones, | Trace (A) | Negative | [facility] | | [...] + + + + | Leukocyte | Small (A) | Negative | [facility] | | [...] + + + | WBC UA | 10-15 (A) | 0 - [...] + + + + + + | CALCIUM | Few (A) | None Seen /HPF | [facility] | | | [facility] | | | [facility] | | | [facility] | | | MEDICAL | | | | | | CENTER - | | | | | | LABORATORY | | + + + + + + | URINE | Urine Culture Set Up | | [facility] | | | COMMENT | | | [facility] | | | | | | MEDICAL | | | | | | CENTER - | | | | | | LABORATORY | | + + + + + + + + | Specimen | + + | Urine - Urine | | specimen (specimen) | + + + + + + + | Performing | Address | City/State/Zipcode | Phone Number | | Organization | | | | + + + + + | [facility] | [address] | [place] | [phone] | | [facility] | | [address] | | | - LABORATORY | | | | + + + + + HCG, Serum, Quant (07/24/2016 4:43 PM PDT) + + + + + + | Component | Value | Ref Range | Performed | Pathologist | | | | | At | Signature | + + + + + + | hCG Quant, | 0Comment: REFERENCE | 0 - 5 mIU/mL | [facility] | | | Serum | RANGE: MALE & | | [facility] | | | | NON- FEMALE | | MEDICAL | | | | <0.5-5.0 mIU/mL | | CENTER - | | | | | | LABORATORY | | | | B-hCG | | | | | | LEVELGestational Age | | | | | | Expected hCG | | | | | | Values | | | | | | | | | | | | 0 | | | | | | .2-1 week | | | | | | 5-50 | | | | | | mIU/mL1-2 weeks | | | | | | 50-500 | | | | | | mIU/mL2-3 weeks | | | | | | 100-5,000 | | | | | | mIU/mL3-4 weeks | | | | | | 500-10,000 | | | | | | mIU/mL4-5 weeks | | | | | | 1,000-50,000 | | | | | | mIU/mL5-6 weeks | | | | | | 10,000-100,000 | | | | | | mIU/mL6-8 weeks | | | | | | 15,000-200,000 | | | | | | mIU/mL2-3 months | | | | | | 10,000-100,000 | | | | | | mIU/mL | | | | + + + + + + + + | Specimen | + + | Blood | + + + + + + + | Performing | Address | City/State/Zipcode | Phone Number | | Organization | | | | + + + + + | [facility] | [address] | [place] | [phone] | | [facility] | | [address] | | | - LABORATORY | | | | + + + + + Acetaminophen Level (07/24/2016 4:43 PM PDT) + +-------+ + + + | Component | Value | Ref Range | Performed | Pathologist | | | | | At | Signature | + +-------+ + + + | Acetaminoph | <10 | <10 ug/mL | [facility] | | | en Level | | | [facility] | | [...] + | [facility] | [address] | [place] | [phone] | | [facility] | | [address] | | | - LABORATORY | | | | + + + + + Salicylate Level (07/24/2016 4:43 PM PDT) + +-------+ + + + | Component | Value | Ref Range | Performed | Pathologist | | | | | At | Signature | + +-------+ + + + | Salicylate | <4.0 | <30.0 mg/dL | [facility] | | | Level | | | [facility] | | | | | | [...] | + + + + + | [facility] | [address] | [place] | [phone] | | [facility] | | [address] | | | - LABORATORY | | | | + + + + + Ethanol (07/24/2016 4:43 PM PDT) + +-------+ + + + | Component | Value | Ref Range | Performed | Pathologist | | | | | At | Signature | + +-------+ + + + | ALCOHOL, | <5 | <400 mg/dL | [facility] | | | SERUM/PLASM | | | [facility] | | | A | | [...] [address] | [place] | [phone] | | [facility] | | [address] | | | - LABORATORY | | | | + + + + + TSH (07/24/2016 4:43 PM PDT) + + + + + + | Component | Value | Ref Range | Performed | Pathologist | | | | | At | Signature | + + + + + + | TSH | 2.34Comment: All TSH | 0.34 - 5.60 | [facility] | | | | samples are screened | uIU/mL | [facility] | | | | using a 2nd Generation | | MEDICAL | | | | test, and are reflexed | | CENTER - | | | | to a 3rd Generation test | | LABORATORY | | | | if indicated. | | | | + + + + + + + + | Specimen | + + | Blood | + + + + + + + | Performing | Address | City/State/Zipcode | Phone Number | | Organization | | | | + + + + + | [facility] | [address] | [place] | [phone] | | [facility] | | [address] | | | - LABORATORY | | | | + + + + + Comprehensive Metabolic Panel (07/24/2016 4:43 PM PDT) + + + + + [...] + + | K | 3.7 | 3.5 - 5.1 | [facility] | [...] + + + + | CO2 | 25 | 24 - 31 mmol/L | [facility] [...] + + + + | Glucose | 102 | 70 - 109 mg/dL | [facility] | | | | | | [facility] | | | | | | MEDICAL | | | | | | CENTER - | | | | | | LABORATORY | | + + + + + + | BUN | 7 | 7 - 18 mg/dL | [facility] | | | | | | [facility] | | | | | | MEDICAL | | | | | | CENTER - | | | | | | LABORATORY | | + + + + + + | Creatinine | 0.71 | 0.60 - 1.30 | [facility] | | | | | mg/dL | [facility] | | | | | | MEDICAL | | | | | | CENTER - | | | | | | LABORATORY | | + + + + + + | eGFR if not | >60Comment: GLOMERULAR | >=60 | [facility] | | | | FILTRATION | mL/min/1.73m2 | [facility] | | | [facility] | RATE,ESTIMATED | | MEDICAL | | | | mL/min/1.00v4Gnyh than | | CENTER - | | [...] + + + + | Calcium | 9.4 | 8.3 - 10.5 | [facility] | | | | | mg/dL | [facility] | | | | | | MEDICAL | | | | | | CENTER - | | | | | | LABORATORY | | + + + + + + | Albumin | 3.6 | 3.2 - 5.0 g/dL | [facility] | | | | | | [facility] | | | | | | MEDICAL | | | | | | CENTER - | | | | | | LABORATORY | | + + + + + + | Bilirubin | 0.9Comment: This is an | 0.1 - 1.5 [...] + + + + | Total | 5.8 (L) | 6.0 - 7.8 g/dL | [facility] | | | Protein | | | [facility] | | | | | | MEDICAL | | | | | | CENTER - | | | | | | LABORATORY | | + + + + + + | AST | 21Comment: This is an | 10 - 42 [...] + + + + | ALT | 23Comment: This is an | 6 - 45 [...] + + + + | Alkaline | 44Comment: This is an | 40 - 110 [...] + + + + | Globulin | 2.2 | 2.1 - 3.8 g/dL | [facility] [...] + + + + | BUN/Creatin | 9.9 | | [facility] | | | ine [...] + | [facility] | [address] | [place] | [phone] | | [facility] | | [address] | | | - LABORATORY | | | | + + + + + CBC w/ Auto Differential (07/24/2016 4:43 PM PDT) + + + + + + | Component | Value | Ref Range | Performed | Pathologist | | | | | At | Signature | + + + + + + | WBC | 9.3 | 4.0 - 11.0 K/uL | [facility] | | | | | | [facility] | | | | | | MEDICAL | | | | | | CENTER - | | | | | | LABORATORY | | + + + + + + | RBC | 4.66 | 3.70 - 5.20 | [facility] | | | | | M/uL | [facility] | | | | | | MEDICAL | | | | | | CENTER - | | | | | | LABORATORY | | + + + + + + | Hemoglobin | 14.1 | 11.5 - 16.0 | [facility] | | | | | g/dL | [facility] | | | | | | MEDICAL | | | | | | CENTER - | | | | | | LABORATORY | | + + + + + + | Hematocrit | 40.9 | 34.0 - 47.0 % | [facility] | | | | | | [facility] | | | | | | MEDICAL | | | | | | CENTER - | | | | | | LABORATORY | | + + + + + + | MCV | 87.8 | 83.0 - 101.0 fL | [facility] | | | | | | [facility] | | | | | | MEDICAL | | | | | | CENTER - | | | | | | LABORATORY | | + + + + + + | MCH | 30.3 | 28.0 - 35.0 pg | [facility] [...] + + + + | RDW-CV | 13.2 | <15.0 % | [facility] | | | | | | [facility] | | | | | | MEDICAL | | | | | | CENTER - | | | | | | LABORATORY | | + + + + + + | Platelet | 284 | 140 - 440 K/uL | [facility] | | | Count | | | [facility] | | | | | | MEDICAL | | | | | | CENTER - | | | | | | LABORATORY | | + + + + + + | MPV | 7.7 | fL | [facility] | | | | | | [facility] | | | | | | MEDICAL | | | | | | CENTER - | | | | | | LABORATORY | | + + + + + + | % | 70.1 | 45.0 - 82.0 % | [facility] | | | Neutrophils | | | [facility] | | | | | | MEDICAL | | | | | | CENTER - | | | | | | LABORATORY | | + + + + + + | % | 19.2 (L) | 20.0 - 45.0 % | [facility] | | | Lymphocytes | | | [facility] | | | | | | MEDICAL | | | | | | CENTER - | | | | | | LABORATORY | | + + + + + + | % Monocytes | 8.2 | 4.0 - 12.0 % | [facility] | | | | | | [facility] | | | | | | MEDICAL | | | | | | CENTER - | | | | | | LABORATORY | | + + + + + + | % | 1.6 | 0.0 - 5.0 % | [facility] | | | Eosinophils | | | [facility] | | | | | | MEDICAL | | | | | | CENTER - | | | | | | LABORATORY | | + + + + + + | % Basophils | 0.9 | 0.0 - 1.0 % | [facility] | | | | | | [facility] | | | | | | MEDICAL | | | | | | CENTER - | | | | | | LABORATORY | | + + + + + + | Absolute | 6.50 | 1.80 - 8.50 | [facility] | | | Neutrophils | | K/uL | [facility] | | | | | | MEDICAL | | | | | | CENTER - | | | | | | LABORATORY | | + + + + + + | Absolute | 1.80 | 0.60 - 3.20 | [facility] | | | Lymphocytes | | K/uL | [facility] | | | | | | MEDICAL | | | | | | CENTER - | | | | | | LABORATORY | | + + + + + + | Absolute | 0.80 | 0.00 - 1.00 | [facility] | | | Monocytes | | K/uL | [facility] | | | | | | MEDICAL | | | | | | CENTER - | | | | | | LABORATORY | | + + + + + + | Absolute | 0.20 [...] [address] | [place] | [phone] | | [facility] | | [address] | | | - LABORATORY | | | | + + + + + ECG 12 lead (07/24/2016 4:39 PM PDT) + + + + + + | Component | Value | Ref Range | Performed | Pathologist | | | | | At | Signature | + + + + + + | VENTRICULAR | 81 | BPM | [facility] | | | RATE EKG | | | | | + + + + + + | ATRIAL RATE | 81 | BPM | [facility] | | + + + + + + | P-R | 152 | ms | [facility] | | | INTERVAL | | | | | + + + + + + | QRS | 86 | ms | [facility] | | | DURATION | | | | | + + + + + + | Q-T | 370 | ms | [facility] | | | INTERVAL | | | | | + + + + + + | Q-T | 429 | ms | [facility] | | | INTERVAL | | | | | | (CORRECTED) | | | | | + + + + + + | P WAVE AXIS | 37 | degrees | [facility] | | + + + + + + | QRS AXIS | 47 | degrees | [facility] | | + + + + + + | T AXIS | 35 | degrees | [facility] | | + + + + + + | INTERPRETAT | Normal sinus | | [facility] | | | ION TEXT | rhythmNormal ECGNo | | | | | | previous ECGs | | | | | | availableConfirmed by | | | | | | CATALINO HARKINS MD ([id number]) | | | | | | on 07/25/2016 7:13:09 AM | | | | + + [...] | Diagnosis | + + | Acute exacerbation of psychosis (HCC) - Primary | + + | Severe episode of recurrent major depressive disorder, with psychotic features (HCC) | + + | Methamphetamine abuse (HCC) 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, unspecified | + + | Mild tetrahydrocannabinol (THC) abuse | + + documented in this encounter Administered Medications + +--------+ +-------+------+------+ | Medication Order | MAR | Action | Dose | Rate | Site | | | Action | Date | | | | + +--------+ +-------+------+------+ | chlorproMAZINE (THORAZINE) | Given | 07/24/20 | 50 mg | | | | tablet 50 mg 50 mg, Oral, ONCE, | | 16 8:12 | | | | | Krissy 07/24/16 at 2009, For 1 dose | | PM PDT | | | | + +--------+ +-------+------+------+ +---+---+ | | | +---+---+ + +-------+ +------+---+---+ | LORazepam (ATIVAN) tablet 1 mg | Given | 07/24/20 | 1 mg | | | | 1 mg, Oral, ONCE, Thu07/24/16 at | | 16 3:13 | | | | | 1505, For 1 dose | | PM PDT | | | | + +-------+ +------+---+---+ +---+---+ | | | +---+---+ + +-------+ +------+---+---+ | LORazepam (ATIVAN) tablet 1 mg | Given | 07/24/20 | 1 mg | | | | 1 mg, Oral, ONCE, Thu07/24/16 at | | 16 7:09 | | | | | 1910, For 1 dose | | PM PDT | | | | + +-------+ +------+---+---+ +---+---+ | | | +---+---+ + +-------+ +--------+---+---+ | OLANZapine zydis (zyPREXA | Given | 07/24/20 | 7.5 mg | | | | ZYDIS) disintegrating tablet 7.5 | | 16 3:13 | | | | | mg 7.5 mg, Oral, ONCE, Krissy | | PM PDT | | | | | 07/24/16 at 1505, For 1 dose | | | | | | + +-------+ +--------+---+---+ +---+---+ | | | +---+---+ + +-------+ +--------+---+---+ | OLANZapine zydis (zyPREXA | Given | 07/24/20 | 7.5 mg | | | | ZYDIS) disintegrating tablet 7.5 | | 16 7:09 | | | | | mg 7.5 mg, Oral, ONCE, Krissy | | PM PDT | | | | | 07/24/16 at 1910, For 1 dose | | | | | | + +-------+ +--------+---+---+ +---+---+ | | | +---+---+ documented in this encounter"
--- OUTSIDE RECORDS SUMMARY | ~2019-12-09 | XMS | Clinical Summary ---
Demographics + + + | Address | [address] | | | [place] [address] | + + + | Home Phone [...] [place] | | | | | [address] | | + + + + + | Vanesa Shukla | ECON | [place] | | | | | [address] | | + + + + + Care Team Providers + +------+ + | Care Reading Aide Name | Role | Phone | + +------+ + | Mulu Mendez | PCP | | + +------+ + Allergies + + + + + + | Active Allergy | Reactions | Severity | Noted | Comments | | | | | Date | | + + + + + + | Metoclopramide | Anxiety | Low | 02/24/20 | | | | | | 16 | | + + + + + + | Topiramate | Anxiety | Low | 10/12/20 | | | | | | 19 | | + + + + + + Medications + + + +---------+------+------+-------+ | Medication | Sig | Dispensed | Refills | Star | End | Statu | | | | | | t | Date | s | | | | | | Date | | | + + + +---------+------+------+-------+ | prazosin | take 1 capsule by | | 0 | 08/2 | | Activ | | (MINIPRESS) 1 mg | mouth at bedtime | | | 06/18 | | e | | capsule | | | | 19 | | | + + + +---------+------+------+-------+ | lamoTRIgine | take 1/2 tablet by | | 0 | 11/0 | | Activ | | (LAMICTAL) 100 mg | mouth once daily for | | | 720 | | e | | tablet | 7 days then take 1 | | | 19 | | | | | tablet... (REFER TO | | | | | | | | PRESCRIPTION | | | | | | | | NOTES). | | | | | | + + + +---------+------+------+-------+ | busPIRone (BUSPAR) | take 1 tablet by | | 0 | 07/2 | | Activ | | 7.5 MG tablet | mouth twice a day | | | 08/19 | | e | | | | | | 19 | | | + + + +---------+------+------+-------+ | SUMAtriptan | TAKE 1 TABLET BY | | 0 | 12/2 | | Activ | | (IMITREX) 100 mg | MOUTH TWICE DAILY | | | 820 | | e | | tablet | NEEDED FOR MIGRAINE | | | 18 | | | + + + +---------+------+------+-------+ | gabapentin | Take 1 capsule by | 60 | 0 | 09/30 | | Activ | | (NEURONTIN) 100 mg | mouth 2 times daily. | capsule | | 02/16 | | e | | capsuleIndications: | | | | 19 | | | | Bilateral carpal | | | | | | | | tunnel syndrome | | | | | | | + + + +---------+------+------+-------+ Active Problems + + + | Problem | Noted Date | + + + | Allergic rhinitis | 04/26/2004 | + + + + + | Overview: Overview: | | Dx name changed by system update 08/21/2017 | + + + + + | Calculus of kidney | 04/26/2004 | + + + | Depressive disorder, not elsewhere classified | 04/26/2004 | + + + | Tobacco use disorder | 04/26/2004 | + + + Encounters +--------+ + + + + | Date | Type | Specialty | Care Team | Description | +--------+ + + + + | 10/17/ | Telephone | Primary Care | Mulu Mendez, | Lab Results | | 2018 | | | IT SOLUTIONS SALES CONSULTANT | | +--------+ + + + + | 10/13/ | Telephone | Primary Care | Mulu Mendez, | Lab Results | | 2018 | | | IT SOLUTIONS SALES CONSULTANT | | +--------+ + + + + | 10/12/ | Office | Primary Care | Mulu Mendez, | Bilateral carpal | | 2018 | Visit | | IT SOLUTIONS SALES CONSULTANT | tunnel syndrome | | | | | | (Primary Dx); | | | | | | Multiple thyroid | | | | | | nodules; Lower | | | | | | abdominal pain | +--------+ + + + + from Last 3 Months Immunizations + + + + | Name | Administration Dates | Next Due | + + + + | INFLUENZA PF | 09/04/2018, 10/07/2016 | | | TRIVALENT(PED/ADOL/A | | | | LISETTE)TAMIKO | | | + + + + | INFLUENZA TRIV | 12/25/2004 | | | W/PRES(PED/ADOL/ADUL | | | | T),MULTIDOSE | | | + + + + | INFLUENZA, | 12/25/2004 | | | UNSPECIFIED | | | | FORMULATION | | | + + + + Family History + + +------+ + | Medical History | Relation | Name | Comments | + + +------+ + | Asthma | Father | | | + + +------+ + | High blood pressure | Father | | | + + +------+ + | Sleep apnea | Father | | | + + +------+ + | Substance abuse | Father | | | + + +------+ + | Cancer | Maternal | | Colon | | | Grandmoth | | | | | er | | | + + +------+ + | Diabetes | Mother | | | + + +------+ + | High blood pressure | Mother | | | + + +------+ + | Thyroid disease | Sister | | | + + +------+ + + +------+--------+ + | Relation | Name | Status | Comments | + +------+--------+ + | Father | | | | + +------+--------+ + | Maternal Grandmother | | | | + +------+--------+ + | Mother | | | | + +------+--------+ + | Sister | | | | + +------+--------+ + Social History + +-------+ +--------+------+ | [...] recent travel history available. | + + Last Filed Vital Signs + + + [...] | | + + + + + Plan of Treatment + + + + + | Health Maintenance | Due Date | Last Done | Comments | + + + + + | Vaccine: | | | | | Pneumococcal 19-64 | 6 | | | | (1 of 1 - PPSV23) | | | | + + + + + | Vaccine: | | | | | Dtap/Tdap/Td (1 - | 1 | | | | Tdap) | | | | + + + + + | Cervical Cancer | | | | | Screening (Pap) | 0 | | | + + + + + | Vaccine: Influenza | | 09/04/2018, 10/07/2016, | | | (#1) | 9 | 12/25/2004, Additional history | | | | | exists | | + + + + + | Statin Therapy | | | | | (optimal intensity) | 9 | | | + + + + + Procedures + +--------+ + + + | Procedure Name | Priori | Date/Time | Associated Diagnosis | Comments | | | ty | | | | + +--------+ + + + | CBC WITH | Routin | 10/12/2019 | Lower abdominal | Results for this | | DIFFERENTIAL | e | 4:41 PM | pain | procedure are in the | | | | PST | | results section. | + +--------+ + + + | URINALYSIS WITH | Routin | 10/12/2019 | Lower abdominal | Results for this | | MICROSCOPIC WITH | e | 4:41 PM | pain | procedure are in the | | CULTURE IF INDICATED | | PST | | results section. | + +--------+ + + + | TSH | Routin | 10/12/2019 | Multiple thyroid | Results for this | | | e | 4:41 PM | nodules | procedure are in the | | | | PST | | results section. | + +--------+ + + + | T4, FREE | Routin | 10/12/2019 | Multiple thyroid | Results for this | | | e | 4:41 PM | nodules | procedure are in the | | | | PST | | results section. | + +--------+ + + + | T3, FREE | Routin | 10/12/2019 | Multiple thyroid | Results for this | | | e | 4:41 PM | nodules | procedure are in the | | | | PST | | results section. | + +--------+ + + + | COMPREHENSIVE | Routin | 10/12/2019 | Lower abdominal | Results for this | | METABOLIC PANEL | e | 4:41 PM | pain | procedure are in the | | | | PST | | results section. | + +--------+ + + + from Last 3 Months Results Urinalysis with Microscopic with Culture if [...] - 1.030 | [facility] | | | [place] | | | [facility] | | | [...] + + + + + | [facility] | [address] | [place] [address] | [phone] | | [facility] | | | | + + + + + CBC with Differential (10/12/2019 4:41 PM PST) + + + + + + | Component | Value | Ref Range | Performed | Pathologist | | | | | At | Signature | + + + + + + | WBC | 10.5 (H) | 4.3 - 10.4 K/uL | [facility] | | | | | [facility] | | | | | [facility] | | + + + + + + | RBC | 4.91 | 4.12 - 5.30 | [facility] | | | | | M/uL | [facility] | | | | | | [facility] | | + + + + + + | Hemoglobin | 15.0 | 12.4 - 15.7 | [facility] | | | | | g/dL | [facility] | [facility] | [facility] | | | | | | [facility]ATORY | | + + + + + + | Hematocrit | 43.8 | 37.7 - 47.0 % | [facility] | | | | | | [facility] | | | | | | [facility] | | + + + + + + | MCV | 89.2 | 82.0 - 97.0 fL | [facility] | | | | | | [facility] | | | | | | [facility] | | + + + + + + | MCH | 30.5 | 27.1 - 32.3 pg | [facility] | | | | | [facility] | | | | | | [facility] | | + + + + + + | MCHC | 34.2 | 32.0 - 36.9 | [facility] | | | | | g/dL | [facility] | | | | | | [facility]ORY | | + + + + + + | RDW-CV | 13.1 | 0.0 - 17.0 % | [facility] | | | | | | [facility] | | | | | | [facility] | | + + + + + + | Platelet | 296 | 150 - 450 K/uL | [facility] | | | Count | | | [facility] | | | | [facility] | | | | | | LABORATORY | | + + + + + + | MPV | 10.8 | 9.4 - 12.3 fL | [facility] | | | | | | [facility] | | | | | | [facility]ORY | | + + + + + + | % | 74.3 | 42.0 - 76.0 % | [facility] | | | Neutrophils | | | [facility] | [facility] | | | | | | LAB[facility]ATORY | | + + + + + + | % | 18.3 (L) | 20.0 - 40.0 % | [facility] | | | Lymphocytes | | | [facility] | [facility] | | | | | | LAB[facility]ATORY | | + + + + + + | % Monocytes | 6.0 | 3.0 - 13.0 % | [facility] | | | | | | [facility] | | [facility] | | | | | | [facility] | | + + + + + + | % | 0.7 | 0.0 - 7.0 % | [facility] | | | Eosinophils | | | [facility] | | | | | | [facility]ORY | | + + + + + + | % Basophils | 0.3 | 0.0 - 2.0 % | [facility] | | | | | | [facility] | | [facility] | | | | | | [facility] | | + + + + + + | % Immature | 0.4 | 0.0 - 0.5 % | [facility] | | | Granulocyte | | | [facility] | | | s | | | [facility]OSPITAL | | | | | | LABORATORY | | + + + + + + | Absolute | 7.78 | 2.50 - 8.50 | [facility] | | | Neutrophils | | K/uL | [facility] | | | | | | [facility] | | + + + + + + | Absolute | 1.91 | 1.00 - 3.80 | [facility] | | | Lymphocytes | | K/uL | [facility] | | | | | | [facility] | | + + + + + + | Absolute | 0.63 | 0.00 - 0.80 | [facility] | | | Monocytes | | K/uL | [facility] | | | | | | [facility] | | + + + + + + | Absolute | 0.07 | 0.00 - 0.70 | [facility] | | | Eosinophils | | K/uL | [facility] | | | | | | [facility]ORY | | + + + + + + | Absolute | 0.03 | 0.00 - 0.20 | [facility] | | | Basophils | | K/uL | [facility] | [facility] | | | | | | [facility]ORY | | + + + + + + | Absolute | 0.04 | 0.00 - 0.15 | [facility] | | | Immature | | K/uL | [facility] | | | Granulocyte | | | HOSPITAL | | | s | | | LABORATORY | | + + + + + + | % nRBC | 0 | <=0 per 100 | [facility] | | | | | WBCs | [facility] | | | | [facility] | | | | | | LAB[facility]ATORY | | + + + + + + | Absolute | 0.00 | 0.00 - 0.01 | [facility] | | | nRBC | | K/uL | [facility] | | | | | [...] + + + + + | [facility] | [address] | [place] [address] | [phone] | | HOSPITAL LAB[facility] | | | [...] | | | Diagnostics [facility] | | DIAGNOSTICS | | | | Dorota Sullivan | | - [facility] | | | | Rocio Capps, Ph.D., | | [place] | | | | Student Worker | | | | | | [address] [facility] | | | | | | [place] [address] | | | | | | LILI #[id number] | | | | + + + + + + + + | Specimen | + + | Blood | + + + + + + + | Performing | Address | City/State/Zipcode | Phone Number | | Organization | | | | + + + + + | REFERENCE LAB | [address] [facility] | [place], [place] | | | [facility] - | | [address] | | | [facility] | | [...] + + + + + | [facility] | [address] | [place] [address] | [phone] | | HOSPITAL LAB[facility]ORY | | | [...] + + + + + | [facility] | [address] | [place] [address] | [phone] | | [facility] | | | | | [facility] | | | | + [...] | mL/min/1.73m2 | [facility] | | | [facility] | RATE,ESTIMATED | | HOSPITAL | | | | mL/min/1.04b6Hgdy than | | LABORATORY | | | [...] + + + + + | [facility] | [address] | [place] [address] | [phone] | | HOSPITAL LAB[facility] | | | | + + + + + from Last 3 Months Insurance + +--------+ +--------+ +---------+--------+ | Payer | Benefi | Subscriber | Effect | Phone | Address | Type | | | t Plan | ID | donal | | | | | | / | | Dates | | | | | | Group | | | | | | + +--------+ +--------+ +---------+--------+ | [employer] | MOD[employer] | [id number] | | [phone] | | Medica | | MEDICAID HMO | HEALTH | | 016-Pr | 1 | | id | | | MDCD | | esent | | | | | | [place] | | | | | | + +--------+ +--------+ +---------+--------+ | [employer] | [employer] | [id number] | 10/12/ | [phone] | | Medica | | MEDICAID HMO | HEALTH | | 2019-P | 1 | | id | | | MDCD | | resent | | | | | | [place] | | | | | | + +--------+ +--------+ +---------+--------+ + +--------+ +--------+ + + | Guarantor Name | Accoun | Relation to | Date | Phone | Billing Address | | | t Type | Patient | of | | | | | | | | | | + +--------+ +--------+ + + | Olive Allan | Person | Self | [birth year] | [address] | | | al/Fam | | 1979 | [phone] | [place], [place] | | | j[place]iel | | | 5 (Home) | [address] | + +--------+ +--------+ + + | Candace Allanclyde Beavers | Person | Self | [birth year] | [address] | | | al/Fam | | 1979 | [phone] | [place], [place] | | | [place] | | | [address] ([place]) | [address] | + +--------+ +--------+ + + Advance Directives + + + + + | Type | Date Recorded | Patient | Explanation | | | | Circular Shear Operator | | + + + + + | Power of | | | | | Community Development Coordinator | | | | + + + + + | Power of | | | | | Community Development Coordinator | | | | + + + + + | Advance | 02/24/2016 7:32 | | | | Directive | PM | | | + + + + + | Advance | | | | | Directive | | | | + + + + +
--- OUTSIDE RECORDS SUMMARY | ~2019-12-09 | XMS | Encounter Summary ---
Demographics + + + | Address | [address] | | | [place] [address] | + + + | Home Phone [...] [place] | | | | | [address] | | + + + + + | Vanesa Shukla | ECON | [place] | | | | | [address] | | + + + + + Care Team Providers + +------+ + | Care Material Distributor Name | Role | Phone | + +------+ + PCP | Unavailable | + +------+ + Encounter Details +--------+ + + + + | Date | Type | Department | Care Team | Description | +--------+ + + + + | 09/23/ | Hospital | [facility] | | | | 2008 | Encounter | [facility] | | | | | | [facility] [address] | | | | | | [place], | | | | | | [place] [address] | | | | | | [phone] | | | +--------+ + + + [...]
--- OUTSIDE RECORDS SUMMARY | ~2019-12-09 | XMS | Encounter Summary ---
Demographics + + + | Address | [address] | | | [place] [address] | + + + | Home Phone | | + + + | Preferred Language | Unknown | + + + | Marital Status | Single | + + + | Jewish Affiliation | Unknown | + + + | Race | Unknown | + + + | Ethnic Group | Unknown | + + + Author + + + | Author | [facility] | | | and [place] | + + + | Organization | [facility] | | | and [place] | + + + | Address | Unknown | + + + | Phone | Unavailable | + + + Support + + + + + | Name | Relationship | Address | Phone | + + + + + | Vanesa Shukla | ECON | [place] | | | | | [address] | | + + + + + | Vanesa Shukla | ECON | [place] | | | | | [address] | | + + + + + Care Team Providers + +------+ + | Care Band Instrument Maker Name | Role | Phone | + +------+ + PCP | Unavailable | + +------+ + Encounter Details +--------+ + + + + | Date | Type | Department | Care Team | Description | +--------+ + + + + | 08/01/ | Hospital | [facility] | Carlos, Sahil Daniel, | | | 2011 | Encounter | MED CTR EMERGENCY | MD [address] | | | | | CENTER [address] | [facility] [place] | | | | | [place], [place] | [place] [address] | | | | | [address] | [phone] | | | | | [phone] | | | +--------+ + + + [...]
--- OUTSIDE RECORDS SUMMARY | ~2019-12-09 | XMS | Encounter Summary ---
Demographics + + + | Address | [address] | | | [place] [address] | + + + | Home Phone | | + + + | Preferred Language | Unknown | + + + | Marital Status | Single | + + + | Zoroastrianism Affiliation | Unknown | + + + | Race | Unknown | + + + | Ethnic Group | Unknown | + + + Author + + + | Author | [facility] | | | and [place] | + + + | Organization | [facility] | | | and [place] | + + + | Address | Unknown | + + + | Phone | Unavailable | + + + Support + + + + + | Name | Relationship | Address | Phone | + + + + + | Vanesa Shukla | ECON | [place] | | | | | [address] | | + + + + + | Vanesa Shukla | ECON | [place] | | | | | [address] | | + + + + + Care Team Providers + +------+ + | Care Utility Aircrewman Name | Role | Phone | + [...] + + | 02/23/ | Emergency | [facility] | Quinn Galarza, | Sprain of | | 2015 | | MED CTR EMERGENCY | MD [address] | calcaneofibular | | | | CENTER [address] | [place], [place] | ligament of left | | | | [place], [place] | [id number] | ankle, initial | | | | [address] | | encounter (Primary | | | | [phone] | Doc Forbes, | Dx) | | | | | MD [address] | | | | | | [place], [place] | | | | | | [address] | | | | | | | [...]
--- OUTSIDE RECORDS SUMMARY | ~2019-12-09 | XMS | Encounter Summary ---
Demographics + + + | Address | [address] | | | [place] [address] | + + + | Home Phone | | + + + | Preferred Language | Unknown | + + + | Marital Status | Single | + + + | Hindu Affiliation | Unknown | + + + | Race | Unknown | + + + | Ethnic Group | Unknown | + + + Author + + + | Author | [facility] | | | and [place] | + + + | Organization | [facility] | | | and [place] | + + + | Address | Unknown | + + + | Phone | Unavailable | + + + Support + + + + + | Name | Relationship | Address | Phone | + + + + + | Vanesa Shukla | ECON | [place] | | | | | [address] | | + + + + + | Vanesa Shukla | ECON | [place] | | | | | [address] | | + + + + + Care Team Providers + +------+ + | Care Collection Technician Name | Role | Phone | + +------+ + PCP | Unavailable | + +------+ + Encounter Details +--------+ + + + + | Date | Type | Department | Care Team | Description | +--------+ + + + + | 10/29/ | Hospital | [facility] | Nolberto Holm | | | 2000 | Encounter | MED CTR EMERGENCY | MD [address] | | | | | [place] [address] | [facility] | | | | | [place], [place] | [place] [address] | | | | | [address] | [phone] | | | | | [phone] | | | +--------+ + + + [...]
--- OUTSIDE RECORDS SUMMARY | ~2019-12-09 | XMS | Encounter Summary ---
Demographics + + + | Address | [address] | | | [place] [address] | + + + | Home Phone | | + + + | Preferred Language | Unknown | + + + | Marital Status | Single | + + + | Religion Affiliation | Unknown | + + + | Race | Unknown | + + + | Ethnic Group | Unknown | + + + Author + + + | Author | [facility] | | | and [place] | + + + | Organization | [facility] | | | and [place] | + + + | Address | Unknown | + + + | Phone | Unavailable | + + + Support + + + + + | Name | Relationship | Address | Phone | + + + + + | Vanesa Shukla | ECON | [place] | | | | | [address] | | + + + + + | Vanesa Shukla | ECON | [place] | | | | | [address] | | + + + + + Care Team Providers + +------+ + | Care Lining Cleaner Name | Role | Phone | + +------+ + PCP | Unavailable | + +------+ + Encounter Details +--------+ + + + + | Date | Type | Department | Care Team | Description | +--------+ + + + + | 09/06/ | Hospital | [facility] | Nolberto Holm | | | 2008 | Encounter | MED CTR EMERGENCY | MD [address] | | | | | [facility] [address] | [facility] | | | | | [place], [place] | [place] [address] | | | | | [address] | [phone] | | | | | [phone] | | | +--------+ + + + [...]
--- OUTSIDE RECORDS SUMMARY | ~2019-12-09 | XMS | Encounter Summary ---
Demographics + + + | Address | [address] | | | [place] [address] | + + + | Home Phone | | + + + | Preferred Language | Unknown | + + + | Marital Status | Single | + + + | Zoroastrianism Affiliation | Unknown | + + + | Race | Unknown | + + + | Ethnic Group | Unknown | + + + Author + + + | Author | [facility] | | | and [place] | + + + | Organization | [facility] | | | and [place] | + + + | Address | Unknown | + + + | Phone | Unavailable | + + + Support + + + + + | Name | Relationship | Address | Phone | + + + + + | Vanesa Shukla | ECON | [place] | | | | | [address] | | + + + + + | Vanesa Shukla | ECON | [place] | | | | | [address] | | + + + + + Care Team Providers + +------+ + | Care Director Child Development Center Name | Role | Phone | + +------+ + PCP | Unavailable | + +------+ + Encounter Details +--------+ + + + + | Date | Type | Department | Care Team | Description | +--------+ + + + + | 06/16/ | Hospital | [facility] | | | | 1993 | Encounter | MED CTR XRAY [address] | | | | | | [place] | | | | | | [place] [address] | | | | | | [phone] | | | +--------+ + + + [...]
--- OUTSIDE RECORDS SUMMARY | ~2019-12-09 | XMS | Clinical Summary ---
Demographics + + + | Address | [address] | | | [place] [address] | + + + | Home Phone | | + + + | Preferred Language | Unknown | + + + | Marital Status | Single | + + + | Catholic Affiliation | Unknown | + + + | Race | Unknown | + + + | Ethnic Group | Unknown | + + + Author + + + | Author | [facility] | | | and [place] | + + + | Organization | [facility] | | | and [place] | + + + | Address | Unknown | + + + | Phone | Unavailable | + + + Support + + + + + | Name | Relationship | Address | Phone | + + + + + | Vanesa Shukla | ECON | [place] | | | | | [address] | | + + + + + | Vanesa Shukla | ECON | [place] | | | | | [address] | | + + + + + Care Team Providers + +------+ + | Care Automotive Services Manager Name | Role | Phone | [...] Results | | 2018 | | | POLICE SUPERINTENDENT | | +--------+ + + + + | 10/13/ | Telephone | Primary Care | Mulu Mendez, | Lab Results | | 2018 | | | POLICE SUPERINTENDENT | | +--------+ + + + + | 10/12/ | Office | Primary Care | Mulu Mendez, | Bilateral carpal | | 2018 | Visit | | POLICE SUPERINTENDENT | tunnel syndrome | | | | [...] - 1.030 | [facility] | | | [place] | | | [facility] | | | [...] + + | [facility] | [address] | [place] [address] | [phone] | | HOSPITAL LAB[facility]ATORY | | | [...] + + | [facility] | [address] | [place] [address] | [phone] | | HOSPITAL LAB[facility]ATORY | | | [...] | | [place] | | | | Information Security Engineer | | | | | | [address] [facility] | | | | | | [place] [address] | | | | | | LILI #[id number] | | | | + + + + + + + + | Specimen | + + | Blood | + + + + + + + | Performing | Address | City/State/Zipcode | Phone Number | | Organization | | | | + + + + + | REFERENCE LAB | [address] [facility] | [place], [place] | | | [facility] - | | [address] | | | [facility] | | [...] + + | [facility] | [address] | [place] [address] | [phone] | | HOSPITAL LABORATORY | | | [...] | [address] | [place] [address] | [phone] | | [facility] | | | | | [facility] | | | [...] | mL/min/1.73m2 | [facility] | | | MALDIVIAN | RATE,ESTIMATED | | HOSPITAL | | | | mL/min/1.15b8Mdxl than | | LABORATORY | | | [...] + + | [facility] | [address] | [place] [address] | [phone] | | HOSPITAL LABORATORY | | | [...] | [employer] | MOD[employer] | [id number] | | [phone] | | Medica | | MEDICAID HMO | HEALTH | | 016-Pr | 1 | | id | | | MDCD | | esent | | | | | | [place] | | | | | | + +--------+ +--------+ +---------+--------+ | [employer] | [employer] | [id number] | 10/12/ | [phone] | | Medica [...] jadiel | | | 5 (Home) | [phone] | + +--------+ +--------+ + + | Candace Allanclyde Beavers | Person | Self | [birth year] | [address] | | | al/Fam | | 1979 | [phone] | [place], [place] | | | jadiel | | | 5 ([place]) | [phone] | + +--------+ +--------+ + + Advance Directives + + + + + | Type | Date Recorded | Patient | Explanation | | | | Slunk Skinner | | + + + + + | Power of | | | | | Gas Engine Performance Engineer | | | | + + + + + | Power of | | | | | Gas Engine Performance Engineer | | | | + + + + + | Advance | 02/24/2016 7:32 | | | | Directive | PM | | | + + + + + | Advance | | | | | Directive | | | | + + + + +
--- OUTSIDE RECORDS SUMMARY | ~2019-12-09 | XMS | Encounter Summary ---
Demographics + + + | Address | [address] | | | [place] [address] | + + + | Home Phone | | + + + | Preferred Language | Unknown | + + + | Marital Status | Single | + + + | Latter-Day Affiliation | Unknown | + + + | Race | Unknown | + + + | Ethnic Group | Unknown | + + + Author + + + | Author | [facility] | | | and [place] | + + + | Organization | [facility] | | | and [place] | + + + | Address | Unknown | + + + | Phone | Unavailable | + + + Support + + + + + | Name | Relationship | Address | Phone | + + + + + | Vanesa Shukla | ECON | [place] | | | | | [address] | | + + + + + | Vanesa Shukla | ECON | [place] | | | | | [address] | | + + + + + Care Team Providers + +------+ + | Care Weight Control Lecturer Name | Role | Phone | + +------+ + PCP | Unavailable | + +------+ + Encounter Details +--------+ + + + + | Date | Type | Department | Care Team | Description | +--------+ + + + + | 01/28/ | Hospital | [facility] | | | | 2008 | Encounter | MED CTR EMERGENCY | | | | | | CENTER [address] | | | | | | [place] | | | | | | [address] | | | | | | [phone] | | | +--------+ + + + [...]
--- OUTSIDE RECORDS SUMMARY | ~2019-12-09 | XMS | Encounter Summary ---
Demographics + + + | Address | [address] | | | [place] [address] | + + + | Home Phone | | + + + | Preferred Language | Unknown | + + + | Marital Status | Single | + + + | Pentecostal Affiliation | Unknown | + + + [...] [place] | | | | | [address] | | + + + + + | Vanesa Shukla | ECON | [place] | | | | | [address] | | + + + + + Care Team Providers + +------+ + | Care Carbonizer Name | Role | Phone | + +------+ + PCP | Unavailable | + +------+ + Encounter Details +--------+ + + + + | Date | Type | Department | Care Team | Description | +--------+ + + + + | 09/17/ | Hospital | [facility] | | | | 2004 | Encounter | MED CTR XRAY [address] | | | | | | [place] | | | | | | [place] [address] | | | | | | [phone] | | | +--------+ + + + [...]
--- OUTSIDE RECORDS SUMMARY | ~2019-12-09 | XMS | Encounter Summary ---
Demographics + + + | Address | [address] | | | [place] [address] | + + + | Home Phone | | + + + | Preferred Language | Unknown | + + + | Marital Status | Single | + + + | Pentecostal Affiliation | Unknown | + + + | Race | Unknown | + + + | Ethnic Group | Unknown | + + + Author + + + | Author | [facility] | | | and [place] | + + + | Organization | [facility] | | | and [place] | + + + | Address | Unknown | + + + | Phone | Unavailable | + + + Support + + + + + | Name | Relationship | Address | Phone | + + + + + | Vanesa Shukla | ECON | [place] | | | | | [address] | | + + + + + | Vanesa Shukla | ECON | [place] | + | | | | [address] | | + + + + + Care Team Providers + +------+ + | Care Carpet Technician Name | Role | Phone | [...] + | 03/27/ | Emergency | [facility] | Doc Forbes, | Acute cystitis | | 2016 | | MED CTR EMERGENCY | MD [address] | without hematuria | | | | CENTER [address] | [place] | (Primary Dx) | | | | [place] | [id number] | | | | | [address] | | | | | | [phone] | | | +--------+ + + + [...] Care Everywhere.URINARY TRACT I NFECTIONS (UTIS), UNDERSTANDING (SWEDISH)documented in this encounter Medications at Time of [...] | 0.78 | 0.60 - 1.30 | [facility] | | | | | mg/dL | [facility] | | | | | | MEDICAL | | | | | | CENTER - | | | | | | LABORATORY | | + + + + + + | eGFR if not | >60Comment: GLOMERULAR | >=60 | [facility] | | | | FILTRATION | mL/min/1.73m2 | [facility] | | | TURKISH | RATE,ESTIMATED | | MEDICAL | | | | mL/min/1.20u9Exgp than | | CENTER - | | [...] [address] | [place] | [phone] | | [facility] | | [address] | | | - LABORATORY | | [...] + | [address] | [address] | [place], [place] | [phone] | | [facility] | | [address] | | | - LABORATORY | | [...] | 1.010, 1.015, | | | | [place], | | 1.020, 1.025 | | | | POC | | | | | + + + + + + | Lot Number | [id number] | | | | + + + [...] [address] | [place] | [phone] | | [facility] | | [address] | | | - LABORATORY | | [...] - 1.030 | [facility] | | | [place] | | | [facility] | | [...] ST. | [address] | [place] | [phone] | | [facility] | | [address] | | | - LABORATORY | | [...]
--- OUTSIDE RECORDS SUMMARY | ~2019-12-09 | XMS | Encounter Summary ---
Demographics + + + | Address | [address] | | | [place] [address] | + + + | Home Phone | | + + + | Preferred Language | Unknown | + + + | Marital Status | Single | + + + | Spiritism Affiliation | Unknown | + + + | Race | Unknown | + + + | Ethnic Group | Unknown | + + + Author + + + | Author | [facility] | | | and [place] | + + + | Organization | [facility] | | | and [place] | + + + | Address | Unknown | + + + | Phone | Unavailable | + + + Support + + + + + | Name | Relationship | Address | Phone | + + + + + | Vanesa Shukla | ECON | [place] | | | | | [address] | | + + + + + | Vanesa Shukla | ECON | [place] | | | | | [address] | | + + + + + Care Team Providers + +------+ + | Care Director Of Emergency Nursing Name | Role | Phone | + +------+ + PCP | Unavailable | + +------+ + Encounter Details +--------+ + + + + | Date | Type | Department | Care Team | Description | +--------+ + + + + | 12/21/ | Hospital | [facility] | Alfonso Blake MD | | | 2008 | Encounter | MED CTR XRAY [address] | [address] | | | | | [place] | [place], [place] | | | | | [place] [address] | [address] | | | | | [phone] | | | +--------+ + + + [...]
--- OUTSIDE RECORDS SUMMARY | ~2019-12-09 | XMS | Clinical Summary ---
Demographics + + + | Address | [address] | | | [place] [address] | + + + | Home Phone | | + + + | Preferred Language | Unknown | + + + | Marital Status | Unknown | + + + | Quaker Affiliation | Unknown | + + + | Race | Unknown | + + + | Ethnic Group | Unknown | + + + Author + + + | Author | [employer] [facility] (Historical as of | | | 07-16-19) | + + + | Organization | [facility] (Historical as of | | | 07-16-19) | + + + | Address | Unknown | + + + | Phone | Unavailable | + + + Care Team Providers + +------+ + | Care Hardwood Flooring Specialist Name | Role | Phone | [...] +------+-------+ + | MEDICAID | [place] | [id number] | | | [address] | | | [place] | | | | [place] | | | [place] | | | | [address] | | | DISABILITY ATTORNEY | | | | | + +--------+ [...] | 1980 | [phone] | [place] [address] | | | jadiel | | | [phone] | | + +--------+ +--------+ + +"
--- OUTSIDE RECORDS SUMMARY | ~2019-12-09 | XMS | Encounter Summary ---
Demographics + + + | Address | [address] | | | [place] [address] | + + + | Home Phone | | + + + | Preferred Language | Unknown | + + + | Marital Status | Single | + + + | Jew Affiliation | Unknown | + + + | Race | Unknown | + + + | Ethnic Group | Unknown | + + + Author + + + | Author | [facility] | | | and [place] | + + + | Organization | [facility] | | | and [place] | + + + | Address | Unknown | + + + | Phone | Unavailable | + + + Support + + + + + | Name | Relationship | Address | Phone | + + + + + | Vanesa Shukla | ECON | [place] | | | | | [address] | | + + + + + | Vanesa Shukla | ECON | [place] | | | | | [address] | | + + + + + Care Team Providers + +------+ + | Care Osteopathy Doctor Name | Role | Phone | + +------+ + PCP | Unavailable | + +------+ + Encounter Details +--------+ + + + + | Date | Type | Department | Care Team | Description | +--------+ + + + + | 03/12/ | Hospital | [facility] | | | | 2006 | Encounter | MED CTR EMERGENCY | | | | | | CENTER [address] | | | | | | [place] | | | | | | [address] | | | | | | [phone] | | | +--------+ + + + [...]
--- OUTSIDE RECORDS SUMMARY | ~2019-12-09 | XMS | Encounter Summary ---
Demographics + + + | Address | [address] | | | [place] [address] | + + + | Home Phone | | + + + | Preferred Language | Unknown | + + + | Marital Status | Single | + + + | Worship Affiliation | Unknown | + + + | Race | Unknown | + + + | Ethnic Group | Unknown | + + + Author + + + | Author | [facility] | | | and [place] | + + + | Organization | [facility] | | | and [place] | + + + | Address | Unknown | + + + | Phone | Unavailable | + + + Support + + + + + | Name | Relationship | Address | Phone | + + + + + | Vanesa Shukla | ECON | [place] | | | | | [address] | | + + + + + | Vaensa Shukla | ECON | [place] | + | | | | [address] | | + + + + + Care Team Providers + +------+ + | Care Center Machine Set Up Operator Name | Role | Phone | [...] + + | 07/30/ | Emergency | [facility] | Doc Forbes, | Medical clearance | | 2015 | | MED CTR EMERGENCY | [place] [address] [facility] | for psychiatric | | | | [place] [address] | [place], [place] | admission (Primary | | | | [place], [place] | [address] | Dx); Acute psychosis | | | | [address] | | | | | | [phone] | | | +--------+ + + + [...] through Care Everywhere.RIVAS BALDWIN FOR PSYCH ADMISSION (WOLOF)documented in this encounter Medications at Time of [...] + | [facility] | [address] | [place] | [phone] | | [facility] | | [address] | | | - LABORATORY | | [...] | mL/min/1.73m2 | [facility] | | | FRENCH | RATE,ESTIMATED | | MEDICAL | | | | mL/min/1.76e5Bwkx than | | CENTER - | | [...] [address] | [place] | [phone] | | [facility] | | [address] | | | - LABORATORY | | [...] [address] | [place] | [phone] | | [facility] | | [address] | | | - LABORATORY | | | | + + + + + documented in this encounter Visit Diagnoses + + | Diagnosis | + + | Medical clearance for psychiatric admission - Primary | + + | Acute psychosis (HCC) Unspecified psychosis | + + documented in this encounter
--- OUTSIDE RECORDS SUMMARY | ~2019-12-09 | XMS | Encounter Summary ---
Demographics + + + | Address | [address] | | | [place] [address] | + + + | Home Phone | | + + + | Preferred Language | Unknown | + + + | Marital Status | Single | + + + | Episcopalian Affiliation | Unknown | + + + | Race | Unknown | + + + | Ethnic Group | Unknown | + + + Author + + + | Author | [facility] | | | and [place] | + + + | Organization | [facility] | | | and [place] | + + + | Address | Unknown | + + + | Phone | Unavailable | + + + Support + + + + + | Name | Relationship | Address | Phone | + + + + + | Vanesa Shukla | ECON | [place] | | | | | [address] | | + + + + + | Vanesa Shukla | ECON | [place] | | | | | [address] | | + + + + + Care Team Providers + +------+ + | Care Undercover Cop Name | Role | Phone | + +------+ + PCP | Unavailable | + +------+ + Encounter Details +--------+ + + + + | Date | Type | Department | Care Team | Description | +--------+ + + + + | 05/15/ | Hospital | [facility] | Nolberto Holm | | | 1998 | Encounter | MED CTR EMERGENCY | MD Kasi [address] | | | | | [place] [address] | [address] [facility] | | | | | [place], [place] | [place] [address] | | | | | [address] | [phone] | | | | | [phone] | | | +--------+ + + + [...]
--- OUTSIDE RECORDS SUMMARY | ~2019-12-09 | XMS | Encounter Summary ---
Demographics + + + | Address | [address] | | | [place] [address] | + + + | Home Phone [...] [place] | | | | | [address] | | + + + + + | Vanesa Shukla | ECON | [place] | | | | | [address] | | + + + + + Care Team Providers + +------+ + | Care Salesperson Surgical Appliances Name | Role | Phone | + +------+ + PCP | Unavailable | + +------+ + Encounter Details +--------+ + + + + | Date | Type | Department | Care Team | Description | +--------+ + + + + | 05/06/ | Hospital | [facility] | Alfonso Blake MD | | | 2006 | Encounter | MED CTR XRAY [address] | [address] | | | | | [place] | [place], [place] | | | | | [place] [address] | [address] | | | | | [phone] | | | +--------+ + + + [...]
--- OUTSIDE RECORDS SUMMARY | ~2019-12-09 | XMS | Encounter Summary ---
Demographics + + + | Address | [address] | | | [place] [address] | + + + | Home Phone | | + + + | Preferred Language | Unknown | + + + | Marital Status | Single | + + + | Uatsdin Affiliation | Unknown | + + + [...] [place] | | | | | [address] | | + + + + + | Vanesa Shukla | ECON | [place] | | | | | [address] | | + + + + + Care Team Providers + +------+ + | Care Sheet Finisher Name | Role | Phone | + +------+ + PCP | Unavailable | + +------+ + Encounter Details +--------+ + + + + | Date | Type | Department | Care Team | Description | +--------+ + + + + | 10/12/ | Hospital | [facility] | Jesus Espinal | | | 2010 - | Encounter | MED CTR EMERGENCY | MD Miller [address] | | | | | KENNETH [address] | [address] [facility] | | | 10/13/ | | [place], [place] | [place] [address] | | | 2010 | | [address] | [phone] | | | | | [phone] | | | +--------+ + + + [...] + + + + + | [facility] | [address] | [place], [place] | [phone] | | [facility] | | [address] | | | - LABORATORY | | | | + + + + + | [facility] | [address] | [place], [place] | | | [facility] | | [address] | | | - LABORATORY | | [...] + | [facility] | [address] | [place] | [phone] | | [facility] | | [address] | | | - LABORATORY | | | | + + + + + | [facility] | [address] | [place] | | | [facility] | | [address] | | | - LABORATORY | | [...] 9 | 7 - 18 mg/dL | [place] | | | | | | [facility] | | | | | | MEDICAL | | | | | | CENTER - | | | | | | LABORATORY | | + + + + + + | Creatinine | 0.89 | 0.60 - 1.30 | [facility] | | | | | mg/dL | [facility] | | | | | | MEDICAL | | | | | | CENTER - | | | | | | LABORATORY | | + + + + + + | Estimated | >60Comment: For | >60 mL/min/A | [facility] | | | GFR | -Americans, | [...] + | [facility] | [address] | [place] | [phone] | | [facility] | | [address] | | | - LABORATORY | | | | + + + + + | [facility] | [address] | [place], [place] | | | [facility] | | [address] | | | - LABORATORY | | | | + + + + + CT Abdomen Pelvis w Contrast (10/12/2011 9:30 PM PST) + + | Specimen | + + | | + + + + + | Narrative | Performed At | + + + | [facility] Diagnostic Imaging Department | [facility] | | [address] [facility] | [facility] | | CT ABDOMEN AND PELVIS WITH [...] Transcribed Date/Time: 10/13/2011 | | | 09:25 Hadoop Infrastructure Architect: ALBAN <Electronically Signed by Saravanan Sampson | | | MD [place]> 10/13/11 1807 | | + + + + + | Procedure Note | + + | James Godfrey Conversion - 01/06/2014 4:13 PM [facility] | | Diagnostic Imaging Department [address] [place] [address] | | CT ABDOMEN AND PELVIS WITH [...] 07:45 | |Transcribed Date/Time: 10/13/2011 09:25 | |Hadoop Infrastructure Architect: ALBAN | |<Electronically Signed by Saravanan Toledo MD> 10/13/11 1807 | + + + +---------+ + + | Performing | Address | City/State/Zipcode | Phone Number | | Organization | | | | + +---------+ + + | [place] | | | | | [facility] | | | | + +---------+ + + documented in this encounter Visit Diagnoses Not on filedocumented in this encounter"
--- OUTSIDE RECORDS SUMMARY | ~2019-12-09 | XMS | Encounter Summary ---
Demographics + + + | Address | [address] | | | [place] [address] | + + + | Home Phone | | + + + | Preferred Language | Unknown | + + + | Marital Status | Single | + + + | Yazdanism Affiliation | Unknown | + + + | Race | Unknown | + + + | Ethnic Group | Unknown | + + + Author + + + | Author | [facility] | | | and [place] | + + + | Organization | [facility] | | | and [place] | + + + | Address | Unknown | + + + | Phone | Unavailable | + + + Support + + + + + | Name | Relationship | Address | Phone | + + + + + | Vanesa Shukla | ECON | [place] | | | | | [address] | | + + + + + | Vanesa Shukla | ECON | [place] | | | | | [address] | | + + + + + Care Team Providers + +------+ + | Care Layer Up Name | Role | Phone | + +------+ + PCP | Unavailable | + +------+ + Encounter Details +--------+ + + + + | Date | Type | Department | Care Team | Description | +--------+ + + + + | 08/08/ | Hospital | [facility] | | | | 1992 | Encounter | MED CTR EMERGENCY | | | | | | CENTER [address] | | | | | | [place] | | | | | | [address] | | | | | | [phone] | | | +--------+ + + + [...]
--- OUTSIDE RECORDS SUMMARY | ~2019-12-09 | XMS | Encounter Summary ---
Demographics + + + | Address | [address] | | | [place] [address] | + + + | Home Phone [...] + + + | Author | [facility] | | | and [place] | + + + | Organization | [facility] | | | and [place] | + + + | Address | Unknown | + + + | Phone | Unavailable | + + + Support + + + + + | Name | Relationship | Address | Phone | + + + + + | Vanesa Shukla | ECON | [place] | | | | | [address] | | + + + + + | Vanesa Shukla | ECON | [place] | | | | | [address] | | + + + + + Care Team Providers + +------+ + | Care Cv Rn Name | Role | Phone | + +------+ + PCP | Unavailable | + +------+ + Encounter Details +--------+ + + + + | Date | Type | Department | Care Team | Description | +--------+ + + + + | 11/03/ | Hospital | [facility] | | | | 2008 - | Encounter | MED CTR [facility] | | | | | | [facility] [address] | | | | 11/05/ | | [place], | | | | 2008 | | [place] [address] | | | | | | [phone] | | | +--------+ + + + [...]
--- OUTSIDE RECORDS SUMMARY | ~2019-12-09 | XMS | Encounter Summary ---
Demographics + + + | Address | [address] | | | [place] [address] | + + + | Home Phone | | + + + | Preferred Language | Unknown | + + + | Marital Status | Single | + + + | Adventism Affiliation | Unknown | + + + [...] [place] | | | | | [address] | | + + + + + | Vanesa Shukla | ECON | [place] | | | | | [address] | | + + + + + Care Team Providers + +------+ + | Care Manager Analytical Name | Role | Phone | + +------+ + PCP | Unavailable | + +------+ + Encounter Details +--------+ + + + + | Date | Type | Department | Care Team | Description | +--------+ + + + + | 12/27/ | Hospital | [facility] | | | | 2001 | Encounter | MED CTR EMERGENCY | | | | | | CENTER [address] | | | | | | [place] | | | | | | [address] | | | | | | [phone] | | | +--------+ + + + [...]
--- OUTSIDE RECORDS SUMMARY | ~2019-12-09 | XMS | Encounter Summary ---
Demographics + + + | Address | [address] | | | [place] [address] | + + + | Home Phone | | + + + | Preferred Language | Unknown | + + + | Marital Status | Single | + + + | Orthodox Affiliation | Unknown | + + + | Race | Unknown | + + + | Ethnic Group | Unknown | + + + Author + + + | Author | [facility] | | | and [place] | + + + | Organization | [facility] | | | and [place] | + + + | Address | Unknown | + + + | Phone | Unavailable | + + + Support + + + + + | Name | Relationship | Address | Phone | + + + + + | Vanesa Shukla | ECON | [place] | | | | | [address] | | + + + + + | Vanesa Shukla | ECON | [place] | | | | | [address] | | + + + + + Care Team Providers + +------+ + | Care Electric Motors Salesperson Name | Role | Phone | + +------+ + PCP | Unavailable | + +------+ + Encounter Details +--------+ + + + + | Date | Type | Department | Care Team | Description | +--------+ + + + + | 08/22/ | Hospital | [facility] | Layo Medina W, | | | 2007 - | Encounter | MED CTR MED ONC | [address] | | | | | [address] [place] | [place], [place] | | | 08/24/ | | [place] [address] | [address] | | | 2007 | | [phone] | [phone] | | | | | | | | | | | | Yamilex Castellanos MD | | | | | | [address] | | | | | | [place], [place] | | | | | | [address] | | | | | | | [...]
--- OUTSIDE RECORDS SUMMARY | ~2019-12-09 | XMS | Encounter Summary ---
Demographics + + + | Address | [address] | | | [place] [address] | + + + | Home Phone [...] + + + | Author | [facility] | | | and [place] | + + + | Organization | [facility] | | | and [place] | + + + | Address | Unknown | + + + | Phone | Unavailable | + + + Support + + + + + | Name | Relationship | Address | Phone | + + + + + | Vanesa Shukla | ECON | [place] | | | | | [address] | | + + + + + | Vanesa Shukla | ECON | [place] | | | | | [address] | | + + + + + Care Team Providers + +------+ + | Care Research Methodologist Name | Role | Phone | + +------+ + PCP | Unavailable | + +------+ + Encounter Details +--------+ + + + + | Date | Type | Department | Care Team | Description | +--------+ + + + + | 11/03/ | Hospital | [facility] | | | | 2008 - | Encounter | [facility] | | | | | | [facility] [address] | | | | 11/05/ | | [place], | | | | 2008 | | [place] [address] | | | | | | [phone] | | | +--------+ + + + [...]
--- OUTSIDE RECORDS SUMMARY | ~2019-12-09 | XMS | Encounter Summary ---
Demographics + + + | Address | [address] | | | [place] [address] | + + + | Home Phone | | + + + | Preferred Language | Unknown | + + + | Marital Status | Single | + + + | Scientologist Affiliation | Unknown | + + + | Race | Unknown | + + + | Ethnic Group | Unknown | + + + Author + + + | Author | [facility] | | | and [place] | + + + | Organization | [facility] | | | and [place] | + + + | Address | Unknown | + + + | Phone | Unavailable | + + + Support + + + + + | Name | Relationship | Address | Phone | + + + + + | Vanesa Shukla | ECON | [place] | | | | | [address] | | + + + + + | Vanesa Shukla | ECON | [place] | | | | | [address] | | + + + + + Care Team Providers + +------+ + | Care Bioinformatics Analyst Name | Role | Phone | + +------+ + PCP | Unavailable | + +------+ + Encounter Details +--------+ + + + + | Date | Type | Department | Care Team | Description | +--------+ + + + + | 07/13/ | Hospital | [facility] | | | | 2000 | Encounter | MED CTR EMERGENCY | | | | | | CENTER [address] | | | | | | [place] | | | | | | [address] | | | | | | [phone] | | | +--------+ + + + [...]
--- OUTSIDE RECORDS SUMMARY | ~2019-12-09 | XMS | Encounter Summary ---
Demographics + + + | Address | [address] | | | [place] [address] | + + + | Home Phone | | + + + | Preferred Language | Unknown | + + + | Marital Status | Single | + + + | Yazidi Affiliation | Unknown | + + + | Race | Unknown | + + + | Ethnic Group | Unknown | + + + Author + + + | Author | [facility] | | | and [place] | + + + | Organization | [facility] | | | and [place] | + + + | Address | Unknown | + + + | Phone | Unavailable | + + + Support + + + + + | Name | Relationship | Address | Phone | + + + + + | Vanesa Shukla | ECON | [place] | | | | | [address] | | + + + + + | Vanesa Shukla | ECON | [place] | | | | | [address] | | + + + + + Care Team Providers + +------+ + | Care Typesetting Machine Operator/Tender Name | Role | Phone | + +------+ + PCP | Unavailable | + +------+ + Encounter Details +--------+ + + + + | Date | Type | Department | Care Team | Description | +--------+ + + + + | 05/06/ | Hospital | [facility] | Alfonso Blake MD | | | 2006 | Encounter | MED CTR XRAY [address] | | | | | [place] | [place], [place] | | | | | [place] [address] | [address] | | | | | [phone] | | | +--------+ + + + [...]
--- OUTSIDE RECORDS SUMMARY | ~2019-12-09 | XMS | Encounter Summary ---
Demographics + + + | Address | [address] | | | [place] [address] | + + + | Home Phone | | + + + | Preferred Language | Unknown | + + + | Marital Status | Single | + + + | Mormonism Affiliation | Unknown | + + + | Race | Unknown | + + + | Ethnic Group | Unknown | + + + Author + + + | Author | [facility] | | | and [place] | + + + | Organization | [facility] | | | and [place] | + + + | Address | Unknown | + + + | Phone | Unavailable | + + + Support + + + + + | Name | Relationship | Address | Phone | + + + + + | Vanesa Shukla | ECON | [place] | | | | | [address] | | + + + + + | Vanesa Shukla | ECON | [place] | | | | | [address] | | + + + + + Care Team Providers + +------+ + | Care Service Writer Advisor Name | Role | Phone | + +------+ + PCP | Unavailable | + +------+ + Encounter Details +--------+ + + + + | Date | Type | Department | Care Team | Description | +--------+ + + + + | 08/08/ | Hospital | [facility] | | | | 1992 | Encounter | MED CTR EM[facility]Y | | | | | | CENTER [address] | | | | | | [place] | | | | | | [address] | | | | | | [phone] | | | +--------+ + + + [...]
--- OUTSIDE RECORDS SUMMARY | ~2019-12-09 | XMS | Encounter Summary ---
Demographics + + + | Address | [address] | | | [place] [address] | + + + | Home Phone | | + + + | Preferred Language | Unknown | + + + | Marital Status | Single | + + + | Hoahaoism Affiliation | Unknown | + + + | Race | Unknown | + + + | Ethnic Group | Unknown | + + + Author + + + | Author | [facility] | | | and [place] | + + + | Organization | [facility] | | | and [place] | + + + | Address | Unknown | + + + | Phone | Unavailable | + + + Support + + + + + | Name | Relationship | Address | Phone | + + + + + | Vanesa Shukla | ECON | [place] | | | | | [address] | | + + + + + | Vanesa Shukla | ECON | [place] | + | | | | [address] | | + + + + + Care Team Providers + +------+ + | Care Appliance Worker Name | Role | Phone | [...] + + | 07/18/ | Emergency | [facility] | Hunter Herman, | Altered mental | | 2016 | | MED CTR EMERGENCY | [address] | status, unspecified | | | | [place] [address] [facility] | [place], [place] | (Primary Dx); | | | | [place], [place] | [address] | Substance abuse; | | | | [address] | | Acute cystitis | | | | [phone] | | without hematuria | +--------+ + [...] [address] | [place] | [phone] | | [facility] | | [address] | | | - LABORATORY | | [...] [address] | [place] | [phone] | | [facility] | | [address] | | | - LABORATORY | | [...] - 1.030 | [facility] | | | [place] | | | [facility] | | [...] [address] | [place] | [phone] | | [facility] | | [address] | | | - LABORATORY | | [...] + | [facility] [facility] | [address] | [place] | [phone] | | [facility] | | [address] | | | - LABORATORY | | [...] | 0.80 | 0.60 - 1.30 | [facility] | | | | | mg/dL | [facility] | | | | | | MEDICAL | | | | | | CENTER - | | | | | | LABORATORY | | + + + + + + | eGFR if not | >60Comment: GLOMERULAR | >=60 | [facility] | | | | FILTRATION | mL/min/1.73m2 | [facility] | | | BELARUSIAN | RATE,ESTIMATED | | MEDICAL | | | | mL/min/1.71q1Ohsu than | | CENTER - | | [...] [address] | [place] | [phone] | | [facility] | | [address] | | | - LABORATORY | | [...] [address] | [place] | [phone] | | [facility] | | [address] | | | - LABORATORY | | [...]
--- OUTSIDE RECORDS SUMMARY | ~2019-12-09 | XMS | Encounter Summary ---
Demographics + + + | Address | [address] | | | [place] [address] | + + + | Home Phone [...] [place] | | | | | [address] | | + + + + + | Vanesa Shukla | ECON | [place] | | | | | [address] | | + + + + + Care Team Providers + +------+ + | Care Store Keeper Name | Role | Phone | + +------+ + PCP | Unavailable | + +------+ + Encounter Details +--------+ + + + + | Date | Type | Department | Care Team | Description | +--------+ + + + + | 08/01/ | Hospital | [facility] | Carlos, Sahil Daniel, | | | 2011 | Encounter | MED CTR EMERGENCY | MD [address] | | | | | CENTER [address] | [facility] [place] | | | | | [place], [place] | [place] [address] | | | | | [address] | [phone] | | | | | [phone] | | | +--------+ + + + [...]
--- OUTSIDE RECORDS SUMMARY | ~2019-12-09 | XMS | Encounter Summary ---
Demographics + + + | Address | [address] | | | [place] [address] | + + + | Home Phone | | + + + | Preferred Language | Unknown | + + + | Marital Status | Single | + + + | Mandaeism Affiliation [...] [place] | | | | | [address] | | + + + + + | Vanesa Shukla | ECON | [place] | | | | | [address] | | + + + + + Care Team Providers + +------+ + | Care Communications Department Chair Name | Role | Phone | + +------+ + PCP | Unavailable | + +------+ + Encounter Details +--------+ + + + + | Date | Type | Department | Care Team | Description | +--------+ + + + + | 08/06/ | Hospital | [facility] | CarlsoSahil, | | | 2008 | Encounter | MED CTR EMERGENCY | MD [address] | | | | | CENTER [address] | [facility] [place] | | | | | [place], [place] | [place] [address] | | | | | [address] | [phone] | | | | | [phone] | | | +--------+ + + + [...]
--- OUTSIDE RECORDS SUMMARY | ~2019-12-09 | XMS | Encounter Summary ---
Demographics + + + | Address | [address] | | | [place] [address] | + + + | Home Phone | | + + + | Preferred Language | Unknown | + + + | Marital Status | Single | + + + | Orthodox Affiliation | Unknown | + + + | Race | Unknown | + + + | Ethnic Group | Unknown | + + + Author + + + | Author | [facility] | | | and [place] | + + + | Organization | [facility] | | | and [place] | + + + | Address | Unknown | + + + | Phone | Unavailable | + + + Support + + + + + | Name | Relationship | Address | Phone | + + + + + | Vanesa Shukla | ECON | [place] | | | | | [address] | | + + + + + | Vanesa Shukla | ECON | [place] | | | | | [address] | | + + + + + Care Team Providers + +------+ + | Care Disability Liaison Officer Name | Role | Phone | + +------+ + PCP | Unavailable | + +------+ + Encounter Details +--------+ + + + + | Date | Type | Department | Care Team | Description | +--------+ + + + + | 10/29/ | Hospital | [facility] | | | | 2000 | Encounter | MED CTR EMERGENCY | | | | | | CENTER [address] | | | | | | [place] | | | | | | [address] | | | | | | [phone] | | | +--------+ + + + [...]
--- OUTSIDE RECORDS SUMMARY | ~2019-12-09 | XMS | Encounter Summary ---
Demographics + + + | Address | [address] | | | [place] [address] | + + + | Home Phone [...] + + + | Author | [facility] | | | and [place] | + + + | Organization | [facility] | | | and [place] | + + + | Address | Unknown | + + + | Phone | Unavailable | + + + Support + + + + + | Name | Relationship | Address | Phone | + + + + + | Vanesa Shukla | ECON | [place] | | | | | [address] | | + + + + + | Vanesa Shukla | ECON | [place] | | | | | [address] | | + + + + + Care Team Providers + +------+ + | Care Operator Receptionist Name | Role | Phone | + +------+ + PCP | Unavailable | + +------+ + Encounter Details +--------+ + + + + | Date | Type | Department | Care Team | Description | +--------+ + + + + | 03/12/ | Hospital | [facility] | | | | 2006 | Encounter | MED CTR EMERGENCY | | | | | | CENTER [address] | | | | | | [place] | | | | | | [address] | | | | | | [phone] | | | +--------+ + + + [...]
--- OUTSIDE RECORDS SUMMARY | ~2019-12-09 | XMS | Encounter Summary ---
Demographics + + + | Address | [address] | | | [place] [address] | + + + | Home Phone | | + + + | Preferred Language | Unknown | + + + | Marital Status | Single | + + + | Sabianist Affiliation | Unknown | + + + | Race | Unknown | + + + | Ethnic Group | Unknown | + + + Author + + + | Author | [facility] | | | and [place] | + + + | Organization | [facility] | | | and [place] | + + + | Address | Unknown | + + + | Phone | Unavailable | + + + Support + + + + + | Name | Relationship | Address | Phone | + + + + + | Vanesa Shukla | ECON | [place] | | | | | [address] | | + + + + + | Vanesa Shukla | ECON | [place] | | | | | [address] | | + + + + + Care Team Providers + +------+ + | Care Sheeter Waxer Operator Name | Role | Phone | + +------+ + PCP | Unavailable | + +------+ + Encounter Details +--------+ + + + + | Date | Type | Department | Care Team | Description | +--------+ + + + + | 08/04/ | Hospital | [facility] | | | | 1996 | Encounter | MED CTR XRAY [address] | | | | | | [place] | | | | | | [place] [address] | | | | | | [phone] | | | +--------+ + + + [...]
--- OUTSIDE RECORDS SUMMARY | ~2019-12-09 | XMS | Encounter Summary ---
Demographics + + + | Address | [address] | | | [place] [address] | + + + | Home Phone [...] [place] | | | | | [address] | | + + + + + | Vanesa Shukla | ECON | [place] | | | | | [address] | | + + + + + Care Team Providers + +------+ + | Care X Ray Tech Name | Role | Phone | + +------+ + PCP | Unavailable | + +------+ + Encounter Details +--------+ + + + + | Date | Type | Department | Care Team | Description | +--------+ + + + + | 02/15/ | Hospital | [facility] | Nolberto Holm | | | 2003 | Encounter | MED CTR EMERGENCY | MD [place] [address] | | | | | [place] [address] | [facility] | | | | | [place], [place] | [place] [address] | | | | | [address] | [phone] | | | | | [phone] | | | +--------+ + + + [...]
--- OUTSIDE RECORDS SUMMARY | ~2019-12-09 | XMS | Encounter Summary ---
Demographics + + + | Address | [address] | | | [place] [address] | + + + | Home Phone | | + + + | Preferred Language | Unknown | + + + | Marital Status | Single | + + + | Sikh Affiliation | Unknown | + + + [...] [place] | | | | | [address] | | + + + + + | Vanesa Shukla | ECON | [place] | | | | | [address] | | + + + + + Care Team Providers + +------+ + | Care Pipe Recovery Specialist Name | Role | Phone | + +------+ + PCP | Unavailable | + +------+ + Encounter Details +--------+ + + + + | Date | Type | Department | Care Team | Description | +--------+ + + + + | 09/15/ | Hospital | [facility] | Alfonso Blake MD | | | 2007 | Encounter | MED CTR XRAY [address] | | | | | [place] | [place], [place] | | | | | [place] [address] | [address] | | | | | [phone] | | | +--------+ + + + [...]
--- OUTSIDE RECORDS SUMMARY | ~2019-12-09 | XMS | Encounter Summary ---
Demographics + + + | Address | [address] | | | [place] [address] | + + + | Home Phone [...] [place] | | | | | [address] | | + + + + + | Vanesa Shukla | ECON | [place] | | | | | [address] | | + + + + + Care Team Providers + +------+ + | Care Assembler Sandal Parts Name | Role | Phone | + +------+ + | No, Physician | PCP | Unavailable | + +------+ + Reason for Visit + + + | Reason | Comments | + + + | Mental Health | | | Problem | | + + + Encounter Details +--------+ + + + + | Date | Type | Department | Care Team | Description | +--------+ + + + + | 10/19/ | Emergency | [facility] | Nolberto Holm | Psychosis, | | 2018 | | [facility] | MD Kasi [address] | unspecified | | | | CENTER [address] | [address] [place] | psychosis type (HCC) | | | | [place] | [place] [address] | (Primary Dx) | | | | [address] | [phone] | | | | | [phone] | | | | | | | Quinn Galarza MD | | | | | | [address] | | | | | | [place] | | | | | | [phone] | | | | | | | [...] + + + | Blood Pressure | 131/84 | 10/19/2018 7:13 PM | | | | | PST | | + + + + + | Pulse | 109 | 10/19/2018 7:13 PM | | | | | PST | | + + + + + | Temperature | 36.4 C (97.5 F) | 10/19/2018 7:13 PM | | | | | PST | | + + + + + | Respiratory Rate | 18 | 10/19/2018 7:13 PM | | | | | PST | | + + + + + | Oxygen Saturation | 97% | 10/19/2018 7:13 PM | | | | | PST | | + + + + + | Inhaled Oxygen | - | - | | | Concentration | | | | + + + + + | Weight | 85.4 kg (188 lb 4.4 | 10/19/2018 3:32 PM | | | | oz) | PST | | + + + + + | Height | 157.5 cm (5' 2") | 10/19/2018 3:32 PM | | | | | PST | | + + + + + | Body Mass Index | 34.44 | 10/19/2018 3:32 PM | | | | | PST [...] | 10 | 0 | 10/18/20 | | | 1 mg tablet | mouth [...] INFORMATION | GABBY | Routin | | 10/19/2018 8:59 AM | | EXCHANGE | | e | | PST | + +------+--------+ + + documented as of this encounter Procedures + +--------+ + + + | Procedure Name | Priori | Date/Time | Associated Diagnosis | Comments | | | ty | | | | + +--------+ + + + | EXTRA GREEN TOP TUBE | Routin | 10/19/2018 | | Results for this | | | e | 1:25 PM | | procedure are in the | | | | PST | | results section. | + +--------+ + + + | EXTRA GOLD TOP TUBE | Routin | 10/19/2018 | | Results for this | | | e | 1:25 PM | | procedure are in the | | | | PST | | results section. | + +--------+ + + + | CBC WITH | STAT | 10/19/2018 | | Results for this | | DIFFERENTIAL | | 1:25 PM | | procedure are in the | | | | PST | | results section. | + +--------+ + + + | , SERUM, | Add-On | 10/19/2018 | | Results for this | | QUAL | | 1:25 PM | | procedure are in the | | | | PST | | results section. | + +--------+ + + + | TSH | STAT | 10/19/2018 | | Results for this | | | | 1:25 PM | | procedure are in the | | | | PST | | results section. | + +--------+ + + + | ACETAMINOPHEN LEVEL | STAT | 10/19/2018 | | Results for this | | | | 1:25 PM | | procedure are in the | | | | PST | | results section. | + +--------+ + + + | SALICYLATE LEVEL | STAT | 10/19/2018 | | Results for this | | | | 1:25 PM | | procedure are in the | | | | PST | | results section. | + +--------+ + + + | BASIC METABOLIC | STAT | 10/19/2018 | | Results for this | | PANEL | | 1:25 PM | | procedure are in the | | | | PST | | results section. | + +--------+ + + + | DRUGS OF ABUSE, | STAT | 10/19/2018 | | Results for this | | SCREEN, URINE | | 12:42 PM | | procedure are in the | | | | PST | | results section. | + +--------+ + + + | ED INFORMATION | Routin | 10/19/2018 | | | | EXCHANGE | e | 8:59 AM | | | | | | PST | | | + +--------+ + + + +---+--------+ | | | | | Proced | | | ure | | | Note - | | | Mikey, | | | Lab In | | | | | | Hlseve | | | n - | | | | | | 2017 | | | 9:00 | | | AM PST | | [...] | | | FICATI | | | ON?11/ | | | 20/201 | | | 8 | | | 08:55? | | | TAMI, | | | HUGH | | | | | | E?MRN: | | | | | | [id number] | | | [id number] | | | his | | | [...] | | | ent/33 | | | [id number] | | | [id number] | | | [...] | | | Nov | | | 20, | | | 2018 | | | [facility] | | | ence | | | [facility] | | | [facility] [place] | | | [place] | | | Emerge | | | ncy | | | Emerge | | | ncy | | | Nov | | | [...] | | | tion | | | | | | Unspec | | | ified | | | psycho | | | sis | | | not | | | due to | | | a | | | substa | | | nce or | | | known | | | | | | physio | | | logica | | | l | | | condit | | | ion | | | Oct | | | [...] | | -[place] | | | io 3 0 | | | | | | Provid | | | ence | | | St. | | | [facility] | | | Medica | | | l | | | Center | | | 2 0 | | | [facility] | | | St[facility] | | | [facility] | | | y | | | [...] | | | St. | | | [facility] | | | y | | | Hospit | | | al | | | Patien | | | t is | | | curren | | | tly | | | establ | | | ished | | | with | | | St | | | [facility] | | | y | | | [...] St | | | | | | [facility] | | | y | | | [...] | | | britt | | | 4 | | | visits | | | in | | | 60Know | | | n | | | Aliase | | | [...] | +---+--------+ documented in this encounter Results , Serum, Qual (10/19/2018 1:25 PM PST) + + + + + + | Component | Value | Ref Range | Performed | Pathologist | | | | | At | Signature | + + + + + + | hCG Screen, | Negative | Negative | [facility] | | | Serum | | | [facility] | | [...] + | [facility] | [address] | [place] | [phone] | | [facility] | | [address] | | | - LABORATORY | | | | + + + + + TSH (10/19/2018 1:25 PM PST) + + + + + + | Component | Value | Ref Range | Performed | Pathologist | | | | | At | Signature | + + + + + + | TSH | 2.88Comment: This is a | 0.45 - 5.33 | [facility] | | | | third generation TSH | uIU/mL | [facility] | | | | test. | | MEDICAL | | | | [...] ST. | [address] | [place], [place] | [phone] | | [facility] | | [address] | | | - LABORATORY | | | | + + + + + Extra Green Top Tube (10/19/2018 1:25 PM PST) + +-------+ + + + | Component | Value | Ref Range | Performed | Pathologist | | | | | At | Signature | + +-------+ + + + | Extra Green | Done | | [facility] | | | Top Tube | | | [facility] | | [...] [address] | [place] | [phone] | | [facility] | | [address] | | | - LABORATORY | | | | + + + + + Extra Gold Top Tube (10/19/2018 1:25 PM PST) + +-------+ + + + | Component | Value | Ref Range | Performed | Pathologist | | | | | At | Signature | + +-------+ + + + | Extra Gold | Done | | [facility] | | | Top Tube | | | [facility] | | [...] + | [facility] | [address] | [place] | [phone] | | [facility] | | [address] | | | - LABORATORY | | | | + + + + + Acetaminophen Level (10/19/2018 1:25 PM PST) + +-------+ + + + | Component | Value | Ref Range | Performed | Pathologist | | | | | At | Signature | + +-------+ + + + | Acetaminoph | <10 | <10 ug/mL | [facility] | | | en Level | | | [facility] | | | | | | [...] + | [facility] | [address] | [place] | [phone] | | [facility] | | [address] | | | - LABORATORY | | | | + + + + + Salicylate Level (10/19/2018 1:25 PM PST) + +-------+ + + + | Component | Value | Ref Range | Performed | Pathologist | | | | | At | Signature | + +-------+ + + + | Salicylate | <4.0 | <30.0 mg/dL | [facility] | | | Level | | | [facility] | | | | | | [...] ST. | [address] | [place], [place] | [phone] | | [facility] | | [address] | | | - LABORATORY | | | | + + + + + Basic Metabolic Panel (10/19/2018 1:25 PM PST) + + + + + + | Component | Value | Ref Range | Performed | Pathologist | | | | | At | Signature | + + + + + + | Na | 137 | 136 - 149 | [facility] | | | | | mmol/L | [facility] | | | | | | MEDICAL | | | | | | CENTER - | | | | | | LABORATORY | | + + + + + + | K | 3.6 | 3.5 - 5.1 | [facility] | | | | | mmol/L | [facility] | | | | [...] | 22 (L) | 24 - 31 mmol/L | [facility] | | | | | | [facility] | | | | | | MEDICAL | | | | | | CENTER - | | | | | | LABORATORY | | + + + + + + | Anion Gap | 10 | 3 - 16 mmol/L | [facility] | | | | | | [facility] | | | | | | MEDICAL | | | | | | CENTER - | | | | | | LABORATORY | | + + + + + + | Glucose | 96 | 70 - 109 mg/dL | [facility] [...] + + + + | Creatinine | 0.88 | 0.60 - 1.30 | [facility] | [...] | | | FILTRATION | mL/min/1.73m2 | [facility] | | | [place]AR[place] | RATE,ESTIMATED | | MEDICAL | | | | mL/min/1.81q5Cpil than | | CENTER - | | [...] | | | | mg/dL | [facility] | | | | | | MEDICAL | | | | | | CENTER - | | | | | | LABORATORY | | + + + + + + | BUN/Creatin | 8.0 | | [facility] | | | ine Ratio | | | [facility] | | [...] + | [facility] | [address] | [place] | [phone] | | [facility] | | [address] | | | - LABORATORY | | | | + + + + + CBC with Differential (10/19/2018 1:25 PM PST) + + + + + + | Component | Value | Ref Range | Performed | Pathologist | | | | | At | Signature | + + + + + + | WBC | 7.8 | 4.0 - 11.0 K/uL | [facility] | | | | | | [facility] | | | | | | MEDICAL | | | | | | CENTER - | | | | | | LABORATORY | | + + + + + + | RBC | 4.66 | 3.70 - 5.20 | [facility] | | | | | M/uL | [facility] | | | | | | MEDICAL | | | | | | CENTER - | | | | | | LABORATORY | | + + + + + + | Hemoglobin | 13.4 | 11.5 - 16.0 | [facility] | | | | | g/dL | [facility] | | | | | | MEDICAL | | | | | | CENTER - | | | | | | LABORATORY | | + + + + + + | Hematocrit | 40.7 | 34.0 - 47.0 % | [facility] | | | | | | [facility] | | | | | | MEDICAL | | | | | | CENTER - | | | | | | LABORATORY | | + + + + + + | MCV | 87.3 | 83.0 - 101.0 fL | [facility] | | | | | | [facility] | | | | | | MEDICAL | | | | | | CENTER - | | | | | | LABORATORY | | + + + + + + | MCH | 28.8 | 28.0 - 35.0 pg | [facility] | | | | | | [facility] | | | | | | MEDICAL | | | | | | CENTER - | | | | | | LABORATORY | | + + + + + + | MCHC | 32.9 | 32.0 - 36.0 | [facility] | | | | | g/dL | [facility] | | | | | | MEDICAL | | | | | | CENTER - | | | | | | LABORATORY | | + + + + + + | RDW-CV | 14.6 | <15.0 % | [facility] | | | | | | [facility] | | | | | | MEDICAL | | | | | | CENTER - | | | | | | LABORATORY | | + + + + + + | RDW-SD | 47.0 (H) | 35.1 - 46.3 fL | [facility] | | | | | | [facility] | | | | | | MEDICAL | | | | | | CENTER - | | | | | | LABORATORY | | + + + + + + | Platelet | 383 | 140 - 440 K/uL | [facility] | | | Count | | | [facility] | | | | | | MEDICAL | | | | | | CENTER - | | | | | | LABORATORY | | + + + + + + | MPV | 9.7 | 6.5 - 12.4 fL | [facility] | | | | | | [facility] | | | | | | MEDICAL | | | | | | CENTER - | | | | | | LABORATORY | | + + + + + + | % | 64.3 | 45.0 - 82.0 % | [facility] | | | Neutrophils | | | [facility] | | | | | | MEDICAL | | | | | | CENTER - | | | | | | LABORATORY | | + + + + + + | % | 24.2 | 20.0 - 45.0 % | [facility] | | | Lymphocytes | | | [facility] | | | | | | MEDICAL | | | | | | CENTER - | | | | | | LABORATORY | | + + + + + + | % Monocytes | 10.0 | 4.0 - 12.0 % | [facility] | | | | | | [facility] | | | | | | MEDICAL | | | | | | CENTER - | | | | | | LABORATORY | | + + + + + + | % | 1.0 | 0.0 - 5.0 % | [facility] | | | Eosinophils | | | [facility] | | | | | | MEDICAL | | | | | | CENTER - | | | | | | LABORATORY | | + + + + + + | % Basophils | 0.4 | 0.0 - 1.0 % | [facility] | | | | | | [facility] | | | | | | MEDICAL | | | | | | CENTER - | | | | | | LABORATORY | | + + + + + + | % Immature | 0.1Comment: For | 0.0 - 0.4 % | [facility] | | | Granulocyte | patients, use the | | [facility] | | | s | special reference ranges | | MEDICAL | | | | listed below. | | CENTER - | | | | | | LABORATORY | | + + + + + + | Absolute | 5.02 | 1.80 - 8.50 | [facility] | | | Neutrophils | | K/uL | [facility] | | | | | | MEDICAL | | | | | | CENTER - | | | | | | LABORATORY | | + + + + + + | Absolute | 1.89 | 0.60 - 3.20 | [facility] | | | Lymphocytes | | K/uL | [facility] | | | | | | MEDICAL | | | | | | CENTER - | | | | | | LABORATORY | | + + + + + + | Absolute | 0.78 | 0.00 - 1.00 | [facility] | | | Monocytes | | K/uL | [facility] | | | | | | MEDICAL | | | | | | CENTER - | | | | | | LABORATORY | | + + + + + + | Absolute | 0.08 | 0.00 - 0.40 | [facility] | | | Eosinophils | | K/uL | [facility] | | | | | | MEDICAL | | | | | | CENTER - | | | | | | LABORATORY | | + + + + + + | Absolute | 0.03 | 0.00 - 0.10 | [facility] | | | Basophils | | K/uL | [facility] | | | | | | MEDICAL | | | | | | CENTER - | | | | | | LABORATORY | | + + + + + + | Absolute | 0.01Comment: For | 0.00 - 0.03 | [facility] | | | Immature | patients, use | K/uL | [facility] | | | Granulocyte | the special reference | | MEDICAL | | | s | ranges listed below. | | CENTER - | | | | | | LABORATORY | | + + + + + + | % nRBC | 0 | 0 - 2 per 100 | [facility] | | | | | WBC's | [facility] | | | | | | MEDICAL | | | | | | CENTER - | | | | | | LABORATORY | | + + + + + + | Absolute | 0.00 | 0.00 - 0.01 | [facility] | | | nRBC | | K/uL | [facility] | | | | | | MEDICAL | | | | | | CENTER - | | | | | | LABORATORY | | + + + + + + + + | Specimen | + + | Blood | + + + + + | Narrative | Performed At | + + + | IMMATURE GRANULOCYTES - For patients, use the following | [facility] | | reference ranges: Trim. Absolute (K/uL) Percentage (%) | [facility] | | 1st 0.003-0.091 K/uL 0.0-0.9% 2nd 0.007-0.247 K/uL | [facility] | | 0.1-2.0% 3rd 0.018-0.456 K/uL 0.1-2.0% | - LABORATORY | + + + + + + + + | Performing | Address | City/State/Zipcode | Phone Number | | Organization | | | | + + + + + | [facility] | [address] | [place] | [phone] | | [facility] | | [address] | | | - LABORATORY | | | | + + + + + Drugs of Abuse, Screen, Urine (10/19/2018 12:42 PM PST) + + + + + [...] + + + + | Benzodiazep | Positive (A) | Negative | [facility] [address] | [place] | [phone] | | [facility] | | [address] | | | - LABORATORY | | | | + + + + + documented in this encounter Visit Diagnoses + + | Diagnosis | + + | Psychosis, unspecified psychosis type (HCC) - Primary | + + documented in this encounter Administered Medications + +--------+ +------+------+ + | Medication Order | MAR | Action | Dose | Rate | Site | | | Action | Date | | | | + +--------+ +------+------+ + | haloperidol lactate (HALDOL) | Given | 10/19/20 | 5 mg | | Ventrogl | | injection 5 mg 5 mg, | | 18 9:36 | | | uteal-Ri | | Intramuscular, EVERY 6 HOURS PRN, | | AM PST | | | ght | | Agitation, Starting 10/19/18 | | | | | | | at 0906 | | | | | | + +--------+ +------+------+ + +---+---+ | | | +---+---+ + +-------+ +------+---+ + | haloperidol lactate (HALDOL) | Given | 10/19/20 | 5 mg | | Ventrogl | | injection 5 mg 5 mg, | | 18 12:24 | | | uteal-Le | | Intramuscular, ONCE, e 10/19/18 | | PM PST | | | ft | | at 1200, For 1 dose | | | | | | + +-------+ +------+---+ + +---+---+ | | | +---+---+ + +-------+ +------+---+ + | LORazepam (ATIVAN) injection 2 | Given | 10/19/20 | 2 mg | | Ventrogl | | mg 2 mg, Intramuscular, ONCE, | | 18 9:36 | | | uteal-Ri | | 10/19/18 at 0910, For 1 dose | | AM PST | | | ght | + +-------+ +------+---+ + +---+---+ | | | +---+---+ + +-------+ +-------+---+ + | OLANZapine (zyPREXA) injection | Given | 10/19/20 | 10 mg | | Leg-Righ | | 10 mg 10 mg, Intramuscular, | | 18 8:44 | | | t Upper | | ONCE, 10/19/18 at 2035, For 1 | | PM PST | | | | | dose, Mix with 2.1 mL sterile | | | | | | | water to make 5 mg/mL. Do not | | | | | | | exceed 30 mg/day., | | | | | | + +-------+ +-------+---+ + +---+---+ | | | +---+---+ documented in this encounter
--- OUTSIDE RECORDS SUMMARY | ~2019-12-09 | XMS | Encounter Summary ---
Demographics + + + | Address | [address] | | | [place] [address] | + + + | Home Phone [...] + | Author | [facility] | | | and [place] | + + + | Organization | [facility] | | | and [place] | + + + | Address | Unknown | + + + | Phone | Unavailable | + + + Support + + + + + | Name | Relationship | Address | Phone | + + + + + | Vanesa Shukla | ECON | [place] | | | | | [address] | | + + + + + | Vanesa Shukla | ECON | [place] | | | | | [address] | | + + + + + Care Team Providers + +------+ + | Care Affiliate Marketing Coordinator Name | Role | Phone | + [...] + + | 10/19/ | Emergency | [facility] | Nolberto Holm | Psychosis, | | 2018 | | MED CTR EM[facility] | MD Kasi [address] | unspecified | | | | CENTER [address] | [address] [place] | psychosis type (HCC) | | | | [place] | [place] [address] | (Primary Dx) | | | | [address] | [phone] | | | | | [phone] | | | | | | | Quinn Galarza MD | | | | | | [address] | | | | | | [place] | | | | | | [id number] | | | | | | | [...] E?MRN: | | | | | | [id number] | | | [id number] | | | his | | | [...] | | | ent/33 | | | [id number] | | | [phone] | | | [...] | | | St. | | | [facility] | | | y | | | [...] | | | St. | | | [facility] | | | y | | | Hospit | | | al | | | Patien | | | t is | | | curren | | | tly | | | establ | | | ished | | | with | | | St | | | [facility] | | | y | | | [...] St | | | | | | [facility] | | | y | | | [...] + | [facility] | [address] | [place] | [phone] | | [facility] | | [address] | | | - LABORATORY | | [...] ST. | [address] | [place], [place] | [phone] | | [facility] | | [address] | | | - LABORATORY | | [...] [address] | [place] | [phone] | | [facility] | | [address] | | | - LABORATORY | | [...] + | [facility] | [address] | [place] | [phone] | | [facility] | | [address] | | | - LABORATORY | | [...] + | [facility] | [address] | [place] | [phone] | | [facility] | | [address] | | | - LABORATORY | | [...] ST. | [address] | [place], [place] | [phone] | | [facility] | | [address] | | | - LABORATORY | | [...] mL/min/1.73m2 | [facility] | | | [place] | RATE,ESTIMATED | | MEDICAL | | | | mL/min/1.16g4Ftrz than | | CENTER - | | [...] + | [facility] | [address] | [place] | [phone] | | [facility] | | [address] | | | - LABORATORY | | [...] | | | | WBC's | [facility] | | | | [...] 0.003-0.091 K/uL 0.0-0.9% 2nd 0.007-0.247 K/uL | [facility] | | 0.1-2.0% 3rd 0.018-0.456 K/uL 0.1-2.0% | - LABORATORY | + + + + + + + + | Performing | Address | City/State/Zipcode | Phone Number | | Organization | | | | + + + + + | [facility] | [address] | [place] | [phone] | | [facility] | | [address] | | | - LABORATORY | | [...] [address] | [place] | [phone] | | [facility] | | [address] | | | - LABORATORY | | [...]
--- OUTSIDE RECORDS SUMMARY | ~2019-12-09 | XMS | Encounter Summary ---
Demographics + + + | Address | [address] | | | [place] [address] | + + + | Home Phone [...] [place] | | | | | [address] | | + + + + + | Vanesa Shukla | ECON | [place] | | | | | [address] | | + + + + + Care Team Providers + +------+ + | Care Hot Room Attendant Name | Role | Phone | + +------+ + PCP | Unavailable | + +------+ + Encounter Details +--------+ + + + + | Date | Type | Department | Care Team | Description | +--------+ + + + + | 05/15/ | Hospital | [facility] | Nolberto Holm | | | 1998 | Encounter | [facility] | MD Kasi [address] | | | | | [place] [address] | [facility] | | | | | [place], [place] | [place] [address] | | | | | [address] | [phone] | | | | | [phone] | | | +--------+ + + + [...]
--- OUTSIDE RECORDS SUMMARY | ~2019-12-09 | XMS | Encounter Summary ---
Demographics + + + | Address | [address] | | | [place] [address] | + + + | Home Phone | | + + + | Preferred Language | Unknown | + + + | Marital Status | Single | + + + | Christian Affiliation | Unknown | + + + | Race | Unknown | + + + | Ethnic Group | Unknown | + + + Author + + + | Author | [facility] | | | and [place] | + + + | Organization | [facility] | | | and [place] | + + + | Address | Unknown | + + + | Phone | Unavailable | + + + Support + + + + + | Name | Relationship | Address | Phone | + + + + + | Vnaesa Shukla | ECON | [place] | | | | | [address] | | + + + + + | Vanesa Shukla | ECON | [place] | | | | | [address] | | + + + + + Care Team Providers + +------+ + | Care Gasoline Truck Operator Name | Role | Phone | + +------+ + PCP | Unavailable | + +------+ + Encounter Details +--------+ + + + + | Date | Type | Department | Care Team | Description | +--------+ + + + + | 02/15/ | Hospital | [facility] | Nolberto Holm | | | 2003 | Encounter | MED CTR EMER[facility]ENCY | MD Kasi [address] | | | | | [place] [address] | [facility] | | | | | [place], [place] | [place] [address] | | | | | [address] | [phone] | | | | | [phone] | | | +--------+ + + + [...]
--- OUTSIDE RECORDS SUMMARY | ~2019-12-09 | XMS | Encounter Summary ---
Demographics + + + | Address | [address] | | | [place] [address] | + + + | Home Phone | | + + + | Preferred Language | Unknown | + + + | Marital Status | Single | + + + | Episcopal Affiliation | Unknown | + + + | Race | Unknown | + + + | Ethnic Group | Unknown | + + + Author + + + | Author | [facility] | | | and [place] | + + + | Organization | [facility] | | | and [place] | + + + | Address | Unknown | + + + | Phone | Unavailable | + + + Support + + + + + | Name | Relationship | Address | Phone | + + + + + | Vanesa Shukla | ECON | [place] | | | | | [address] | | + + + + + | Vanesa Shukla | ECON | [place] | | | | | [address] | | + + + + + Care Team Providers + +------+ + | Care Gold Miner Name | Role | Phone | + +------+ + PCP | Unavailable | + +------+ + Encounter Details +--------+ + + + + | Date | Type | Department | Care Team | Description | +--------+ + + + + | 09/15/ | Hospital | [facility] | Alfonso Blake MD | | | 2007 | Encounter | [facility] [address] | | | | | [place] | [place], [place] | | | | | [place] [address] | [address] | | | | | [phone] | | | +--------+ + + + [...]
--- OUTSIDE RECORDS SUMMARY | ~2019-12-09 | XMS | Encounter Summary ---
Demographics + + + | Address | [address] | | | [place] [address] | + + + | Home Phone | | + + + | Preferred Language | Unknown | + + + | Marital Status | Single | + + + | Church Affiliation | Unknown | + + + | Race | Unknown | + + + | Ethnic Group | Unknown | + + + Author + + + | Author | [facility] | | | and [place] | + + + | Organization | [facility] | | | and [place] | + + + | Address | Unknown | + + + | Phone | Unavailable | + + + Support + + + + + | Name | Relationship | Address | Phone | + + + + + | Vanesa Shukla | ECON | [place] | | | | | [address] | | + + + + + | Vanesa Shukla | ECON | [place] | | | | | [address] | | + + + + + Care Team Providers + +------+ + | Care Software Test Manager Name | Role | Phone | [...] + + | 07/24/ | Emergency | [facility] | Juan Pablo Sierra, | Acute exacerbation | | 2015 | | MED CTR EMERGENCY | [place] [address] | of psychosis | | | | [place] [address] | [place], [place] | (Primary Dx); Severe | | | | [place], [place] | [address] | episode of | | | | [address] | | recurrent major | | | | [phone] | | depressive disorder, | | | [...] be sent through Care Everywhere.ADDICTION, ALYSON CTION (SALVADOREAN)ADDICTION, RECOVERING (SALVADOREAN)ADDICTION: YOUR TREATMENT OPTIONS (SALVADOREAN)doc umented in this encounter Medications at Time [...] | | mercedes (multiple | | [facility] | | | | morphologies | | [...] + + | Performing | Address | City/State/[facility] | Phone Number | | Organization | | | | + + + + + | [facility] | [address] | [place], [place] | [phone] | | [facility] | | [address] | | | - LABORATORY | | [...] [address] | [place] | [phone] | | [facility] | | [address] | | | - LABORATORY | | [...] Urine | | Yellow, Straw | [facility] | | | | | | MEDICAL [...] - 1.030 | [facility] | | | [place] | | | [facility] | | [...] + | [facility] | [address] | [place] | [phone] | | [facility] | | [address] | | | - LABORATORY | | [...] | [facility] | [address] | [place]enna [place] | [phone] | | [facility] | | [address] | | | - LABORATORY | | [...] + | [facility] | [address] | [place]enna [place] | [phone] | | [facility] | | [address] | | | - LABORATORY | | [...] | + + + + + | [facility] | [address] | [place] | [phone] | | [facility] | | [address] | | | - LABORATORY | | [...] [address] | [place] | [phone] | | [facility] | | [address] | | | - LABORATORY | | [...] [address] | [place] | [phone] | | [facility] | | [address] | | | - LABORATORY | | [...] | | | FILTRATION | mL/min/1.73m2 | [facility] | | | SAUDI ARABIAN | RATE,ESTIMATED | | MEDICAL | | | | mL/min/1.59o2Qoxv than | | CENTER - | | [...] [address] | [place] | [phone] | | [facility] | | [address] | | | - LABORATORY | | [...] [address] | [place] | [phone] | | [facility] | | [address] | | | - LABORATORY | | [...] | | | | CATALINO HARKINS MD ([id number]) | | | | | | on [...]
--- OUTSIDE RECORDS SUMMARY | ~2019-12-09 | XMS | Encounter Summary ---
Demographics + + + | Address | [address] | | | [place] [address] | + + + | Home Phone | | + + + | Preferred Language | Unknown | + + + | Marital Status | Single | + + + | Yazidism Affiliation | Unknown | + + + [...] [place] | | | | | [address] | | + + + + + | Vanesa Shukla | ECON | [place] | | | | | [address] | | + + + + + Care Team Providers + +------+ + | Care Director Of Real Estate Name | Role | Phone | + +------+ + PCP | Unavailable | + +------+ + Encounter Details +--------+ + + + + | Date | Type | Department | Care Team | Description | +--------+ + + + + | 04/23/ | Hospital | [facility] | | | | 2010 | Encounter | MED CTR XRAY [address] | | | | | [place] | | | | | | [place] [address] | | | | | | [phone] | | | +--------+ + + + [...] Performed At | + + + | [facility] | [place] | | [address] [place] | [facility] | | E C H O C A R D | DIAG IMG | | I O G R A P H Y R E P O R T HEIGHT: 61" | | | WEIGHT: 217# BOARD OF DIRECTORS: SMZ REFERRING DR: HELDER | | | [...] Transcribed Date/Time: 04/24/2011 12:12 | | | Multigrapher: <Electronically Signed by Brandon Soriano, | | | MD> 04/24/11 1541 | | + + + + + | Procedure Note | + + | James Godfrey Conversion - 01/06/2014 3:01 PM [facility] | | Diagnostic Imaging Department | | [address] [facility] | | | | | | | | E C H O C A R D I O G R A P H Y R E P O R T | | | | | | HEIGHT: 61" WEIGHT: 217# BOARD OF DIRECTORS: YULIYA | | REFERRING DR: HELDER GONZALEZ [...] | Transcribed Date/Time: 04/24/2011 12:12 | | Multigrapher: | | <Electronically Signed by Brandon Soriano MD> 04/24/11 1549 | + + + +---------+ + + [...]
--- OUTSIDE RECORDS SUMMARY | ~2019-12-09 | XMS | Encounter Summary ---
Demographics + + + | Address | [address] | | | [place] [address] | + + + | Home Phone | | + + + | Preferred Language | Unknown | + + + | Marital Status | Single | + + + | Religion Affiliation | Unknown | + + + | Race | Unknown | + + + | Ethnic Group | Unknown | + + + Author + + + | Author | [facility] | | | and [place] | + + + | Organization | [facility] | | | and [place] | + + + | Address | Unknown | + + + | Phone | Unavailable | + + + Support + + + + + | Name | Relationship | Address | Phone | + + + + + | Vanesa Shukla | ECON | [place] | | | | | [address] | | + + + + + | Vanesa Shukla | ECON | [place] | | | | | [address] | | + + + + + Care Team Providers + +------+ + | Care Lace Roller Name | Role | Phone | + +------+ + PCP | Unavailable | + +------+ + Encounter Details +--------+ + + + + | Date | Type | Department | Care Team | Description | +--------+ + + + + | 12/17/ | Hospital | [facility] | [place], | | | 2006 - | Encounter | MED CTR EMERGENCY | Layo Thomas MD [address] | | | | | [place] [address] | [place] [facility] | | | 12/18/ | | [place], [place] | [place] [address] | | | 2006 | | [address] | [phone] | | | | | [phone] | | | +--------+ + + + [...]
[~2019-12-09 22:59] MED LIST changes: +CLARITHROMYCIN500 MG PO
--- OUTSIDE RECORDS SUMMARY | 2019-12-09 23:02 | XMS ---
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 [place] PROVIDERS Adrian De Souza [facility] 01/25/2019-Current PHONE: Unknown ADRIAN LI Primary Care Current PHONE: [phone] Adrian Li Primary Care Current PHONE: Unknown Alfonso Blake Primary Care Current PHONE: Unknown Care Guidelines exist for the following facilities: [facility] ( 06/06/2019 ) Care History Medical/Surgical 06/30/2018 [facility] - Patient is currently established with [facility]. If patient is seen in the ED during business hours. Please contact CHWs at [facility]. Care Recommendation: This patient has had 5 [...] care. E.D. VISIT COUNT (12 MO.) 2 [facility]. TOTAL 2 NOTE: Visits indicate total known visits. 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
[2019-12-09] MEDS ORDERED: PROPRANOLOL HCL10 MG PO (23:17)
--- NOTE | 2019-12-10 08:05 | EKG ---
[facility] [address] [facility] [address] [place], [place] [address] Signed Normal sinus rhythm Normal ECG When compared with ECG of 15-JAN-2017 09:06, Nonspecific T wave abnormality now evident in Anterior leads Confirmed by SAROJ PEREZ MD ([id number]) on 12/10/2019 8:05:13 AM Electronically Signed By: SAROJ PEREZ MD 12/10/19804 PATIENT NAME: HUGH GARRETT Electrocardiogram DATE OF : 80 PHYSICIAN: SAROJ PEREZ MD REPORT #: [id number] REPORT IS CONFIDENTIAL AND NOT TO BE RELEASED WITHOUT AUTHORIZATION
== END 2019-12-10 11:39 | disposition home or self-care (01) ==
LOC: ED 22:59
DX: R45.1 Restlessness and agitation (principal); F32.9 Major depressive disorder, single episode, unspecified; F41.9 Anxiety disorder, unspecified; F43.10 Post-traumatic stress disorder, unspecified; G43.909 Migraine, unspecified, not intractable, without status migrainosus; F17.200 Nicotine dependence, unspecified, uncomplicated; Z88.8 Allergy status to other drugs, medicaments and biological substances; Z88.2 Allergy status to sulfonamides; Z88.1 Allergy status to other antibiotic agents; Z79.899 Other long term (current) drug therapy
CPT/HCPCS: 93005; 93010; 96374; 99284-25; J1200; J1630; J2060; J2405; J7030

== ENCOUNTER 2020-03-16 01:38 | Emergency (ER) | payer OTHER ==
[~2020-03-16] VITALS: Ht 157.5 cm; Wt 95.2 kg
[~2020-03-16 01:38] MED LIST changes: +PROPRANOLOL HCL10 MG PO
--- OUTSIDE RECORDS SUMMARY | 2020-03-16 01:57 | XMS ---
PreManage Notification: HUGH GARRETT Security Dragline Operator Events No recent Security Events currently on file CRITERIA MET - Group Notification - [facility] - Has Care Guidelines - PDMP CARE PROVIDERS Antoine De Souza [facility] 01/25/2019-Current PHONE: [phone] Guidelines Source: [facility] Guidelines Date: 12/16/2019 Care Coordination: Currently engaged in mental health services with [facility].\T\nbsp; Please contact [facility] for mental health concerns.\T\nbsp; [place] office: [phone]. Additional care guidelines exist for the following facilities: [facility] ( 06/06/2019 ) Care History Medical/Surgical 12/12/2019 [facility] - PATIENT DOES NOT CURRENTLY HAVE A PCP- PATIENT LAST PCP DR DE SOUZA- HAS NOT REESTABLISHED CARE WITH A PCP. - NO PCP LETTER SENT TO PATIENT E.D. VISIT COUNT (12 MO.) 2 [facility] TOTAL 2 NOTE: Visits indicate total known visits. ED/UCC VISIT TRACKING (12 MO.) 03/16/2020 01:38 [facility] [place] TYPE: Emergency COMPLAINT: - URINE PROBLEM/BACK PAIN 12/09/2019 22:59 [facility] [place] TYPE: Emergency COMPLAINT: - MEDICAL CLEARANCE DIAGNOSES: - Allergy status to other drugs, medicaments and biological sub - Restlessness and agitation - Migraine, unspecified, not intractable, without status migrai - Allergy status to sulfonamides status - Other termite technician (current) drug therapy - Allergy status to other antibiotic agents status - Major depressive disorder, single episode, unspecified - Post-traumatic stress disorder, unspecified - Nicotine dependence, unspecified, uncomplicated - Anxiety disorder, unspecified INPATIENT VISIT TRACKING (12 MO.) No inpatient visits to display in this time frame [id number]
[2020-03-16] MEDS ORDERED: LAMOTRIGINE200 MG PO (03:04)
[2020-03-16] MEDS ORDERED: CIPROFLOXACIN500 MG PO (03:04)
[2020-03-16] MEDS ORDERED: CLONIDINE HCL0.1 M1 PO (03:06)
== END 2020-03-16 04:36 | disposition home or self-care (01) ==
LOC: ED 01:38
DX: M54.5 Low back pain (principal); R10.2 Pelvic and perineal pain; F41.9 Anxiety disorder, unspecified; F32.9 Major depressive disorder, single episode, unspecified; F17.200 Nicotine dependence, unspecified, uncomplicated; Z88.8 Allergy status to other drugs, medicaments and biological substances; Z79.899 Other long term (current) drug therapy
CPT/HCPCS: 74176; 80053; 83690; 85025; 87491; 87591; 99284-25

== ENCOUNTER 2021-04-19 12:11 | Emergency (ER) | payer OTHER ==
[~2021-04-19] VITALS: Ht 157.5 cm; Wt 95.2 kg
[~2021-04-19 12:11] MED LIST changes: +CIPROFLOXACIN500 MG PO; +CLONIDINE HCL0.1 M1 PO; +LAMOTRIGINE200 MG PO
--- OUTSIDE RECORDS SUMMARY | 2021-04-19 12:14 | XMS ---
PreManage Notification: HUGH GARRETT Security Glass Novelty Maker Events No recent Security Events currently on file CRITERIA MET - [facility] Has Care Guidelines CARE PROVIDERS PINA MCCLAIN Physician [employer] Hospitalist 11/08/2020-Current PHONE: [phone] Antoine De Souza [facility] 01/25/2019-Current PHONE: [phone] Guidelines Source: [facility] [place] Guidelines Date: 12/16/2019 Care Coordination: Currently engaged in mental health services with [facility].\T\nbsp; Please contact [facility] for mental health concerns.\T\nbsp; [place] office: [phone]. Additional care guidelines exist for the following facilities: [facility] ( 06/06/2019 ) Care History Medical/Surgical 03/16/2020 [facility] - PATIENT HAS AN APT WITH DR MCBRIDE 09/12/2020. NOTIFIED CLINIC OF RECENT ED VISIT. [facility] PATIENT DOES NOT CURRENTLY HAVE A PCP- PATIENT LAST PCP DR DE SOUZA- HAS NOT REESTABLISHED CARE WITH A PCP. - NO PCP LETTER SENT TO PATIENT E.D. VISIT COUNT (12 MO.) [address] [facility] [place] [facility] TOTAL 1 NOTE: Visits indicate total known visits. ED/UCC VISIT TRACKING (12 MO.) 04/19/2021 12:13 [facility] [place] [facility] COMPLAINT: - MEDICAL CLEARANCE INPATIENT VISIT TRACKING (12 MO.) No inpatient visits to display in this time frame [id number]
[2021-04-19] MEDS ORDERED: NITROFURANTOIN100 M1 PO (13:09)
[2021-04-19] MEDS ORDERED: NICOTINE1 EAC1 TOP (13:09)
[2021-04-19] MEDS ORDERED: HYDROXYZINE PAM25 MG PO (13:10)
--- NOTE | 2021-04-21 11:30 | EKG ---
[facility] [address] [place] [address] Signed Normal sinus rhythm Normal ECG When compared with ECG of 09-DEC-2019 23:32, Nonspecific T wave abnormality no longer evident in Inferior leads Confirmed by ANDREAS PETERSON MD ([id number]) on 04/21/2021 11:30:45 AM Electronically Signed By: ANDREAS PETERSON MD 04/21/21 1130 PATIENT NAME: HUGH GARRETT Electrocardiogram DATE OF : 80 PHYSICIAN: ANDREAS PETERSON MD REPORT #: [id number] REPORT IS CONFIDENTIAL AND NOT TO BE RELEASED WITHOUT AUTHORIZATION
== END 2021-04-21 16:00 | disposition home or self-care (01) ==
LOC: ED 12:11
DX: F29 Unspecified psychosis not due to a substance or known physiological condition (principal); R45.851 Suicidal ideations; G43.909 Migraine, unspecified, not intractable, without status migrainosus; F17.200 Nicotine dependence, unspecified, uncomplicated; Z88.8 Allergy status to other drugs, medicaments and biological substances; Z88.1 Allergy status to other antibiotic agents; Z88.2 Allergy status to sulfonamides; Z79.899 Other long term (current) drug therapy; Z20.822 Contact with and (suspected) exposure to COVID-19
CPT/HCPCS: 36415; 80053; 80176; 81001; 84443; 84703; 85025; 93005; 93010; 96372; 99285-25; C9803; J1630; J2060; J3486; U0003

== ENCOUNTER 2021-04-24 15:11 | Emergency (ER) | payer OTHER ==
[~2021-04-24] VITALS: Ht 157.5 cm; Wt 95.2 kg
[~2021-04-24 15:11] MED LIST changes: +HYDROXYZINE PAM25 MG PO; +NICOTINE1 EAC1 TOP; +NITROFURANTOIN100 M1 PO
--- OUTSIDE RECORDS SUMMARY | 2021-04-24 15:14 | XMS ---
PreManage Notification: HUGH GARRETT Security Machine Mover Events No recent Security Events currently on file CRITERIA MET - [facility] - Has Care Guidelines - [facility] - 2 Visits in 30 Days CARE PROVIDERS PINA MCCLAIN Physician Legal Editor 11/08/2020-Current PHONE: [phone] Antoine De Souza [facility] 01/25/2019-Current PHONE: [phone] Guidelines [facility]: [facility] Guidelines Date: 12/16/2019 Care Coordination: Currently engaged in mental health services with [facility].\T\nbsp; Please contact [facility] for mental health concerns.\T\nbsp; [place] office: [phone]. Additional care guidelines exist for the following facilities: [facility] ( 06/06/2019 ) Care History Medical/Surgical 03/16/2020 [facility] - PATIENT HAS AN APT WITH DR MCBRIDE 09/12/2020. NOTIFIED CLINIC OF RECENT ED VISIT. 12/12/2019 [facility] - PATIENT DOES NOT CURRENTLY HAVE A PCP- PATIENT LAST PCP DR DE SOUZA- HAS NOT REESTABLISHED CARE WITH A PCP. - NO PCP LETTER SENT TO PATIENT E.D. VISIT COUNT (12 MO.) [facility] [place] TOTAL 2 NOTE: Visits indicate total known visits. ED/UCC VISIT TRACKING (12 MO.) 04/24/2021 15:12 [facility] [place] TYPE: Emergency COMPLAINT: - MEDICAL CLEARANCE 04/19/2021 12:13 [facility] [place] TYPE: Emergency COMPLAINT: - MEDICAL CLEARANCE DIAGNOSES: - Unspecified psychosis not due to a substance or known physiological condition - Allergy status to other antibiotic agents - Suicidal ideations - Migraine, unspecified, not intractable, without status migrainosus - Nicotine dependence, unspecified, uncomplicated - Other intermodal customer service (current) drug therapy - Allergy status to sulfonamides - Allergy status to other drugs, medicaments and biological substances INPATIENT VISIT TRACKING (12 MO.) No inpatient visits to display in this time frame [id number]
[2021-04-27] MEDS ORDERED: GEODON20 MG PO (13:13)
[2021-04-27] MEDS ORDERED: CEPHALEXIN500 MG PO (13:13)
== END 2021-04-27 13:21 | disposition short-term general hospital (02) ==
LOC: ED 15:11
DX: F22 Delusional disorders (principal); N39.0 Urinary tract infection, site not specified; F43.9 Reaction to severe stress, unspecified; F10.10 Alcohol abuse, uncomplicated; Y90.4 Blood alcohol level of 80-99 mg/100 ml; F43.10 Post-traumatic stress disorder, unspecified; G43.909 Migraine, unspecified, not intractable, without status migrainosus; F17.200 Nicotine dependence, unspecified, uncomplicated; Z88.8 Allergy status to other drugs, medicaments and biological substances; Z88.1 Allergy status to other antibiotic agents; Z88.2 Allergy status to sulfonamides; Z79.899 Other long term (current) drug therapy; Z20.822 Contact with and (suspected) exposure to COVID-19
CPT/HCPCS: 80053; 80176; 81001; 84443; 84703; 85025; 87077; 87088; 87186; 96372; 99285-25; A9270; C9803; J2060; J3486; U0003

== ENCOUNTER 2021-08-18 14:34 | Emergency (ER) | payer OTHER ==
[~2021-08-18] VITALS: Ht 157.5 cm; Wt 97.1 kg
[~2021-08-18 14:34] MED LIST changes: +CEPHALEXIN500 MG PO; +GEODON20 MG PO
--- OUTSIDE RECORDS SUMMARY | 2021-08-18 14:36 | XMS ---
PreManage Notification: HUGH GARRETT Security Carburetor Repairer Events No recent Security Events currently on file CRITERIA MET - [facility] CARE PROVIDERS PINA MCCLAIN Physician Educational Technologist 11/08/2020-Current PHONE: [phone] Antoine De Souza [facility] 01/25/2019-Current PHONE: [phone] Care Guidelines exist for the following facilities: [facility] ( 12/16/2019 ) [facility] ( 06/06/2019 ) Care History Medical/Surgical 03/16/2020 [facility] - PATIENT HAS AN APT WITH DR MCBRIDE 09/12/2020. NOTIFIED CLINIC OF RECENT ED VISIT. 12/12/2019 [facility] - PATIENT DOES NOT CURRENTLY HAVE A PCP- PATIENT LAST PCP DR DE SOUZA- HAS NOT REESTABLISHED CARE WITH A PCP. - NO PCP LETTER SENT TO PATIENT M[place]. VISIT COUNT (12 MO.) 3 [facility] [place] TOTAL 3 NOTE: Visits indicate total known visits. ED/UCC VISIT TRACKING (12 MO.) 08/18/2021 14:35 [facility] [place] TYPE: Emergency COMPLAINT: - CONGESTION, COVID + 04/24/2021 15:12 [facility] [place] TYPE: Emergency COMPLAINT: - MEDICAL CLEARANCE DIAGNOSES: - Reaction to severe stress, unspecified - Allergy status to other drugs, medicaments and biological substances - Allergy status to sulfonamides - Blood alcohol level of 80-99 mg/100 ml - Alcohol abuse, uncomplicated - Allergy status to other antibiotic agents - Urinary tract infection, site not specified - Delusional disorders - Migraine, unspecified, not intractable, without status migrainosus - Nicotine dependence, unspecified, uncomplicated - Post-traumatic stress disorder, unspecified - Other prison (current) drug therapy 04/19/2021 12:13 [facility] [place] TYPE: Emergency COMPLAINT: - MEDICAL CLEARANCE DIAGNOSES: - Unspecified psychosis not due to a substance or known physiological condition - Allergy status to other antibiotic agents - Suicidal ideations - Migraine, unspecified, not intractable, without status migrainosus - Nicotine dependence, unspecified, uncomplicated - Other prison (current) drug therapy - Allergy status to sulfonamides - Allergy status to other drugs, medicaments and biological substances INPATIENT VISIT TRACKING (12 MO.) No inpatient visits to display in this time frame [id number]
[2021-08-18] MEDS ORDERED: OLANZAPINE5 MG PO (15:00)
== END 2021-08-18 17:54 | disposition home or self-care (01) ==
LOC: ED 14:34
DX: J06.9 Acute upper respiratory infection, unspecified (principal); J45.909 Unspecified asthma, uncomplicated; F43.10 Post-traumatic stress disorder, unspecified; G43.909 Migraine, unspecified, not intractable, without status migrainosus; F17.200 Nicotine dependence, unspecified, uncomplicated; Z88.8 Allergy status to other drugs, medicaments and biological substances; Z88.2 Allergy status to sulfonamides; Z88.1 Allergy status to other antibiotic agents; Z79.899 Other long term (current) drug therapy
CPT/HCPCS: 71045; 99284-25

== ENCOUNTER 2021-08-22 21:17 | Emergency (ER) | payer OTHER ==
[~2021-08-22] VITALS: Ht 157.5 cm; Wt 90.7 kg
[~2021-08-22 21:17] MED LIST changes: +OLANZAPINE5 MG PO
--- OUTSIDE RECORDS SUMMARY | 2021-08-22 21:24 | XMS ---
PreManage Notification: HUGH GARRETT Security Dock Or Pier Laborer Events No recent Security Events currently on file CRITERIA MET - [facility] - 2 Visits in 30 Days CARE PROVIDERS PINA MCCLAIN Physician Inspector Final Assembly Mechanical 11/08/2020-Current PHONE: [phone] Antoine De Souza [facility] 01/25/2019-Current PHONE: [phone] Care Guidelines exist for the following facilities: [facility] ( 12/16/2019 ) [facility] ( 06/06/2019 ) Care History Medical/Surgical 03/16/2020 [facility] - PATIENT HAS AN APT WITH DR MCBRIDE 09/12/2020. NOTIFIED CLINIC OF RECENT ED VISIT. 12/12/2019 [facility] - PATIENT DOES NOT CURRENTLY HAVE A PCP- PATIENT LAST PCP DR DE SOUZA- HAS NOT REESTABLISHED CARE WITH A PCP. - NO PCP LETTER SENT TO PATIENT E.D. VISIT COUNT (12 MO.) 4 [facility] TOTAL 4 NOTE: Visits indicate total known visits. ED/UCC VISIT TRACKING (12 MO.) 08/22/2021 21:17 [facility] [place] TYPE: Emergency COMPLAINT: - CONFUSION 08/18/2021 14:35 [facility] [place] TYPE: Emergency COMPLAINT: - CONGESTION DIAGNOSES: - Unspecified asthma, uncomplicated - Post-traumatic stress disorder, unspecified - Acute upper respiratory infection, unspecified - Allergy status to other drugs, medicaments and biological substances - Migraine, unspecified, not intractable, without status migrainosus - Nicotine dependence, unspecified, uncomplicated - Allergy status to other antibiotic agents - Allergy status to sulfonamides - Vomiting, unspecified - Other prison (current) drug therapy 04/24/2021 15:12 [facility] [place] TYPE: Emergency COMPLAINT: - MEDICAL [...] Other prison (current) drug therapy 04/19/2021 12:13 [facility] [place] TYPE: Emergency COMPLAINT: - MEDICAL [...] visits to display in this time frame [id number]
[2021-08-22] MEDS ORDERED: ARIPIPRAZOLE2 MG PO (23:03)
[2021-08-22] MEDS ORDERED: CLONAZEPAM0.5 MG PO (23:04)
--- NOTE | 2021-08-24 22:03 | EKG ---
[facility] [address] [place], [place] [address] Signed Normal sinus rhythm Normal ECG When compared with ECG of 19-APR-2021 13:31, No significant change was found Confirmed by LASHAE TEE DO ([id number]) on 08/24/2021 10:03:05 PM Electronically Signed By: LASHAE TEE DO 08/24/212202 PATIENT NAME: HUGH GARRETT LENNY Electrocardiogram DATE OF : 80 PHYSICIAN: LASHAE TEE DO REPORT #: [id number] REPORT IS CONFIDENTIAL AND NOT TO BE RELEASED WITHOUT AUTHORIZATION
== END 2021-08-26 16:45 | disposition short-term general hospital (02) ==
LOC: ED 21:17
DX: Z00.8 Encounter for other general examination (principal); Z20.822 Contact with and (suspected) exposure to COVID-19
CPT/HCPCS: 80053; 81001; 84443; 84703; 85025; 93005; 93010; 99285-25; C9803; G0480; U0003

== ENCOUNTER 2021-12-03 16:00 | Emergency (ER) | payer OTHER ==
[~2021-12-03] VITALS: Ht 157.5 cm; Wt 94.0 kg
[~2021-12-03 16:00] MED LIST changes: +ARIPIPRAZOLE2 MG PO; +CLONAZEPAM0.5 MG PO
== END 2021-12-04 07:39 | disposition home or self-care (01) ==
LOC: ED 16:00
DX: F91.9 Conduct disorder, unspecified (principal); F43.10 Post-traumatic stress disorder, unspecified; G43.909 Migraine, unspecified, not intractable, without status migrainosus; F17.200 Nicotine dependence, unspecified, uncomplicated; Z88.8 Allergy status to other drugs, medicaments and biological substances; Z88.2 Allergy status to sulfonamides; Z88.1 Allergy status to other antibiotic agents; Z79.899 Other long term (current) drug therapy
CPT/HCPCS: 80053; 81001; 84443; 85025; 96372; 99285; A9270-GY; G0480; J1630; J2060

== ENCOUNTER 2022-02-11 16:53 | Emergency (ER) | payer OTHER ==
[~2022-02-11] VITALS: Ht 157.5 cm; Wt 88.5 kg
--- OUTSIDE RECORDS SUMMARY | 2022-02-11 16:56 | XMS ---
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 NOTIFIED CLINIC OF RECENT ED VISIT. 12/12/2019 [facility] - PATIENT DOES NOT CURRENTLY HAVE A PCP- PATIENT LAST PCP DR DE SOUZA- HAS NOT REESTABLISHED CARE WITH A PCP. - NO PCP LETTER SENT TO PATIENT E.D. VISIT COUNT (12 MO.) 6 [facility] TOTAL 6 NOTE: Visits indicate total known visits. 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 - Allergy status to other drugs, medicaments and biological substances - Migraine, unspecified, not intractable, without status migrainosus - Allergy status to sulfonamides - Conduct disorder, unspecified - Post-traumatic stress disorder, unspecified - Allergy status to other antibiotic agents - Nicotine dependence, unspecified, uncomplicated 08/22/2021 21:17 [facility] [place] TYPE: Emergency COMPLAINT: - CONFUSION DIAGNOSES: - Nicotine dependence, unspecified, uncomplicated - Other retirement (current) drug therapy - Post-traumatic stress disorder, unspecified - Disorientation, unspecified - Catatonic disorder due to known physiological condition - Other dissociative and conversion disorders - Brief psychotic disorder - Encounter for other general examination - Anxiety disorder, unspecified - Other psychoactive substance use, 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, unspecified - Major depressive disorder, single episode, severe with psychotic features - Borderline personality disorder 08/18/2021 14:35 [facility] [place] TYPE: Emergency COMPLAINT: - CONGESTION DIAGNOSES: - Unspecified asthma, uncomplicated - Post-traumatic stress disorder, unspecified - Acute upper respiratory infection, unspecified - Allergy status to other drugs, medicaments and biological substances - Migraine, unspecified, not intractable, without status migrainosus - Nicotine dependence, unspecified, uncomplicated - Allergy status to other antibiotic agents - Allergy status to sulfonamides - Vomiting, unspecified - Other retirement (current) drug therapy 04/24/2021 15:12 [facility] [place] TYPE: Emergency [...] - Post-traumatic stress disorder, unspecified - 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 04/19/2021 12:13 [facility] [place] TYPE: Emergency COMPLAINT: - MEDICAL CLEARANCE DIAGNOSES: - Unspecified psychosis not due to a substance or known physiological condition - Allergy status to other antibiotic agents - Suicidal ideations - Migraine, unspecified, not intractable, without status migrainosus - Nicotine dependence, unspecified, uncomplicated - Other retirement (current) drug therapy - Allergy status to sulfonamides - Allergy status to other drugs, medicaments and biological substances INPATIENT VISIT TRACKING (12 MO.) No inpatient visits to display in this time frame [id number]
--- NOTE | 2022-02-12 18:24 | EKG ---
[facility] [address] [place], [place] [address] Signed Normal sinus rhythm Normal ECG When compared with ECG of 23-AUG-2021 18:26, No significant change was found decrease in rate Confirmed by SAROJ PEREZ MD ([id number]) on 02/12/2022 6:23:53 PM Electronically Signed By: SAROJ PEREZ MD 02/12/22 1824 PATIENT NAME: HUGH GARRETT Electrocardiogram DATE OF : 80 PHYSICIAN: SAROJ PEREZ MD REPORT #: [id number] REPORT IS CONFIDENTIAL AND NOT TO BE RELEASED WITHOUT AUTHORIZATION
== END 2022-02-13 13:31 | disposition home or self-care (01) ==
LOC: ED 16:53
DX: F23 Brief psychotic disorder (principal); G43.909 Migraine, unspecified, not intractable, without status migrainosus; F17.200 Nicotine dependence, unspecified, uncomplicated; Z88.8 Allergy status to other drugs, medicaments and biological substances; Z79.899 Other long term (current) drug therapy
CPT/HCPCS: 36415; 80048; 80053; 81001; 84443; 85025; 93005; 93010; 99285-25; G0480